=== PATIENT | female | born 1940 | race Caucasian/White ===

== ENCOUNTER 2017-01-15 | Outpatient (CLI) | payer SELFPAY | END 2017-01-15 13:02 | disposition EMS.NT | DX: R09.89 Other specified symptoms and signs involving the circulatory and respiratory systems (principal) ==

== ENCOUNTER 2017-04-05 08:00 | Outpatient (CLI) | payer MEDICARE, OTHER | END 2017-04-05 08:01 | disposition home or self-care (01) | DX: E55.9 Vitamin D deficiency, unspecified (principal); E78.5 Hyperlipidemia, unspecified; I10 Essential (primary) hypertension ==

== ENCOUNTER 2017-06-02 10:00 | Outpatient (CLI) | payer MEDICARE, OTHER | END 2017-06-02 10:15 | disposition home or self-care (01) | LOC: RT.N 10:00 | PROVIDERS: ATTEND Physician Assistant | DX: I10 Essential (primary) hypertension (principal) | CPT/HCPCS: 93005 ==

== ENCOUNTER 2017-06-02 10:00 | Outpatient (CLI) | payer MEDICARE, OTHER | END 2017-06-02 10:15 | disposition home or self-care (01) | LOC: RT.N 10:00 | PROVIDERS: ATTEND Physician Assistant | DX: I10 Essential (primary) hypertension (principal) | CPT/HCPCS: 93005 ==

== ENCOUNTER 2017-06-02 10:51 | Outpatient (CLI) | payer MEDICARE, OTHER ==
[2017-06-02 12:59] LABS: BASOPHILS # (AUTO) 0.1 10^3/uL (0.0-0.1); BASOPHILS % (AUTO) 1.8 %; EOSINOPHILS # (AUTO) 0.4 10^3/uL (0.0-0.7); EOSINOPHILS % (AUTO) 6.3 %; HCT - HEMATOCRIT 40.8 % (37.0-47.0); HGB - HEMOGLOBIN 13.8 g/dL (12.0-16.0); LYMPHOCYTES # (AUTO) 2.3 10^3/uL (1.5-3.5); LYMPHOCYTES % (AUTO) 40.3 %; MEAN CORPUSCULAR HEMOGLOBIN 30.9 pg (27.0-31.0); MEAN CORPUSCULAR HGB CONC 33.7 g/dL (32.0-36.0); MEAN CORPUSCULAR VOLUME 91.6 fL (81.0-99.0); MEAN PLATELET VOLUME 8.9 fL (7.9-10.8); MONOCYTES # (AUTO) 0.4 10^3/uL (0.0-1.0); MONOCYTES % (AUTO) 7.3 %; NEUTROPHILS # (AUTO) 2.5 10^3/uL (1.5-6.6); NEUTROPHILS % (AUTO) 44.3 %; RED BLOOD COUNT 4.45 10^6/uL (4.20-5.40); RED CELL DISTRIBUTION WIDTH 13.1 % (12.0-15.0); UNCORRECTED WHITE BLOOD COUNT 5.7 x10^3/uL; WHITE BLOOD COUNT 5.7 x10^3/uL (4.8-10.8)
[2017-06-02 13:02] LABS: ALBUMIN/GLOBULIN RATIO 1.3 (1.0-2.2); BILIRUBIN,TOTAL 0.4 mg/dL (0.2-1.0); BUN - BLOOD UREA NITROGEN 10 mg/dL (6-20); CALCIUM 10.1 mg/dL (8.5-10.3); CARBON DIOXIDE - CO2 26 mmol/L (21-32); CHLORIDE 104 mmol/L (101-111); CHOL/HDL RATIO 3.2 (<4.4); CHOLESTEROL 146 mg/dL; CREATININE 0.6 mg/dL (0.4-1.0); GFR - MDRD 97 (>89); GLUCOSE 87 mg/dL (70-100); HDL CHOLESTEROL 46 mg/dL; LDL/HDL RATIO 1.8 (<4.4); POTASSIUM 4.2 mmol/L (3.5-5.0); SODIUM 138 mmol/L (135-145); TOTAL PROTEIN 7.3 g/dL (6.7-8.2); TRIGLYCERIDES 83 mg/dL; VLDL CHOLESTEROL 17 mg/dL
== END 2017-06-02 10:52 | disposition home or self-care (01) ==
LOC: LAB.N 10:51
PROVIDERS: ATTEND Physician Assistant
DX: J44.9 Chronic obstructive pulmonary disease, unspecified (principal); I10 Essential (primary) hypertension
CPT/HCPCS: 36415; 80053; 80061; 84443; 85025; 93005

== ENCOUNTER 2017-06-10 15:15 | Outpatient (CLI) | payer MEDICARE, OTHER ==
--- NOTE | 2017-06-11 12:23 | Ultrasound Report ---
LIMITED RETROPERITONEAL ULTRASOUND: 06/10/2017 CLINICAL INDICATION: Followup aneurysm. TECHNIQUE: Real-time scanning was performed with sales representative cash registers static images obtained. FINDINGS: Ultrasound of the abdominal aorta was performed. The aorta measures 2.8 cm proximally. F usiform aneurysmal dilatation is again seen in the [id number] portion, measuring 4.1 x 4.0 cm in t he mid portion and 3.7 x 4.4 cm in the distal portion. The iliacs are normal in caliber. No free fl uid is present. IMPRESSION: INCREASING SIZE OF FUSIFORM DISTAL ABDOMINAL AORTIC ANEURYSM, NOW MEASURING 4.4 CM MAXIM AL DIAMETER (PREVIOUSLY 3.8 CM ON 05/30/2016). JOB #: [id number] EXT JOB #:[id number]
--- NOTE | 2017-06-14 08:11 | Ultrasound Report ---
CAROTID DUPLEX: 06/10/2017 CLINICAL INDICATION: Carotid bruits left side. TECHNIQUE: Real-time sonographic vascular imaging was performed by the retirement actuary through the carotid arteries utilizing both color-flow and Doppler spectral analysis. Multiple underwriting service representative static images were saved for review. Vessel PSV cm/sec 2D Plaque Estimate % ICA/CCA PSV EDV cm/sec % Stenosis RCCA Prox 77 -- RCCA Dist 58 12 RECA 63 -- RT BULB 47 -- 0.81 12 MARCOS Prox 40 -- 0.68 10 MARCOS Mid 62 -- 1.06 20 MARCOS Dist 60 -- 1.03 15 RVA 35 RVA flow direction: Antegrade. Vessel PSV cm/sec 2D Plaque Estimate % ICA/CCA PSV EDV cm/sec % Stenosis LCCA Prox 74 -- LCCA Dist 43 13 LECA 71 -- LFT BULB 43 -- 1.0 10 LICA Prox 76 -- 1.76 21 LICA Mid 77 -- 1.79 21 LICA Dist 76 -- 1.77 23 LVA 53 LVA flow direction: Antegrade. Velocity criteria are extrapolated from diameter data as defined by the Society of Radiologists in Ultrasound Consensus Conference Radiology 2003; 229; 340-346. Degree of Stenosis % ICA PSV cm/sec Plaque Estimate % ICA/CCA RSV Ratio ICA EDV cm/sec Normal < 125 None < 2.0 < 40 <50 < 125 < 50 < 2.0 < 40 50-69 125 - 130 >/= 50 2.0 - 4.0 40 - 100 >/= 70 but less than near occlusion > 230 >/= 50 > 4.0 > 100 Near occlusion High, low, or undetectable Visible lumen Variable Variable Total occlusion Undetectable No detectable lumen Not applicable Not applicable FINDINGS RIGHT: There is mild plaquing in the right carotid bifurcation, without evidence of a focal hemodynamically significant carotid stenosis. LEFT: There is mild plaquing in the left carotid bifurcation, without evidence of a focal hemodynamically significant carotid stenosis. The vertebral arteries demonstrate antegrade flow bilaterally. IMPRESSION: MILD PLAQUING BILATERALLY, WITHOUT EVIDENCE OF A FOCAL HEMODYNAMICALLY SIGNIFICANT CAROTID STENOSIS. MTDD
== END 2017-06-10 15:16 | disposition home or self-care (01) ==
LOC: DI 15:15
PROVIDERS: ATTEND Physician Assistant
DX: I71.4 Abdominal aortic aneurysm, without rupture (principal)
CPT/HCPCS: 76775; 93880

== ENCOUNTER 2018-01-07 12:43 | Outpatient (CLI) | payer MEDICARE, OTHER ==
--- NOTE | 2018-01-07 16:25 | XRAY Report ---
EXAM: CHEST RADIOGRAPHY EXAM DATE: 01/07/2018 01:42 PM. CLINICAL HISTORY: COUGH, TOBACCO ABUSE , Continuous, copd. COMPARISON: Chest x-ray 12/07/2012. TECHNIQUE: 2 views. FINDINGS: Lungs/Pleura: No focal opacities evident. No pleural effusion. No pneumothorax. Hyperinflated lung vo lumes. Mildly coarse interstitial markings. Mediastinum: Atherosclerotic aortic calcifications. Other: Scoliosis. IMPRESSION: 1. Hyperinflated lungs suggesting COPD. 2. No acute consolidation demonstrated. [facility] Referring Provider Line: [phone] SITE ID: [id number]
== END 2018-01-07 12:44 | disposition home or self-care (01) ==
LOC: DI 12:43
PROVIDERS: ATTEND Physician Assistant Medical
DX: J44.9 Chronic obstructive pulmonary disease, unspecified (principal); F17.200 Nicotine dependence, unspecified, uncomplicated
CPT/HCPCS: 71046

== ENCOUNTER 2018-01-10 02:53 | Outpatient (CLI) | payer MEDICARE, OTHER | END 2018-01-10 02:54 | disposition critical access hospital (66) | LOC: EMS 02:53 | PROVIDERS: ATTEND Surgery | DX: R06.00 Dyspnea, unspecified (principal); R05 Cough | CPT/HCPCS: A0425; A0427 ==

== ENCOUNTER 2018-01-10 03:11 | Emergency (ER) | payer MEDICARE, OTHER ==
[2018-01-10] MEDS ORDERED: predniSONE 20 MG TABLET PO STA (03:17)
[2018-01-10] MEDS ORDERED: IPRATROPIUM/ALBUTEROL 3 ML NEB INH STA (03:17)
--- NOTE | 2018-01-10 03:20 | ED Physician Documentation ---
PD HPI DYSPNEA - Stated complaint Stated Complaint: SOA - Chief complaint Chief Complaint: Resp - History obtained from History obtained from: Patient, EMS - History of Present Illness Timing - onset: How many days ago (3) Timing - onset during: Rest Timing - details: Gradual onset, Still present Inciting event(s): URI Improved by: O2, Inhaler/neb Worsened by: Exertion, Coughing Associated symptoms: Cough, Wheezing Similar symptoms before: Work up / diagnostics, Treatment Recently seen: Clinic - Additional information Additional information: Patient is a 77 year old female with a history of COPD who still smokes is presenting to the emergency department for cough, congestion and diarrhea. patient states that her symptoms have been going on for the last three days. patient states she saw her doctor who did an x-ray but she did not know the results. patient was started on azithromycin and has taken three doses. Patient's daughter called ems. patient was 94% on room air. Patient was treated with a duoneb enroute and improved to 97% on room air. Review of Systems Constitutional: reports: Chills, Myalgias. denies: Fever Eyes: denies: Discharge, Irritation Ears: denies: Ear pain Nose: reports: Rhinorrhea / runny nose, Congestion Throat: reports: Sore throat Respiratory: reports: Dyspnea, Cough, Wheezing GI: reports: Diarrhea. denies: Nausea, Vomiting : reports: Reviewed and negative. denies: Dysuria, Frequency Skin: denies: Rash, Lesions Musculoskeletal: reports: Reviewed and negative Neurologic: reports: Reviewed and negative Psychiatric: reports: Reviewed and negative Immunocompromised: denies: Immunocompromised PD PAST MEDICAL HISTORY - Past Medical History Cardiovascular: Hypertension, High cholesterol Neuro: None Endocrine/Autoimmune: None Psych: None Musculoskeletal: Osteoarthritis, Chronic back pain - Present Medications Home Medications: Ambulatory Orders Medication Instructions Recorded Confirmed Benzonatate [Tessalon] 100 mg PO TID #20 capsule 01/10/18 Codeine Phosphate/Guaifenesin 5 ml PO Q6HR #100 ml 01/10/18 [Guaifen-Codeine 100-10 mg/5 ml] Ipratropium/Albuterol [Duoneb] 3 ml INH Q6H #30 neb 01/10/18 predniSONE [Prednisone] 40 mg PO DAILY 5 Days tablet 01/10/18 - Allergies Allergies/Adverse Reactions: Allergies Allergy/AdvReac Type Severity Reaction Status Date / Time No Known Drug Allergies Allergy Verified 01/10/18 03:16 PD ED PE NORMAL - Vitals Vital signs reviewed: Yes - General General: Alert and oriented X 3 - HEENT HEENT: Atraumatic, PERRL - Neck Neck: Supple, no meningeal sign - Cardiac Cardiac: No murmur - Abdomen Abdomen: Soft, Non distended - Derm Derm: Normal color, Warm and dry - Extremities Extremities: No deformity, No edema - Neuro Neuro: Alert and oriented X 3, No motor deficit, No sensory deficit, Normal speech Eye Opening: Spontaneous Motor: Obeys Commands Verbal: Oriented GCS Score: 15 PD ED PE EXPANDED - HEENT HEENT: Nasal congestion, Rhinorrhea - Respiratory Respiratory: Wheezing, Rhonchi, Right upper lobe, Right middle lobe, Right lower lobe, Left upper lobe, Left lower lobe Results - Vitals Vitals: Vital Signs - 24 hr 01/10/18 01/10/18 01/10/18 03:12 03:25 04:25 Temperature 37 C Heart Rate 106 H 103 H 102 H Respiratory 22 28 H 20 Rate Blood Pressure 126/108 H O2 Saturation 92 01/10/18 05:04 Temperature 37.7 C H Heart Rate 104 H Respiratory 24 Rate Blood Pressure 150/46 H O2 Saturation 95 Oxygen O2 Source Room air - Labs Labs: Laboratory Tests 01/10/18 01/10/18 01/10/18 03:22 03:26 03:26 WBC 13.6 H RBC 4.14 L Hgb 12.4 Hct 37.7 MCV 91.0 MCH 30.1 MCHC 33.0 RDW 13.9 Plt Count 271 MPV 8.0 Neut # 10.7 H Lymph # 1.7 [place] # 1.0 Eos # 0.2 Baso # 0.1 Absolute Nucleated RBC 0.01 Nucleated RBC % 0.0 Sodium 137 Potassium 3.2 L Chloride 100 L Carbon Dioxide 23 Anion Gap 14.0 H BUN 9 Creatinine 0.6 Estimated GFR (MDRD) 97 Glucose 129 H Calcium 9.5 Phosphorus 3.3 Magnesium 1.7 Total Bilirubin 0.4 AST 17 ALT 15 Alkaline Phosphatase 112 Total Protein 7.0 Albumin 3.4 Globulin 3.6 Albumin/Globulin Ratio 0.9 L Lipase < 10 L Influenza A (Rapid) Negative Influenza B (Rapid) Negative Influenza Types A,B Ag - - Rads (name of study) chest x-ray Radiology: Final report received (no acute disease process) PD MEDICAL DECISION MAKING - ED course Complexity details: reviewed old records, reviewed results, re-evaluated patient , considered differential, d/w patient ED course: patient was seen and examined at bedside. Patient was started on duonebs and treated with steroids. chest x-ray was ordered. When patient returned she was treated with additional albuterol, robitussin ac and tessalon. Patient's chest x-ray and flu were negative. patient was treated with tylenol for her headache. Patient was given the option for inpatient admission for continual nebulizer treatments. patient stated that she had a nebulizer at home and would rather go home. Patient was discharged home with return precautions. Departure - Departure Disposition: 01 Home, Self Care Clinical Impression: Bronchitis, Moderate COPD (chronic obstructive pulmonary disease) Instructions: ED Bronchitis Asthmatic Follow-Up: Jabier Guerrero PA-C [Primary Care Provider] - Prescriptions: Codeine Phosphate/Guaifenesin [Guaifen-Codeine 100-10 mg/5 ml] 5 ml PO Q6HR # 100 ml Benzonatate [Tessalon] 100 mg PO TID #20 capsule Ipratropium/Albuterol [Duoneb] 3 ml INH Q6H #30 neb predniSONE [Prednisone] 40 mg PO DAILY 5 Days tablet Comments: Your symptoms today are being caused by a viral syndrome causing bronchitis. The symptoms can last for weeks at a time. the mainstay of therapy are steroids and bronchodialators (albuterol). During the acute phase you can use your nebulizer every hour. You should finish your course of azithromycin. You should follow up with your doctor this week if your symptoms don't improve. You may return to the emergency department at any time for new, worsening or uncontrollable symptoms.
[2018-01-10 03:34] LABS: BASOPHILS # (AUTO) 0.1 10^3/uL (0.0-0.1); BASOPHILS % (AUTO) 0.6 %; EOSINOPHILS # (AUTO) 0.2 10^3/uL (0.0-0.7); EOSINOPHILS % (AUTO) 1.2 %; HGB - HEMOGLOBIN 12.4 g/dL (12.0-16.0); LYMPHOCYTES # (AUTO) 1.7 10^3/uL (1.5-3.5); LYMPHOCYTES % (AUTO) 12.4 %; MEAN CORPUSCULAR HEMOGLOBIN 30.1 pg (27.0-31.0); MONOCYTES % (AUTO) 7.2 %; NEUTROPHILS # (AUTO) 10.7 10^3/uL (1.5-6.6); NEUTROPHILS % (AUTO) 78.6 %; PLT - PLATELET COUNT 271 10^3/uL (130-450); RED BLOOD COUNT 4.14 10^6/uL (4.20-5.40); RED CELL DISTRIBUTION WIDTH 13.9 % (12.0-15.0); WHITE BLOOD COUNT 13.6 x10^3/uL (4.8-10.8)
[2018-01-10 03:46] LABS: ALBUMIN 3.4 g/dL (3.2-5.5); ALBUMIN/GLOBULIN RATIO 0.9 (1.0-2.2); ALKALINE PHOSPHATASE 112 IU/L (42-121); ALT ALANINE AMINOTRANSFERASE 15 IU/L (10-60); AST ASPARTATE AMINOTRANSFERASE 17 IU/L (10-42); BILIRUBIN,TOTAL 0.4 mg/dL (0.2-1.0); BUN - BLOOD UREA NITROGEN 9 mg/dL (6-20); CALCIUM 9.5 mg/dL (8.5-10.3); CARBON DIOXIDE - CO2 23 mmol/L (21-32); CHLORIDE 100 mmol/L (101-111); CREATININE 0.6 mg/dL (0.4-1.0); GFR - MDRD 97 (>89); GLUCOSE 129 mg/dL (70-100); MAGNESIUM 1.7 mg/dL (1.7-2.8); PHOSPHORUS 3.3 mg/dL (2.5-4.6); SODIUM 137 mmol/L (135-145)
[2018-01-10 03:47] LABS: LIPASE < 10 U/L (22-51)
[2018-01-10] MEDS ORDERED: BENZONATATE 100 MG CAPSULE PO STA (04:05)
[2018-01-10] MEDS ORDERED: guaiFENesin/CODEINE 5 ML UDC PO STA (04:05)
--- NOTE | 2018-01-10 04:11 | XRAY Preliminary Report ---
Exam: XR CHEST 2 VIEW X-RAY IMPRESSION: No acute cardiopulmonary abnormality with similar findings suggestive of COPD. [facility] SITE ID: [id number]
--- NOTE | 2018-01-10 04:14 | XRAY Report ---
EXAM: CHEST RADIOGRAPHY EXAM DATE: 01/10/2018 04:02 AM. CLINICAL HISTORY: Fever, cough. COMPARISON: 01/07/2018 and 12/07/2012.. TECHNIQUE: 2 views. FINDINGS: Lungs/Pleura: The lungs are hyperinflated as before with flattening of the diaphragm and increased re trosternal clear space. Coarse interstitial markings persist. No focal consolidation. No pleural effu azael. No pneumothorax. Mediastinum: Heart and mediastinal contours are stable with normal heart size. Other: None. IMPRESSION: No acute cardiopulmonary abnormality with similar findings suggestive of COPD. [facility] Referring Provider Line: [phone] SITE ID: [id number]
[2018-01-10] MEDS ORDERED: ALBUTEROL NEB 2.5 MG/3 ML INH STA (04:18)
[2018-01-10] MEDS ORDERED: ACETAMINOPHEN 500 MG TABLET PO STA (04:59)
[2018-01-10 05:11] VITALS: BP 150/46
== END 2018-01-10 05:22 | disposition home or self-care (01) ==
LOC: EDUNIT# → SUPCPDRO 03:11 → ED 03:11
DX: J40 Bronchitis, not specified as acute or chronic (principal); J44.9 Chronic obstructive pulmonary disease, unspecified; B34.9 Viral infection, unspecified; I10 Essential (primary) hypertension; E78.00 Pure hypercholesterolemia, unspecified
CPT/HCPCS: 36415; 71046; 80053; 83690; 83735; 84100; 85025; 87275; 87276; 94640; 99283; 99284; A9270; J7512; J7613; J7620

== ENCOUNTER 2018-01-10 23:40 | Outpatient (CLI) | payer MEDICARE, OTHER | END 2018-01-10 23:41 | disposition EMS.NT | LOC: EMS 23:40 | PROVIDERS: ATTEND Surgery | DX: R06.02 Shortness of breath (principal); R42 Dizziness and giddiness ==

== ENCOUNTER 2018-01-11 13:28 | Outpatient (CLI) | payer MEDICARE, OTHER | END 2018-01-11 13:29 | disposition critical access hospital (66) | LOC: EMS 13:28 | PROVIDERS: ATTEND Surgery | DX: R06.02 Shortness of breath (principal) | CPT/HCPCS: A0425; A0427 ==

== ENCOUNTER 2018-01-11 13:49 | Inpatient (IN) | payer MEDICARE, OTHER ==
[2018-01-11] MEDS ORDERED: ALBUTEROL NEB 2.5 MG/3 ML INH STA ×2 (14:36→16:10)
--- NOTE | 2018-01-11 15:03 | XRAY Report ---
EXAM: CHEST RADIOGRAPHY EXAM DATE: 01/11/2018 02:55 PM. CLINICAL HISTORY: Cough, difficulty breathing. COMPARISON: Chest 01/10/2018. TECHNIQUE: 2 views. FINDINGS: Lungs/Pleura: Hyperexpanded lungs with flattened diaphragm as seen with COPD. No consolidation, pleur al effusion or pneumothorax. Mediastinum: Heart and mediastinal contours are unremarkable. IMPRESSION: Hyperexpanded lungs with flattened diaphragm as seen with COPD. No acute cardiopulmonary disease seen. [facility] Referring Provider Line: [phone] SITE ID: [id number]
--- NOTE | 2018-01-11 15:03 | XRAY Preliminary Report ---
Exam: XR CHEST 2 VIEW X-RAY IMPRESSION: Hyperexpanded lungs with flattened diaphragm as seen with COPD. No acute cardiopulmonary disease seen. [facility] SITE ID: [id number]
--- NOTE | 2018-01-11 15:07 | ED Physician Documentation ---
History of Present Illness - Stated complaint Stated Complaint: SOA - Chief complaint Chief Complaint: Resp - Additonal information Additional information: hx from pt 77 female with COPD seen yesterday and again today for severe soa + cough ? fever no NVD no leg swelling seen a wel or two ago in clinic rx zmax not better seen yesterday in ER neg CXR and flu swabs dc on steroids and cough meds despite q1h nebs she is soa and arrives tachy tachypneic and hypoxic Review of Systems Constitutional: denies: Fever, Chills Cardiac: denies: Chest pain / pressure Respiratory: reports: Dyspnea, Cough GI: denies: Abdominal Pain, Nausea, Vomiting Endocrine: denies: Easy bruising / bleeding Immunocompromised: denies: Immunocompromised PD PAST MEDICAL HISTORY - Past Medical History Past Medical History: Yes Cardiovascular: Hypertension, High cholesterol Neuro: None Endocrine/Autoimmune: None Psych: None Musculoskeletal: Osteoarthritis, Chronic back pain - Past Surgical History Past Surgical History: Yes - Present Medications Home Medications: Ambulatory Orders Medication Instructions Recorded Confirmed Ipratropium/Albuterol [Duoneb] 3 ml INH Q6H #30 neb 01/10/18 01/11/18 Acetaminophen [Tylenol Arthritis] 1,300 mg PO TID PRN 01/11/18 01/11/18 Albuterol 2.5 mg INH Q4H PRN 01/11/18 01/11/18 Albuterol Sulfate [Proair Hfa 2 puffs INH Q4H PRN 01/11/18 01/11/18 Inhaler] Aspirin 162.5 mg PO DAILY 01/11/18 01/11/18 Atorvastatin Calcium 40 mg PO QPM 01/11/18 01/11/18 Benzonatate [Tessalon] 100 mg PO [id number] 01/11/18 01/11/18 Codeine Phosphate/Guaifenesin 5 ml PO [id number] 01/11/18 01/11/18 [Guaifen-Codeine 100-10 mg/5 ml] Ergocalciferol [Vitamin D2] 50,000 units PO Q7D 01/11/18 01/11/18 Fluticasone/Salmeterol [Advair 1 puffs INH BID 01/11/18 01/11/18 500-50 Diskus] Lisinopril [Lisinopril] 40 mg PO DAILY 01/11/18 01/11/18 amLODIPine [Norvasc] 5 mg PO DAILY 01/11/18 01/11/18 predniSONE [Prednisone] 40 mg PO [id number] 01/11/18 01/11/18 - Allergies Allergies/Adverse Reactions: Allergies Allergy/AdvReac Type Severity Reaction Status Date / Time No Known Drug Allergies Allergy Verified 01/10/18 03:16 - Social History Does the pt smoke?: Yes Smoking Status: Current every day smoker Does the pt drink ETOH?: No Does the pt have substance abuse?: No - Immunizations Immunizations are current?: No PD ED PE NORMAL - Vitals Vital signs reviewed: Yes - General General: Alert and oriented X 3 - HEENT HEENT: PERRL, Ears normal, Moist mucous membranes - Neck Neck: Supple, no meningeal sign - Cardiac Cardiac: RRR - Respiratory Respiratory: Other (tachypneic and labored but moving air some and no wheezes heard) - Abdomen Abdomen: Non tender - Derm Derm: Normal color - Extremities Extremities: No edema, No calf tenderness / cord - Neuro Neuro: Alert and oriented X 3 Results - Vitals Vitals: Vital Signs - 24 hr 01/11/18 01/11/18 01/11/18 13:53 14:02 14:06 Temperature 37.3 C Heart Rate 116 H 102 H 113 H Respiratory 26 H 24 24 Rate Blood Pressure 130/113 H 135/78 H O2 Saturation 94 93 89 L 01/11/18 01/11/18 01/11/18 15:00 15:16 16:24 Temperature Heart Rate 98 100 100 Respiratory 18 18 20 Rate Blood Pressure 136/65 H 139/105 H O2 Saturation 98 97 01/11/18 01/11/18 16:30 17:17 Temperature Heart Rate 102 H 102 H Respiratory 20 20 Rate Blood Pressure 139/73 H O2 Saturation 95 Oxygen O2 Source Nasal cannula Oxygen Flow Rate 2 - Labs Labs: Laboratory Tests 01/11/18 01/11/18 01/11/18 14:47 14:57 14:57 WBC 12.6 H RBC 4.08 L Hgb 12.2 Hct 36.6 L MCV 89.7 MCH 30.0 MCHC 33.4 RDW 14.1 Plt Count 305 MPV 8.0 Neut # Not Reportable Lymph # Not Reportable [place] # Not Reportable Eos # Not Reportable Baso # Not Reportable Absolute Nucleated RBC Not Reportable Total Counted 100 Band Neuts % (Manual) 5 Abnorm Lymph % (Manual) 0 Myelocytes % 1 H Nucleated RBC % Not Reportable Neutrophils # (Manual) 9.7 H Lymphocytes # (Manual) 1.6 Monocytes # (Manual) 1.1 H Eosinophils # (Manual) 0.0 Basophils # (Manual) 0.0 Differential Comment MANUAL DIFFERENTIAL D-Dimer 246.4 Sodium Potassium Chloride Carbon Dioxide Anion Gap BUN Creatinine Estimated GFR (MDRD) Glucose Calcium Troponin I B-Natriuretic Peptide 143 H 01/11/18 01/11/18 14:57 14:57 WBC RBC Hgb Hct MCV MCH MCHC RDW Plt Count MPV Neut # Lymph # [place] # Eos # Baso # Absolute Nucleated RBC Total Counted Band Neuts % (Manual) Abnorm Lymph % (Manual) Myelocytes % Nucleated RBC % Neutrophils # (Manual) Lymphocytes # (Manual) Monocytes # (Manual) Eosinophils # (Manual) Basophils # (Manual) Differential Comment D-Dimer Sodium 135 Potassium 3.2 L Chloride 99 L Carbon Dioxide 23 Anion Gap 13.0 BUN 13 Creatinine 0.6 Estimated GFR (MDRD) 97 Glucose 124 H Calcium 9.9 Troponin I < 0.04 B-Natriuretic Peptide - Rads (name of study) CXR Radiology: See rad report (NACPD) CTPA Radiology: See rad report (no PE, no infiltrate, no effusion no pericarida effusion, 4.4 cm infrarenal AAA (incidnetal - no abd pain) no diissection but mural thrombus in thoracic aorta and a spiculated L lung 6.7 cm nodule with numerous smaller nodules concerning for cancer) PD MEDICAL DECISION MAKING - ED course ED course: no pna and no PE and no CHF but despite steroids and q 1 hr nebs pt is so SOA she cannot walk to the bathroom - she desaturated on 2 L NC O2 walking from the bed to the toilet 5 ft away will admit advised pt of nodules and possible cancer and need for more work up and also about her AAA d/w hospitalist at 1725 Departure - Departure Disposition: 66 [facility] DC/Xfer Clinical Impression: Hypoxia, Lung nodules COPD (chronic obstructive pulmonary disease) Qualifiers: COPD type: COPD with acute exacerbation Qualified Code(s): J44.1 - Chronic obstructive pulmonary disease with (acute) exacerbation AAA (abdominal aortic aneurysm) Qualifiers: Presence of rupture: without rupture Qualified Code(s): I71.4 - Abdominal aortic aneurysm, without rupture Condition: Fair Follow-Up: Jabier Guerrero PA-C [Primary Care Provider] - Comments: The CT scan did not show pneumonia or blood clots in your lungs - but it did show lung nodules that could be cancer - you need further work up with a test called a PET scan. Also on the CT the radiologist notes that you have an aortic aneurysm in your abdominal cavity - it is not large enough to need surgery right now but it should be checked by ultrasound every 6 months and if it gets bigger than 5 cm surgery might be considered
[2018-01-11 15:08] LABS: BASOPHILS % (AUTO) 0.4 %; HGB - HEMOGLOBIN 12.2 g/dL (12.0-16.0); LYMPHOCYTES % (AUTO) 11.3 %; MEAN CORPUSCULAR HGB CONC 33.4 g/dL (32.0-36.0); MEAN CORPUSCULAR VOLUME 89.7 fL (81.0-99.0); NEUTROPHILS % (AUTO) 76.3 %; PLT - PLATELET COUNT 305 10^3/uL (130-450); RED BLOOD COUNT 4.08 10^6/uL (4.20-5.40); RED CELL DISTRIBUTION WIDTH 14.1 % (12.0-15.0); WHITE BLOOD COUNT 12.6 x10^3/uL (4.8-10.8)
[2018-01-11 15:13] LABS: ABNORMAL LYMPHS % (MANUAL) 0 %
[2018-01-11] MEDS ORDERED: IOPAMIDOL-300 100 ML VIAL ONE (15:17)
[2018-01-11 15:24] LABS: CALCIUM 9.9 mg/dL (8.5-10.3); CREATININE 0.6 mg/dL (0.4-1.0)
[2018-01-11 15:36] LABS: BAND NEUTROPHILS % (MANUAL) 5 %; LYMPHOCYTES # (MANUAL) 1.6 10^3/uL (1.5-3.5); LYMPHOCYTES % (MANUAL) 13 %; MONOCYTES # (MANUAL) 1.1 10^3/uL (0.0-1.0); MYELOCYTES % (MANUAL) 1 %; NEUTROPHILS # (MANUAL) 9.7 10^3/uL (1.5-6.6); NEUTROPHILS % (MANUAL) 72 %
[2018-01-11 15:38] LABS: DIFFERENTIAL COMMENT MANUAL DIFFERENTIAL
[2018-01-11] MEDS ORDERED: IOPAMIDOL-300 100 ML VIAL IVP ONE (16:00)
[2018-01-11] MEDS ORDERED: methylPREDNISolone SUCCINATE 125 MG/2 ML VIAL IVP STA (16:10)
--- NOTE | 2018-01-11 16:29 | CT Preliminary Report ---
Exam: CT CHEST ANGIO (PE) IMPRESSION: 1. No evidence for pulmonary emboli. 2. Moderate emphysema. Spiculated left superior segment lower lobe pulmonary nodule concerning for pr imary lung malignancy and further workup is recommended. A PET CT scan could be obtained to further e valuate. 3. Multiple small bilateral pulmonary nodules, could represent metastasis. Infectious/inflammatory no dules are in the differential. 4. Infrarenal abdominal aortic aneurysm measuring 4.4 cm. 5. Otherwise, as above. [facility] SITE ID: [id number]
--- NOTE | 2018-01-11 16:37 | CT Report ---
EXAM: CT ANGIOGRAM CHEST EXAM DATE: 01/11/2018 04:00 PM. CLINICAL HISTORY: Shortness of air. Tachypneic, hypoxic. Negative chest x-ray. COMPARISON: None. TECHNIQUE: Routine helical imaging was performed through the chest in the pulmonary arterial phase. I V Contrast: 80 mL Isovue 300. Reconstructions: Coronal 3-D MIP reconstructions.Sagittal and coronal. In accordance with CT protocol optimization, one or more of the following dose reduction techniques w ere utilized for this exam: automated exposure control, adjustment of mA and/or KV based on patient s ize, or use of iterative reconstructive technique. FINDINGS: There is an infrarenal abdominal aortic aneurysm measuring 4.4 cm. Small liver cyst seen at the lateral segment left hepatic lobe measuring 2 cm, Hounsfield units of 6. Mediastinum: No thoracic aortic aneurysm or dissection. Moderate diffuse atherosclerotic disease in t he thoracic aorta. Large amount of mural-based thrombus seen within the descending thoracic aorta, se e axial image 101. No cardiac enlargement. Coronary artery calcification. Prominent prevascular lymph node measuring 7 mm. Multiple other prominent mediastinal lymph nodes. No lymphadenopathy. Left elis r prominent lymph node measuring 8 mm. Pulmonary Arteries: No evidence for pulmonary emboli. Lungs: Moderate centrilobular emphysema. There is a spiculated pulmonary nodule seen in the superior segment left lower lobe measuring 6.7 x 1.2 x 1 cm, see axial image 45 on the lung windows. This is c oncerning for primary lung malignancy and further workup is recommended. A PET/CT scan could be obtai mary to further evaluate. There is a calcified pulmonary nodule at the lingula. Multiple other small pulmonary nodules are seen at the lingula inferiorly with the largest measuring 5 mm, see axial image 88. There are multiple sm all nodules seen posteriorly in the left lower lobe, one of the largest measuring 5 mm, see axial zackary ge 96. There are multiple small pulmonary nodules seen in the right lower lobe with the largest measu ring 3 mm. 3 mm right upper lobe pulmonary nodule on axial image 40. 3 mm right upper lobe anterior m edial pulmonary nodule on axial image 46. A few small pulmonary nodules are seen anteriorly at the in ferior aspect of the right upper lobe, largest measuring 4 mm, see axial image 76. No acute bone findings. IMPRESSION: 1. No evidence for pulmonary emboli. 2. Moderate emphysema. Spiculated left superior segment lower lobe pulmonary nodule concerning for pr imary lung malignancy and further workup is recommended. A PET CT scan could be obtained to further e valuate. 3. Multiple small bilateral pulmonary nodules, could represent metastasis. Infectious/inflammatory no dules are in the differential. 4. Infrarenal abdominal aortic aneurysm measuring 4.4 cm. 5. Otherwise, as above. [facility] Referring Provider Line: [phone] SITE ID: [id number]
[2018-01-11] MEDS ORDERED: ACETAMINOPHEN 325 MG TABLET PO PRN ×2 (17:44→23:09)
[2018-01-11] MEDS ORDERED: SODIUM CHLORIDE FLUSH 0.9% 10 ML SYRINGE IVP PRN (17:44)
--- NOTE | 2018-01-11 17:48 | HISTORY & PHYSICAL EXAMINATION ---
Chief Complaint - Chief Complaint Chief Complaint: severe shortness of breath, cough. History of Present Illness - Admitted From Admitted From:: ED - History Obtained From Records Reviewed: yes History obtained from: chart review, patient Exam Limitations: none - History of Present Illness HPI Comment/Other: Mirela Recinos is a 77-year old white female with a past medical history of tobacco dependence, emphysema, COPD, HTN, hyperlipidemia, chronic back pain, osteoarthritis, and anxiety. She presented to the ED yesterday for the same problem, was given a z-brian, steroids and sent home. She returned again today and was found to be hypoxic, severely short of breath, increased cough and tachycardic. A chest CT was completed that showed suspicious pulmonary nodules , and a AAA, and no PE. Flu swabs were negative. Patient had a mildly elevated WBC count of 12.6, although she was just put on steroids within the last 24 hours. She will be admitted to inpatient for further management of COPD , and possibly inner ear infection. History - Past Medical History Cardiovascular: reports: Hypertension, High cholesterol Respiratory: reports: COPD, Emphysema, Shortness of breath Neuro: reports: None, Headache/migraine Endocrine/Autoimmune: reports: None GI: reports: GERD : reports: Incontinence, Frequency HEENT: reports: Chronic vision loss, Chronic sinusitis, Chronic hearing loss Psych: reports: Depression, Anxiety Musculoskeletal: reports: Osteoarthritis, Chronic back pain MRSA Hx?: No - Past Surgical History Cardiovascular: reports: AAA (new on this admission and measures 4.4) - Family & Social History Family History: Mother: , Father: , Cancer, Sister: , Alcoholism, Brother: Family History Comment/Other: Father of leukemia, mother of liver cirrohsis, sister of rheumatoid arthritis, another sister of accidental , ETOH. 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 She raised her children in [place], [place], [place]. She has been to [place], her second marriage, for the past 41 years. Dax has multiple medical problems. The patient has 5 biological children. She admits to life long tobacco use, although she quit a few weeks ago. She denies alcohol or illicit drug use. - Substance History Use: Uses substance without health or social issues: Tobacco Use Issues: Intoxication Abuse: Recurrent use of substance despite neg consequences: NONE Dependence: Experiences withdrawal or developed tolerances: NONE Tobacco Details: Cigarettes - POLST Patient has POLST: No POLST Status: Full Code Meds/Allgy - Home Medications Home Medications: Ambulatory Orders Medication Instructions Recorded Confirmed Ipratropium/Albuterol [Duoneb] 3 ml INH Q6H #30 neb 01/10/18 01/11/18 Acetaminophen [Tylenol Arthritis] 1,300 mg PO TID PRN 01/11/18 01/11/18 Albuterol 2.5 mg INH Q4H PRN 01/11/18 01/11/18 Albuterol Sulfate [Proair Hfa 2 puffs INH Q4H PRN 01/11/18 01/11/18 Inhaler] Aspirin 162.5 mg PO DAILY 01/11/18 01/11/18 Atorvastatin Calcium 40 mg PO QPM 01/11/18 01/11/18 Benzonatate [Tessalon] 100 mg PO [id number] 01/11/18 01/11/18 Codeine Phosphate/Guaifenesin 5 ml PO [id number] 01/11/18 01/11/18 [Guaifen-Codeine 100-10 mg/5 ml] Ergocalciferol [Vitamin D2] 50,000 units PO Q7D 01/11/18 01/11/18 Fluticasone/Salmeterol [Advair 1 puffs INH BID 01/11/18 01/11/18 500-50 Diskus] Lisinopril [Lisinopril] 40 mg PO DAILY 01/11/18 01/11/18 amLODIPine [Norvasc] 5 mg PO DAILY 01/11/18 01/11/18 predniSONE [Prednisone] 40 mg PO [id number] 01/11/18 01/11/18 - Allergies Allergies/Adverse Reactions: Allergies Allergy/AdvReac Type Severity Reaction Status Date / Time No Known Drug Allergies Allergy Verified 01/10/18 03:16 Review of Systems - Constitutional Constitutional: reports: Fatigue, Weakness, Poor appetite, Weight loss - Eyes Eyes: reports: Vision loss, Corrective lenses - Ears, Nose & Throat Ears, Nose & Throat: reports: Ear pain, Hearing loss, Nasal discharge, Nasal obstruction, Nasal congestion, Postnasal drainage, Dentures, Sore throat - Cardiovascular Cariovascular: reports: Lightheadedness, Decr. exercise tolerance - Respiratory Respiratory: reports: Cough, Wheezing, SOB at rest, SOB with exertion - Gastrointestinal Gastrointestinal: reports: Reflux/heartburn, Poor appetite. denies: Abdominal pain, Black stools, Coffee grounds emesis - Genitourinary Genitourinary: reports: Dysuria, Frequency, Urgency, Incontinence - Musculoskeletal Musculoskeletal: reports: Muscle aches - Integumentary Integumentary: reports: Dryness - Neurological Neurological: reports: General weakness, Headache, Dizziness, Pre-existing deficit, Abnormal gait - Psychiatric Psychiatric: reports: Depression, Anxiety - All Other Systems All Other Systems: reports: Reviewed and negative Exam - Vital Signs Reviewed Vital Signs: Yes Vital Signs: Vital Signs x48h Temp Pulse Resp BP Pulse Ox 01/11/18 17:17 102 H 20 139/73 H 95 01/11/18 16:30 102 H 20 01/11/18 16:24 100 20 139/105 H 97 01/11/18 15:16 100 18 136/65 H 98 01/11/18 15:00 98 18 01/11/18 14:06 113 H 24 89 L 01/11/18 14:02 102 H 24 135/78 H 93 01/11/18 13:53 37.3 C 116 H 26 H 130/113 H 94 - Physical Exam General Appearance: positive: Alert, Moderate distress, Anxious Eyes Bilateral: positive: Normal inspection ENT: positive: Purulent nasal drainage, Pharyngeal erythema, Dry mucous membranes, Other (bilateral purulent typmanic membranes) Neck: positive: No JVD, Trachea midline, Lymphadenopathy (R), Lymphadenopathy (L ) Respiratory: positive: Chest non-tender, Wheezes, Rhonchi Cardiovascular: positive: No gallop, Irregularly irregular, Tachycardia, Systolic murmur, Decreased pulse(s) Peripheral Pulses: positive: 1+ Abdomen: positive: Non-tender, No organomegaly, Nml bowel sounds, No distention Back: positive: Nml inspection Skin: positive: No rash, Warm, Dry Extremities: positive: Non-tender, Full ROM, Nml appearance, No pedal edema Neurologic/Psychiatric: positive: Oriented x3, CN's nml (2-12), Motor nml, Sensation nml, Depressed mood/affect Reflexes: Bicep (R): 3+, Bicep (L): 3+ Conclusion/Plan - Problem List (1) COPD exacerbation Conclusion/Plan: Patient has been a life long smoker of cigarettes and has recently quit "a few weeks ago". She has since been prescribed a nicotine patch of 21mg. 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 She has required more frequent use of her short acting rescue inhaler and notes that after a while these were not helping. Patient does not wear home oxygen, but has needed it ever since presenting to the ED. Plan: IV steroids, IV antibiotic, nebs, RT therapy, and continuous oxygen. (2) Chronic sinusitis, unspecified Conclusion/Plan: Upon exam, patient had very full, dull bilateral irritated tympanic membranes with erythema noted in bilateral ear canals. Patient states that besides her increased breathing efforts, her second complaint is feeling full of fluid in her ears. Plan: Start Clindamycin IV, neomycin ear gtts, Flonase spray, and Afrin spray for 3 days. (3) Hypoxemia Conclusion/Plan: Patient was noted to have an increased respiratory rate in the 30-40's upon admission. She was also noted to be using all of her accessory muscles for breathing with increased anxiety. Patient denies home oxygen use. Plan: Oxygen supplementation, nebulizers, and pulmonary toileting. Respiratory culture ordered. - Lab Results Lab results reviewed: Yes Tripp Bones: 01/13/18 05:10 01/13/18 05:10 - Diagnostic Imaging Results Diagnostic Imaging Results: positive: Prelim report reviewed, Final report reviewed - EKG Results EKG Interpreted Independently: Yes EKG Comparison: No prior EKG Core Measures - Anticipated LOS I expect patient to be DC'd or transferred within 96 hours.: Yes - DVT/VTE - Prophylaxis VTE/DVT Device ordered at admit?: Yes VTE/DVT Prophylaxis med ordered at admit?: Yes - Stroke - Rehab Assessment Rehab services assessment to be ordered?: No Not Ordered - Medical Reason: Contraindicated - AMI - Statin at Admit Aspirin Prescribed on Admit: Yes
[2018-01-11] MEDS: MORPHINE SOL 10 MG/0.5 ML SYRINGE PO PRN (20:39)
[2018-01-11] MEDS: SODIUM CHLORIDE FLUSH 0.9% 10 ML SYRINGE IVP SCH (20:39)
[2018-01-11] MEDS: SODIUM CHLORIDE 0.9% 1,000 ML IV SCH (20:40)
[2018-01-11] MEDS: CLINDAMYCIN INJ 300 MG in SODIUM CHLORIDE 0.9% 50 ML IV SCH (20:40)
[2018-01-11] MEDS: LEVALBUTEROL 1.25 MG/3 ML NEB INH PRN (20:44)
[2018-01-11] MEDS: methylPREDNISolone SUCCINATE 125 MG/2 ML VIAL IVP SCH (21:32)
[2018-01-11] MEDS: LORazepam 0.5 MG TABLET PO PRN (21:32)
[2018-01-11] MEDS ORDERED: SODIUM CHLORIDE 0.65% NASAL SPRAY NAS PRN (23:03)
[2018-01-11] MEDS ORDERED: BENZONATATE 100 MG CAPSULE PO SCH (23:45)
[2018-01-11] MEDS ORDERED: BUDESONIDE/FORMOTEROL 160/4.5 MCG INHALER INH SCH (23:45)
[2018-01-12] MEDS: CLINDAMYCIN INJ 300 MG in SODIUM CHLORIDE 0.9% 50 ML IV SCH ×2 (00:44→05:01)
[2018-01-12] MEDS: guaiFENesin 600 MG TABLET PO SCH ×3 (00:47→20:27)
[2018-01-12] MEDS: OXYMETAZOLINE NASAL SPRAY NAS SCH ×3 (00:49→20:28)
[2018-01-12] MEDS: NEOMYCIN/POLYMYX/HC OTIC DROPS EACHEAR SCH ×4 (00:52→20:29)
[2018-01-12] MEDS: PIPERACILLIN/TAZOBACTAM 4.5 GM in SODIUM CHLORIDE 0.9% MINIBAG 100 ML IV SCH ×4 (01:25→19:21)
[2018-01-12 05:12] LABS: EOSINOPHILS % (AUTO) 0.1 %; HGB - HEMOGLOBIN 11.8 g/dL (12.0-16.0); LYMPHOCYTES % (AUTO) 6.7 %; MEAN CORPUSCULAR HEMOGLOBIN 29.6 pg (27.0-31.0); MEAN CORPUSCULAR HGB CONC 32.6 g/dL (32.0-36.0); MEAN CORPUSCULAR VOLUME 90.7 fL (81.0-99.0); MEAN PLATELET VOLUME 8.2 fL (7.9-10.8); MONOCYTES % (AUTO) 4.8 %; NEUTROPHILS % (AUTO) 86.4 %; PLT - PLATELET COUNT 283 10^3/uL (130-450); RED BLOOD COUNT 3.97 10^6/uL (4.20-5.40); RED CELL DISTRIBUTION WIDTH 14.1 % (12.0-15.0); WHITE BLOOD COUNT 9.3 x10^3/uL (4.8-10.8)
[2018-01-12 05:14] LABS: ALBUMIN/GLOBULIN RATIO 0.9 (1.0-2.2); BILIRUBIN,TOTAL 0.2 mg/dL (0.2-1.0); CALCIUM 9.4 mg/dL (8.5-10.3); CREATININE 0.6 mg/dL (0.4-1.0); MAGNESIUM 2.1 mg/dL (1.7-2.8); TOTAL PROTEIN 6.4 g/dL (6.7-8.2)
[2018-01-12] MEDS: BENZONATATE 100 MG CAPSULE PO PRN ×3 (05:15→20:28)
[2018-01-12 05:29] LABS: ABNORMAL LYMPHS % (MANUAL) 0 %
[2018-01-12 05:49] LABS: BAND NEUTROPHILS % (MANUAL) 4 %; LYMPHOCYTES # (MANUAL) 1.4 10^3/uL (1.5-3.5); LYMPHOCYTES % (MANUAL) 9 %; MONOCYTES # (MANUAL) 0.3 10^3/uL (0.0-1.0); NEUTROPHILS # (MANUAL) 7.6 10^3/uL (1.5-6.6); NEUTROPHILS % (MANUAL) 78 %
[2018-01-12 05:51] LABS: DIFFERENTIAL COMMENT MANUAL DIFFERENTIAL; PLATELET ESTIMATE, MANUAL NORMAL (130-450,000) (NORMAL); PLATELET MORPHOLOGY NORMAL APPEARANCE (NORMAL); RBC MORPHOLOGY (MULTIPLE) NORMAL APPEARANCE (NORMAL)
[2018-01-12] MEDS: methylPREDNISolone SUCCINATE 125 MG/2 ML VIAL IVP SCH ×3 (05:52→20:27)
[2018-01-12] MEDS: SODIUM CHLORIDE FLUSH 0.9% 10 ML SYRINGE IVP SCH ×3 (05:58→20:29)
[2018-01-12] MEDS: LORazepam 0.5 MG TABLET PO PRN ×2 (07:57→18:15)
[2018-01-12] MEDS: guaiFENesin/CODEINE 5 ML UDC PO SCH ×3 (07:57→18:16)
[2018-01-12] MEDS: MORPHINE SOL 10 MG/0.5 ML SYRINGE PO PRN ×2 (07:57→18:10)
[2018-01-12] MEDS ORDERED: ACETAMINOPHEN 500 MG TABLET PO PRN (09:13)
[2018-01-12] MEDS: SODIUM CHLORIDE 0.9% 1,000 ML IV SCH ×2 (09:22→21:07)
[2018-01-12] MEDS: ASPIRIN 325 MG TABLET PO SCH (09:23)
[2018-01-12] MEDS: POLYETHYLENE GLYCOL 3350 17 GM PACKET PO SCH (09:23)
[2018-01-12] MEDS: FAMOTIDINE 20 MG TABLET PO SCH (09:24)
[2018-01-12] MEDS: ENOXAPARIN 40 MG/0.4 ML SYRINGE SUBQ SCH (09:24)
[2018-01-12] MEDS: amLODIPine 5 MG TABLET PO SCH (09:24)
[2018-01-12] MEDS: oxyCODONE 5 MG TABLET PO PRN ×3 (09:24→20:27)
[2018-01-12] MEDS: FLUTICASONE NASAL SPRAY NAS SCH ×2 (09:31→10:00)
[2018-01-12] MEDS: FORMOTEROL FUMARATE NEB 20 MCG/2 ML INH SCH ×2 (09:45→20:18)
[2018-01-12] MEDS: BUDESONIDE 0.5 MG/2 ML NEB INH SCH ×2 (09:45→20:19)
[2018-01-12] MEDS: NICOTINE 21 MG PATCH TOP SCH (12:30)
[2018-01-12] MEDS: CLINDAMYCIN IV 600 MG/50 ML IV SCH ×2 (12:30→18:17)
[2018-01-12] MEDS: LEVALBUTEROL 1.25 MG/3 ML NEB INH PRN (14:45)
--- NOTE | 2018-01-12 18:17 | PROVIDER PROGRESS NOTE ---
Subjective - Prog Note Date Prog Note Date: 01/12/18 Prog Note Time: 07:00 - Subjective Pt reports feeling: No change Subjective: Mirela started out having a rough AM, but soon improved as the day went on. She denies difficulty breathing, chest pain, N/V or a new cough. Current Medications - Current Medications Current Medications: Active Medications Acetaminophen (Tylenol) 1,300 mg PO TID PRN PRN Reason: PAIN Last Admin: 01/12/18 07:59 Dose: 975 mg Acetaminophen (Tylenol) 1,000 mg PO TID PRN PRN Reason: PAIN Amlodipine Besylate (Norvasc) 5 mg PO DAILY [facility] Last Admin: 01/12/18 09:24 Dose: 5 mg Aspirin (Adalberto) 162.5 mg PO DAILY [facility] Last Admin: 01/12/18 09:23 Dose: 162.5 mg Atorvastatin Calcium (Lipitor) 40 mg PO QPM [facility] Benzonatate (Tessalon) 100 mg PO TID PRN PRN Reason: Cough Last Admin: 01/12/18 13:39 Dose: 100 mg Budesonide (Pulmicort) 0.5 mg INH RTBID [facility] Last Admin: 01/12/18 09:45 Dose: 0.5 mg Enoxaparin Sodium (Lovenox) 40 mg SUBQ DAILY [facility] Last Admin: 01/12/18 09:24 Dose: 40 mg Famotidine (Pepcid) 20 mg PO DAILY [facility] Last Admin: 01/12/18 09:24 Dose: 20 mg Fluticasone Propionate (Flonase) 1 sprays STU DAILY [facility] Last Admin: 01/12/18 10:00 Dose: 1 spr Formoterol Fumarate (Perforomist) 20 mcg INH RTBID [facility] Last Admin: 01/12/18 09:45 Dose: 20 mcg Guaifenesin (Mucinex) 1,200 mg PO BID [facility] Last Admin: 01/12/18 09:23 Dose: 1,200 mg Guaifenesin/Codeine Phosphate (Robitussin Ac) 5 ml PO Q6HR [facility] Stop: 01/17/18 00:01 Last Admin: 01/12/18 12:30 Dose: 5 ml Sodium Chloride (Normal Saline 0.9%) 1,000 mls @ 100 mls/hr IV .Q10H [facility] Last Infusion: 01/12/18 14:00 Dose: 100 mls/hr Piperacillin Sod/Tazobactam (Sod 4.5 gm/ Sodium Chloride) 100 mls @ 200 mls/hr IV Q6H [facility] Last Infusion: 01/12/18 14:36 Dose: Infused Clindamycin Phosphate (Cleocin 600 Mg/50 Ml) 50 mls @ 100 mls/hr IV Q6HR [facility] Last Infusion: 01/12/18 13:02 Dose: Infused Levalbuterol HCl (Xopenex) 1.25 mg INH Q4H PRN PRN Reason: Shortness of Air/Wheezing Last Admin: 01/12/18 14:45 Dose: 1.25 mg Lorazepam (Ativan) 0.5 mg PO Q6H PRN PRN Reason: Anxiety Last Admin: 01/12/18 07:57 Dose: 0.5 mg Methylprednisolone Sodium Succinate (Solu-Medrol (125mg Vial)) 125 mg IVP TID [facility] Last Admin: 01/12/18 13:23 Dose: 125 mg Morphine Sulfate (Roxanol) 5 mg PO Q2HR PRN PRN Reason: PAIN Last Admin: 01/12/18 07:57 Dose: 5 mg Neomycin/Polymyxin/Hydrocortisone (Cortisporin Otic Drops) 4 drops EACHEAR TID [facility] Last Admin: 01/12/18 13:23 Dose: 4 drops Nicotine (Nicoderm) 1 patch TOP DAILY [facility] Last Admin: 01/12/18 12:30 Dose: 1 patch Oxycodone HCl (Roxicodone) 5 mg PO Q4HR PRN PRN Reason: PAIN Last Admin: 01/12/18 13:38 Dose: 5 mg Oxymetazoline HCl (Afrin) 2 sprays STU BID [facility] Stop: 01/14/18 23:44 Last Admin: 01/12/18 09:24 Dose: 2 sprays Polyethylene Glycol (Miralax) 17 gm PO DAILY [facility] Last Admin: 01/12/18 09:23 Dose: 17 gm Sodium Chloride (Normal Saline Flush 0.9%) 10 ml IVP PRN PRN PRN Reason: NEEDED PER PROVIDER ORDERS Last Admin: 01/11/18 21:32 Dose: 10 ml Sodium Chloride (Normal Saline Flush 0.9%) 10 ml IVP Q8HR [facility] Last Admin: 01/12/18 13:15 Dose: Not Given Sodium Chloride (Piedra) 2 sprays STU Q4HR PRN PRN Reason: Nasal Congestion Temazepam (Restoril) 15 mg PO QPM PRN PRN Reason: Insomnia Acetaminophen [Tylenol Arthritis] 1,300 mg PO TID PRN 01/11/18 Albuterol 2.5 mg INH Q4H PRN 01/11/18 Albuterol Sulfate [Proair Hfa Inhaler] 2 puffs INH Q4H PRN 01/11/18 Aspirin 162.5 mg PO DAILY 01/11/18 Atorvastatin Calcium 40 mg PO QPM 01/11/18 Benzonatate [Tessalon] 100 mg PO [id number] 01/11/18 Codeine Phosphate/Guaifenesin [Guaifen-Codeine 100-10 mg/5 ml] 5 ml PO [id number] 01/11/18 Ergocalciferol [Vitamin D2] 50,000 units PO Q7D 01/11/18 Fluticasone/Salmeterol [Advair 500-50 Diskus] 1 puffs INH BID 01/11/18 Lisinopril [Lisinopril] 40 mg PO DAILY 01/11/18 amLODIPine [Norvasc] 5 mg PO DAILY 01/11/18 predniSONE [Prednisone] 40 mg PO [id number] 01/11/18 Objective - Vital Signs/Intake & Output Reviewed Vital Signs: Yes Vital Signs: Vital Signs x48h Temp Pulse Pulse Resp BP Pulse Ox 01/12/18 15:34 36.6 C 84 16 116/63 94 01/12/18 14:45 76 16 01/12/18 13:43 24 92 Intake & Output: Intake & Output 01/09/18 01/10/18 01/11/18 01/12/18 23:59 23:59 23:59 23:59 Intake Total 352 2222.333 Output Total 350 Balance 352 1872.333 - Objective General Appearance: positive: No acute distress, Alert, Moderate distress, Anxious Eyes Bilateral: positive: Normal inspection Eyes: OU Conjunctivae pale ENT: positive: ENT inspection nml, Pharyngeal erythema, Dry mucous membranes Neck: positive: Nml inspection, Thyroid nml, Lymphadenopathy (R), Lymphadenopathy (L) Respiratory: positive: Chest non-tender, Wheezes, Rhonchi Cardiovascular: positive: No gallop, Irregularly irregular, Systolic murmur, Decreased pulse(s) Peripheral Pulses: 1+ Radial (R), 1+ Radial (L) Abdomen: positive: Non-tender, No organomegaly, Nml bowel sounds, No distention Back: positive: Nml inspection Skin: positive: No rash, Warm, Dry, Pallor Extremities: positive: Non-tender, Full ROM, Pedal edema Neurologic/Psychiatric: positive: Oriented x3, CN's nml (2-12), Motor nml, Depressed mood/affect Reflexes: Bicep (R): 2+, Bicep (L): 2+ - Lab Results Fish Bones: 01/13/18 05:10 01/13/18 05:10 Other Labs: Lab Results x24hrs 01/12/18 01/12/18 01/12/18 Range/Units 04:50 04:50 04:50 WBC 9.3 (4.8-10.8) x10^3/uL RBC 3.97 L (4.20-5.40) 10^6/uL Hgb 11.8 L (12.0-16.0) g/dL Hct 36.0 L (37.0-47.0) % MCV 90.7 (81.0-99.0) fL MCH 29.6 (27.0-31.0) pg MCHC 32.6 (32.0-36.0) g/dL RDW 14.1 (12.0-15.0) % Plt Count 283 (130-450) 10^3/uL MPV 8.2 (7.9-10.8) fL Neut # Not Reportable Lymph # Not Reportable [place] # Not Reportable Eos # Not Reportable Baso # Not Reportable Absolute Nucleated RBC Not Reportable Total Counted 100 Band Neuts % (Manual) 4 (0 - 10) % Reactive Lymphs % (Man) 6 % Abnorm Lymph % (Manual) 0 % Nucleated RBC % Not Reportable Neutrophils # (Manual) 7.6 H (1.5-6.6) 10^3/uL Lymphocytes # (Manual) 1.4 L (1.5-3.5) 10^3/uL Monocytes # (Manual) 0.3 (0.0-1.0) 10^3/uL Eosinophils # (Manual) 0.0 (0-0.7) 10^3/uL Basophils # (Manual) 0.0 (0-0.1) 10^3/uL Differential Comment MANUAL DIFFERENTIAL Platelet Estimate NORMAL (130-450,000) (NORMAL) Platelet Morphology NORMAL APPEARANCE (NORMAL) RBC Morph Micro Appear NORMAL APPEARANCE (NORMAL) Sodium 138 (135-145) mmol/L Potassium 4.2 (3.5-5.0) mmol/L Chloride 100 L (101-111) mmol/L Carbon Dioxide 26 (21-32) mmol/L Anion Gap 12.0 (6-13) BUN 14 (6-20) mg/dL Creatinine 0.6 (0.4-1.0) mg/dL Estimated GFR (MDRD) 97 (>89) Glucose 140 H (70-100) mg/dL Calcium 9.4 (8.5-10.3) mg/dL Magnesium 2.1 (1.7-2.8) mg/dL Total Bilirubin 0.2 (0.2-1.0) mg/dL AST 31 (10-42) IU/L ALT 25 (10-60) IU/L Alkaline Phosphatase 94 (42-121) IU/L Troponin I < 0.04 (<0.49) ng/mL Total Protein 6.4 L (6.7-8.2) g/dL Albumin 3.0 L (3.2-5.5) g/dL Globulin 3.4 (2.1-4.2) g/dL Albumin/Globulin Ratio 0.9 L (1.0-2.2) - Diagnostic Imaging Diagnostic Imaging Results: positive: Final report reviewed Assessment/Plan - Problem List (1) COPD exacerbation Impression: Patient has been a life long smoker of cigarettes and has recently quit "a few weeks ago". She has since been prescribed a nicotine patch of 21mg. 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 She has required more frequent use of her short acting rescue inhaler and notes that after a while these were not helping. Patient does not wear home oxygen, but has needed it ever since presenting to the ED. Plan: IV steroids, IV antibiotic, nebs, RT therapy, and continuous oxygen. (2) Chronic sinusitis, unspecified Impression: Upon exam, patient had very full, dull bilateral irritated tympanic membranes with erythema noted in bilateral ear canals. Patient states that besides her increased breathing efforts, her second complaint is feeling full of fluid in her ears. Plan: Start Clindamycin IV, neomycin ear gtts, Flonase spray, and Afrin spray for 3 days. (3) Hypoxemia Impression: Patient was noted to have an increased respiratory rate in the 30-40's upon admission. She was also noted to be using all of her accessory muscles for breathing with increased anxiety. Patient denies home oxygen use. Patient has been continued on 2-4L nasal cannula with frequent spot checks. Plan: Oxygen supplementation, nebulizers, and pulmonary toileting. Respiratory culture ordered.
[2018-01-12] MEDS: ATORVASTATIN 40 MG TABLET PO SCH (20:28)
[2018-01-12] MEDS: TEMAZEPAM 15 MG CAPSULE PO PRN (20:28)
[2018-01-13] MEDS: CLINDAMYCIN IV 600 MG/50 ML IV SCH ×5 (00:05→23:47)
[2018-01-13] MEDS: guaiFENesin/CODEINE 5 ML UDC PO SCH ×5 (00:06→23:47)
[2018-01-13] MEDS: SODIUM CHLORIDE 0.9% 1,000 ML IV SCH ×3 (00:07→21:11)
[2018-01-13] MEDS: PIPERACILLIN/TAZOBACTAM 4.5 GM in SODIUM CHLORIDE 0.9% MINIBAG 100 ML IV SCH ×4 (00:29→17:02)
[2018-01-13 06:02] LABS: BASOPHILS % (AUTO) 0.1 %; HGB - HEMOGLOBIN 11.2 g/dL (12.0-16.0); MEAN PLATELET VOLUME 8.4 fL (7.9-10.8); WHITE BLOOD COUNT 12.5 x10^3/uL (4.8-10.8)
[2018-01-13 06:07] LABS: ALBUMIN 2.6 g/dL (3.2-5.5); ALBUMIN/GLOBULIN RATIO 0.9 (1.0-2.2); BILIRUBIN,TOTAL 0.3 mg/dL (0.2-1.0); CALCIUM 9.1 mg/dL (8.5-10.3); CREATININE 0.5 mg/dL (0.4-1.0); TOTAL PROTEIN 5.6 g/dL (6.7-8.2)
[2018-01-13 06:08] LABS: LYMPHOCYTES % (AUTO) 12.6 %; MEAN CORPUSCULAR HGB CONC 31.7 g/dL (32.0-36.0); MEAN CORPUSCULAR VOLUME 91.4 fL (81.0-99.0); MONOCYTES % (AUTO) 5.3 %; PLT - PLATELET COUNT 285 10^3/uL (130-450); RED BLOOD COUNT 3.87 10^6/uL (4.20-5.40)
[2018-01-13 06:10] LABS: ABNORMAL LYMPHS % (MANUAL) 0 %
[2018-01-13] MEDS: LORazepam 0.5 MG TABLET PO PRN ×2 (06:23→20:58)
[2018-01-13 06:28] LABS: BAND NEUTROPHILS % (MANUAL) 17 %; DIFFERENTIAL COMMENT MANUAL DIFFERENTIAL; LYMPHOCYTES # (MANUAL) 0.5 10^3/uL (1.5-3.5); LYMPHOCYTES % (MANUAL) 4 %; METAMYELOCYTES % (MANUAL) 1 %; MONOCYTES # (MANUAL) 0.9 10^3/uL (0.0-1.0); MYELOCYTES % (MANUAL) 1 %; NEUTROPHILS # (MANUAL) 10.9 10^3/uL (1.5-6.6); NEUTROPHILS % (MANUAL) 70 %; PLATELET ESTIMATE, MANUAL NORMAL (130-450,000) (NORMAL); RBC MORPHOLOGY (MULTIPLE) NORMAL APPEARANCE (NORMAL)
[2018-01-13] MEDS: MORPHINE SOL 10 MG/0.5 ML SYRINGE PO PRN ×2 (06:42→15:29)
[2018-01-13] MEDS: methylPREDNISolone SUCCINATE 125 MG/2 ML VIAL IVP SCH ×3 (06:46→21:17)
--- NOTE | 2018-01-13 07:28 | PROVIDER PROGRESS NOTE ---
Subjective - Prog Note Date Prog Note Date: 01/13/18 Prog Note Time: 07:28 - Subjective Pt reports feeling: Improved Subjective: Mirela was in much distress when I arrived for her exam this AM. She displayed increased respiratory efforts. She denies chest pain, N/V or changes in her cough. 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 She remains with a nicotine patch applied daily. Current Medications - Current Medications Current Medications: Active Medications Acetaminophen (Tylenol) 1,300 mg PO TID PRN PRN Reason: PAIN Last Admin: 01/12/18 07:59 Dose: 975 mg Acetaminophen (Tylenol) 1,000 mg PO TID PRN PRN Reason: PAIN Amlodipine Besylate (Norvasc) 5 mg PO DAILY [facility] Last Admin: 01/13/18 09:04 Dose: 5 mg Aspirin (Adalberto) 162.5 mg PO DAILY [facility] Last Admin: 01/13/18 09:04 Dose: 162.5 mg Atorvastatin Calcium (Lipitor) 40 mg PO QPM [facility] Last Admin: 01/12/18 20:28 Dose: 40 mg Benzonatate (Tessalon) 100 mg PO TID PRN PRN Reason: Cough Last Admin: 01/13/18 09:04 Dose: 100 mg Budesonide (Pulmicort) 0.5 mg INH RTBID [facility] Last Admin: 01/13/18 08:02 Dose: 0.5 mg Docusate Sodium (Colace 250mg Capsule) 250 - 500 mg PO DAILY [facility] Last Admin: 01/13/18 09:11 Dose: Not Given Enoxaparin Sodium (Lovenox) 40 mg SUBQ DAILY [facility] Last Admin: 01/13/18 09:04 Dose: 40 mg Famotidine (Pepcid) 20 mg PO DAILY [facility] Last Admin: 01/13/18 09:04 Dose: 20 mg Fluticasone Propionate (Flonase) 1 sprays STU DAILY [facility] Last Admin: 01/13/18 09:03 Dose: 1 spr Formoterol Fumarate (Perforomist) 20 mcg INH RTBID [facility] Last Admin: 01/13/18 08:02 Dose: 20 mcg Guaifenesin (Mucinex) 1,200 mg PO BID [facility] Last Admin: 01/13/18 09:04 Dose: 1,200 mg Guaifenesin/Codeine Phosphate (Robitussin Ac) 5 ml PO Q6HR [facility] Stop: 01/17/18 00:01 Last Admin: 01/13/18 12:14 Dose: 5 ml Sodium Chloride (Normal Saline 0.9%) 1,000 mls @ 100 mls/hr IV .Q10H [facility] Last Admin: 01/13/18 09:13 Dose: 100 mls/hr Piperacillin Sod/Tazobactam (Sod 4.5 gm/ Sodium Chloride) 100 mls @ 200 mls/hr IV Q6H [facility] Last Infusion: 01/13/18 13:42 Dose: Infused Clindamycin Phosphate (Cleocin 600 Mg/50 Ml) 50 mls @ 100 mls/hr IV Q6HR [facility] Last Infusion: 01/13/18 12:53 Dose: Infused Levalbuterol HCl (Xopenex) 1.25 mg INH Q4H PRN PRN Reason: Shortness of Air/Wheezing Last Admin: 01/13/18 15:10 Dose: 1.25 mg Lorazepam (Ativan) 0.5 mg PO Q6H PRN PRN Reason: Anxiety Last Admin: 01/13/18 06:23 Dose: 0.5 mg Methylprednisolone Sodium Succinate (Solu-Medrol (125mg Vial)) 60 mg IVP TID [facility] Last Admin: 01/13/18 14:56 Dose: 60 mg Morphine Sulfate (Roxanol) 5 mg PO Q2HR PRN PRN Reason: PAIN Last Admin: 01/13/18 15:29 Dose: 5 mg Neomycin/Polymyxin/Hydrocortisone (Cortisporin Otic Drops) 4 drops EACHEAR TID [facility] Last Admin: 01/13/18 14:55 Dose: 4 drops Nicotine (Nicoderm) 1 patch TOP DAILY [facility] Last Admin: 01/13/18 09:06 Dose: 1 patch Oxycodone HCl (Roxicodone) 5 mg PO Q4HR PRN PRN Reason: PAIN Last Admin: 01/13/18 09:18 Dose: 5 mg Oxymetazoline HCl (Afrin) 2 sprays STU BID [facility] Stop: 01/14/18 23:44 Last Admin: 01/13/18 09:03 Dose: 2 sprays Polyethylene Glycol (Miralax) 17 gm PO DAILY [facility] Last Admin: 01/13/18 09:06 Dose: 17 gm Saccharomyces Boulardii (Florastor) 500 mg PO BIDWM [facility] Last Admin: 01/13/18 12:23 Dose: 500 mg Sodium Chloride (Normal Saline Flush 0.9%) 10 ml IVP PRN PRN PRN Reason: NEEDED PER PROVIDER ORDERS Last Admin: 01/11/18 21:32 Dose: 10 ml Sodium Chloride (Normal Saline Flush 0.9%) 10 ml IVP Q8HR [facility] Last Admin: 01/13/18 13:56 Dose: Not Given Sodium Chloride ([place]) 2 sprays STU Q4HR PRN PRN Reason: Nasal Congestion Temazepam (Restoril) 15 mg PO QPM PRN PRN Reason: Insomnia Last Admin: 01/12/18 20:28 Dose: 15 mg Acetaminophen [Tylenol Arthritis] 1,300 mg PO TID PRN 01/11/18 Albuterol 2.5 mg INH Q4H PRN 01/11/18 Albuterol Sulfate [Proair Hfa Inhaler] 2 puffs INH Q4H PRN 01/11/18 Aspirin 162.5 mg PO DAILY 01/11/18 Atorvastatin Calcium 40 mg PO QPM 01/11/18 Benzonatate [Tessalon] 100 mg PO [id number] 01/11/18 Codeine Phosphate/Guaifenesin [Guaifen-Codeine 100-10 mg/5 ml] 5 ml PO [id number] 01/11/18 Ergocalciferol [Vitamin D2] 50,000 units PO Q7D 01/11/18 Fluticasone/Salmeterol [Advair 500-50 Diskus] 1 puffs INH BID 01/11/18 Lisinopril [Lisinopril] 40 mg PO DAILY 01/11/18 amLODIPine [Norvasc] 5 mg PO DAILY 01/11/18 predniSONE [Prednisone] 40 mg PO [id number] 01/11/18 Objective - Vital Signs/Intake & Output Reviewed Vital Signs: Yes Vital Signs: Vital Signs x48h Temp Pulse Resp BP Pulse Ox 01/13/18 00:15 36.5 C 71 18 151/71 H 96 Intake & Output: Intake & Output 01/10/18 01/11/18 01/12/18 01/13/18 23:59 23:59 23:59 23:59 Intake Total 352 3224.000 200 Output Total 500 100 Balance 352 2724.000 100 - Objective General Appearance: positive: Alert, Moderate distress, Anxious Eyes Bilateral: positive: Normal inspection Eyes: OU Conjunctivae pale ENT: positive: Pharyngeal erythema, Dry mucous membranes, Other (less purulent fluid noted behind bilateral tympanic membranes.) Neck: positive: Nml inspection, Thyroid nml, No JVD, Stiff neck Respiratory: positive: Chest non-tender, Wheezes, Rales, Rhonchi Cardiovascular: positive: Regular rate & rhythm, No gallop, Systolic murmur, Decreased pulse(s) Peripheral Pulses: 2+ Radial (R), 2+ Radial (L) Abdomen: positive: Non-tender, No organomegaly, Nml bowel sounds, No distention Back: positive: Nml inspection Skin: positive: No rash, Warm, Dry, Diaphoresis, Pallor Extremities: positive: Non-tender, Full ROM, Nml appearance, No pedal edema Neurologic/Psychiatric: positive: Oriented x3, CN's nml (2-12), Motor nml, Weakness, Depressed mood/affect Reflexes: Bicep (R): 3+, Bicep (L): 3+ - Lab Results Fish Bones: 01/13/18 05:10 01/13/18 05:10 Other Labs: Lab Results x24hrs 01/13/18 01/13/18 Range/Units 05:10 05:10 WBC 12.5 H (4.8-10.8) x10^3/uL RBC 3.87 L (4.20-5.40) 10^6/uL Hgb 11.2 L (12.0-16.0) g/dL Hct 35.4 L (37.0-47.0) % MCV 91.4 (81.0-99.0) fL MCH 29.0 (27.0-31.0) pg MCHC 31.7 L (32.0-36.0) g/dL RDW 14.0 (12.0-15.0) % Plt Count 285 (130-450) 10^3/uL MPV 8.4 (7.9-10.8) fL Neut # Not Reportable Lymph # Not Reportable [place] # Not Reportable Eos # Not Reportable Baso # Not Reportable Absolute Nucleated RBC Not Reportable Total Counted 100 Band Neuts % (Manual) 17 H (0 - 10) % Abnorm Lymph % (Manual) 0 % Metamyelocytes % 1 H ( - 0) % Myelocytes % 1 H ( - 0) % Nucleated RBC % Not Reportable Neutrophils # (Manual) 10.9 H (1.5-6.6) 10^3/uL Lymphocytes # (Manual) 0.5 L (1.5-3.5) 10^3/uL Monocytes # (Manual) 0.9 (0.0-1.0) 10^3/uL Eosinophils # (Manual) 0.0 (0-0.7) 10^3/uL Basophils # (Manual) 0.0 (0-0.1) 10^3/uL Differential Comment MANUAL DIFFERENTIAL Platelet Estimate NORMAL (130-450,000) (NORMAL) RBC Morph Micro Appear NORMAL APPEARANCE (NORMAL) Sodium 137 (135-145) mmol/L Potassium 4.7 (3.5-5.0) mmol/L Chloride 102 (101-111) mmol/L Carbon Dioxide 26 (21-32) mmol/L Anion Gap 9.0 (6-13) BUN 19 (6-20) mg/dL Creatinine 0.5 (0.4-1.0) mg/dL Estimated GFR (MDRD) 120 (>89) Glucose 131 H (70-100) mg/dL Calcium 9.1 (8.5-10.3) mg/dL Total Bilirubin 0.3 (0.2-1.0) mg/dL AST 24 (10-42) IU/L ALT 29 (10-60) IU/L Alkaline Phosphatase 80 (42-121) IU/L Total Protein 5.6 L (6.7-8.2) g/dL Albumin 2.6 L (3.2-5.5) g/dL Globulin 3.0 (2.1-4.2) g/dL Albumin/Globulin Ratio 0.9 L (1.0-2.2) - Diagnostic Imaging Diagnostic Imaging Results: positive: Final report reviewed Assessment/Plan - Problem List (1) COPD exacerbation Impression: Patient has been a life long smoker of cigarettes and has recently quit "a few weeks ago". She has since been prescribed a nicotine patch of 21mg. She now has moderate COPD with correction inhalers and albuterol. She has required more frequent use of her short acting rescue inhaler and notes that after a while these were not helping. Patient does not wear home oxygen, but has needed it ever since presenting to the ED. Patient has had a few rough breathing spells that becomes worse with anxiety. Patient remains on high-flow nasal cannula at 30-40%, warm humidification per RT. Flutter valve therapy initiated. Plan: High dose IV steroids, IV antibiotic, nebs, RT therapy, and continuous oxygen. (2) Chronic sinusitis, unspecified Impression: Upon exam, patient had very full, dull bilateral irritated tympanic membranes with erythema noted in bilateral ear canals. Patient states that besides her increased breathing efforts, her second complaint is feeling full of fluid in her ears. Today upon exam, there was much improvement noted to bilateral tympanic membranes, although bilateral ear canals still have erythema. Plan: Continue Clindamycin IV, neomycin ear gtts, Flonase spray, and Afrin spray for a 3 day course. Qualifiers: Sinusitis location: unspecified location Qualified Code(s): J32.9 - Chronic sinusitis, unspecified (3) Hypoxemia Impression: Patient was noted to have an increased respiratory rate in the 30-40's upon admission. She was also noted to be using all of her accessory muscles for breathing with increased anxiety. Patient denies home oxygen use. Patient was on 2-4L nasal cannula, but this morning needed a 15L non-rebreather mask for hypoxia and poor airway clearance. Patient is now on high-flow nasal cannula at 30-40% with frequent spot checks. She can have morphine to improve breathing efforts. Per RT, she is too weak today to start with her recommended acapela treatments. Plan: Oxygen supplementation, nebulizers, and pulmonary toileting. Respiratory culture ordered.
[2018-01-13] MEDS: SODIUM CHLORIDE FLUSH 0.9% 10 ML SYRINGE IVP SCH ×3 (07:54→21:17)
[2018-01-13] MEDS: BUDESONIDE 0.5 MG/2 ML NEB INH SCH ×2 (08:02→18:40)
[2018-01-13] MEDS: LEVALBUTEROL 1.25 MG/3 ML NEB INH PRN ×4 (08:02→18:40)
[2018-01-13] MEDS: FORMOTEROL FUMARATE NEB 20 MCG/2 ML INH SCH ×2 (08:02→18:40)
[2018-01-13] MEDS: NEOMYCIN/POLYMYX/HC OTIC DROPS EACHEAR SCH ×3 (09:02→21:13)
[2018-01-13] MEDS: OXYMETAZOLINE NASAL SPRAY NAS SCH ×2 (09:03→21:11)
[2018-01-13] MEDS: FLUTICASONE NASAL SPRAY NAS SCH (09:03)
[2018-01-13] MEDS: guaiFENesin 600 MG TABLET PO SCH ×2 (09:04→21:09)
[2018-01-13] MEDS: BENZONATATE 100 MG CAPSULE PO PRN ×2 (09:04→19:13)
[2018-01-13] MEDS: FAMOTIDINE 20 MG TABLET PO SCH (09:04)
[2018-01-13] MEDS: ENOXAPARIN 40 MG/0.4 ML SYRINGE SUBQ SCH (09:04)
[2018-01-13] MEDS: amLODIPine 5 MG TABLET PO SCH (09:04)
[2018-01-13] MEDS: ASPIRIN 325 MG TABLET PO SCH (09:04)
[2018-01-13] MEDS: POLYETHYLENE GLYCOL 3350 17 GM PACKET PO SCH (09:06)
[2018-01-13] MEDS: NICOTINE 21 MG PATCH TOP SCH (09:06)
[2018-01-13] MEDS: DOCUSATE SODIUM 250 MG CAPSULE PO SCH (09:11)
[2018-01-13] MEDS: oxyCODONE 5 MG TABLET PO PRN ×2 (09:18→19:13)
[2018-01-13 11:54] LABS: ABG HCO3 26.6 mmol/L (22.0-26.0); ABG PCO2 48 mmHg (34-45); ABG PH 7.36 (7.35-7.45); ABG PO2 72 mmHg (80-100)
[2018-01-13 11:55] LABS: ABG BASE EXCESS 0.7 mmol/L (-2.0-3.0); ABG OXYGEN SATURATION 94 % (94-98); ALLEN TEST POSITIVE
[2018-01-13] MEDS: SACCHAROMYCES BOULARDII 250 MG CAPSULE PO SCH ×2 (12:23→16:57)
[2018-01-13] MEDS ORDERED: BISACODYL 10 MG SUPP PR SCH (18:00)
[2018-01-13] MEDS: ATORVASTATIN 40 MG TABLET PO SCH (21:09)
[2018-01-14] MEDS: TEMAZEPAM 15 MG CAPSULE PO PRN (00:19)
[2018-01-14] MEDS: LEVALBUTEROL 1.25 MG/3 ML NEB INH PRN ×5 (00:21→19:30)
[2018-01-14] MEDS: PIPERACILLIN/TAZOBACTAM 4.5 GM in SODIUM CHLORIDE 0.9% MINIBAG 100 ML IV SCH ×4 (00:30→17:38)
[2018-01-14] MEDS: guaiFENesin/CODEINE 5 ML UDC PO SCH ×4 (05:03→23:53)
[2018-01-14] MEDS: LORazepam 0.5 MG TABLET PO PRN ×3 (05:03→18:21)
[2018-01-14] MEDS: CLINDAMYCIN IV 600 MG/50 ML IV SCH ×4 (05:03→23:53)
[2018-01-14] MEDS: SODIUM CHLORIDE 0.9% 1,000 ML IV SCH ×2 (05:07→16:25)
[2018-01-14] MEDS: methylPREDNISolone SUCCINATE 125 MG/2 ML VIAL IVP SCH ×3 (05:08→20:26)
[2018-01-14] MEDS: SODIUM CHLORIDE FLUSH 0.9% 10 ML SYRINGE IVP SCH ×3 (05:17→20:27)
[2018-01-14] MEDS: NEOMYCIN/POLYMYX/HC OTIC DROPS EACHEAR SCH ×3 (05:18→21:43)
[2018-01-14 05:32] LABS: BASOPHILS % (AUTO) 0.1 %; HGB - HEMOGLOBIN 11.8 g/dL (12.0-16.0); LYMPHOCYTES % (AUTO) 9.8 %; MEAN CORPUSCULAR HEMOGLOBIN 28.9 pg (27.0-31.0); MEAN CORPUSCULAR HGB CONC 31.7 g/dL (32.0-36.0); MEAN CORPUSCULAR VOLUME 91.2 fL (81.0-99.0); MONOCYTES % (AUTO) 4.2 %; NEUTROPHILS % (AUTO) 85.9 %; PLT - PLATELET COUNT 357 10^3/uL (130-450); RED BLOOD COUNT 4.07 10^6/uL (4.20-5.40); RED CELL DISTRIBUTION WIDTH 14.5 % (12.0-15.0); WHITE BLOOD COUNT 20.1 x10^3/uL (4.8-10.8)
[2018-01-14 05:34] LABS: ABNORMAL LYMPHS % (MANUAL) 0 %
[2018-01-14 05:41] LABS: ALBUMIN 2.9 g/dL (3.2-5.5); BILIRUBIN,TOTAL 0.2 mg/dL (0.2-1.0); CALCIUM 9.2 mg/dL (8.5-10.3); CREATININE 0.5 mg/dL (0.4-1.0); TOTAL PROTEIN 5.9 g/dL (6.7-8.2)
[2018-01-14 06:16] LABS: BAND NEUTROPHILS % (MANUAL) 3 %; DIFFERENTIAL COMMENT MANUAL DIFFERENTIAL; LYMPHOCYTES # (MANUAL) 2.4 10^3/uL (1.5-3.5); LYMPHOCYTES % (MANUAL) 12 %; METAMYELOCYTES % (MANUAL) 4 %; MYELOCYTES % (MANUAL) 4 %; NEUTROPHILS # (MANUAL) 15.1 10^3/uL (1.5-6.6); NEUTROPHILS % (MANUAL) 72 %; PLATELET ESTIMATE, MANUAL NORMAL (130-450,000) (NORMAL); RBC MORPHOLOGY (MULTIPLE) NORMAL APPEARANCE (NORMAL)
--- NOTE | 2018-01-14 07:13 | PROVIDER PROGRESS NOTE ---
Subjective - Prog Note Date Prog Note Date: 01/14/18 Prog Note Time: 07:13 - Subjective Pt reports feeling: Improved Subjective: Patient requests me to phone her daughter, which I did. She denies chest pain, N/V or an increased cough. Current Medications - Current Medications Current Medications: Active Medications Acetaminophen (Tylenol) 1,000 mg PO TID PRN PRN Reason: PAIN Amlodipine Besylate (Norvasc) 10 mg PO DAILY [facility] Aspirin (Adalberto) 162.5 mg PO DAILY [facility] Last Admin: 01/14/18 08:26 Dose: 162.5 mg Atorvastatin Calcium (Lipitor) 40 mg PO QPM [facility] Last Admin: 01/13/18 21:09 Dose: 40 mg Benzonatate (Tessalon) 100 mg PO TID PRN PRN Reason: Cough Last Admin: 01/14/18 07:44 Dose: 100 mg Budesonide (Pulmicort) 0.5 mg INH RTBID [facility] Last Admin: 01/14/18 07:47 Dose: 0.5 mg Docusate Sodium (Colace 250mg Capsule) 250 - 500 mg PO DAILY [facility] Last Admin: 01/14/18 08:21 Dose: 250 mg Enoxaparin Sodium (Lovenox) 40 mg SUBQ DAILY [facility] Last Admin: 01/14/18 08:24 Dose: 40 mg Famotidine (Pepcid) 20 mg PO DAILY [facility] Last Admin: 01/14/18 08:23 Dose: 20 mg Fluticasone Propionate (Flonase) 1 sprays STU DAILY [facility] Last Admin: 01/14/18 08:29 Dose: 1 spr Formoterol Fumarate (Perforomist) 20 mcg INH RTBID [facility] Last Admin: 01/14/18 07:47 Dose: 20 mcg Guaifenesin (Mucinex) 1,200 mg PO BID [facility] Last Admin: 01/14/18 08:22 Dose: 1,200 mg Guaifenesin/Codeine Phosphate (Robitussin Ac) 5 ml PO Q6HR [facility] Stop: 01/17/18 00:01 Last Admin: 01/14/18 17:38 Dose: 5 ml Sodium Chloride (Normal Saline 0.9%) 1,000 mls @ 100 mls/hr IV .Q10H [facility] Last Admin: 01/14/18 16:25 Dose: 100 mls/hr Piperacillin Sod/Tazobactam (Sod 4.5 gm/ Sodium Chloride) 100 mls @ 200 mls/hr IV Q6H [facility] Last Infusion: 01/14/18 18:12 Dose: Infused Clindamycin Phosphate (Cleocin 600 Mg/50 Ml) 50 mls @ 100 mls/hr IV Q6HR [facility] Last Admin: 01/14/18 18:10 Dose: 100 mls/hr Levalbuterol HCl (Xopenex) 1.25 mg INH Q4H PRN PRN Reason: Shortness of Air/Wheezing Last Admin: 01/14/18 16:09 Dose: 1.25 mg Lorazepam (Ativan) 0.5 mg PO Q6H PRN PRN Reason: Anxiety Last Admin: 01/14/18 18:21 Dose: 0.5 mg Methylprednisolone Sodium Succinate (Solu-Medrol (125mg Vial)) 40 mg IVP BID [facility] Morphine Sulfate (Roxanol) 5 mg PO Q2HR PRN PRN Reason: PAIN Last Admin: 01/14/18 12:14 Dose: 5 mg Neomycin/Polymyxin/Hydrocortisone (Cortisporin Otic Drops) 4 drops EACHEAR TID [facility] Last Admin: 01/14/18 14:02 Dose: 4 drops Nicotine (Nicoderm) 1 patch TOP DAILY [facility] Last Admin: 01/14/18 18:53 Dose: 1 patch Oxycodone HCl (Roxicodone) 5 mg PO Q4HR PRN PRN Reason: PAIN Last Admin: 01/13/18 19:13 Dose: 5 mg Oxymetazoline HCl (Afrin) 2 sprays STU BID [facility] Stop: 01/14/18 23:44 Last Admin: 01/14/18 08:28 Dose: 2 sprays Polyethylene Glycol (Miralax) 17 gm PO DAILY [facility] Last Admin: 01/14/18 08:25 Dose: 17 gm Saccharomyces Boulardii (Florastor) 500 mg PO BIDWM [facility] Last Admin: 01/14/18 18:21 Dose: 500 mg Sertraline HCl (Zoloft) 25 mg PO DAILY [facility] Last Admin: 01/14/18 18:53 Dose: 25 mg Sodium Chloride (Normal Saline Flush 0.9%) 10 ml IVP PRN PRN PRN Reason: NEEDED PER PROVIDER ORDERS Last Admin: 01/11/18 21:32 Dose: 10 ml Sodium Chloride (Normal Saline Flush 0.9%) 10 ml IVP Q8HR [facility] Last Admin: 01/14/18 13:17 Dose: Not Given Sodium Chloride ([place]) 2 sprays STU BID [facility] Temazepam (Restoril) 15 mg PO QPM PRN PRN Reason: Insomnia Last Admin: 01/14/18 00:19 Dose: 15 mg Acetaminophen [Tylenol Arthritis] 1,300 mg PO TID PRN 01/11/18 Albuterol 2.5 mg INH Q4H PRN 01/11/18 Albuterol Sulfate [Proair Hfa Inhaler] 2 puffs INH Q4H PRN 01/11/18 Aspirin 162.5 mg PO DAILY 01/11/18 Atorvastatin Calcium 40 mg PO QPM 01/11/18 Benzonatate [Tessalon] 100 mg PO [id number] 01/11/18 Codeine Phosphate/Guaifenesin [Guaifen-Codeine 100-10 mg/5 ml] 5 ml PO [id number] 01/11/18 Ergocalciferol [Vitamin D2] 50,000 units PO Q7D 01/11/18 Fluticasone/Salmeterol [Advair 500-50 Diskus] 1 puffs INH BID 01/11/18 Lisinopril [Lisinopril] 40 mg PO DAILY 01/11/18 amLODIPine [Norvasc] 5 mg PO DAILY 01/11/18 predniSONE [Prednisone] 40 mg PO [id number] 01/11/18 Objective - Vital Signs/Intake & Output Reviewed Vital Signs: Yes Vital Signs: Vital Signs x48h Temp Pulse Pulse Resp BP Pulse Ox 01/14/18 00:21 84 22 01/13/18 23:50 36.6 C 77 18 171/84 H 95 Intake & Output: Intake & Output 01/11/18 01/12/18 01/13/18 01/14/18 23:59 23:59 23:59 23:59 Intake Total 352 3224.000 3330 875.000 Output Total 500 500 Balance 352 2724.000 2830 875.000 - Objective General Appearance: positive: Alert, Moderate distress, Anxious, Lethargic Eyes Bilateral: positive: Normal inspection Eyes: OU Conjunctivae pale ENT: positive: ENT inspection nml, Pharynx nml, Purulent nasal drainage, Pharyngeal erythema, Dry mucous membranes Neck: positive: Nml inspection, Thyroid nml, No JVD, Trachea midline, Lymphadenopathy (R), Lymphadenopathy (L), Stiff neck, Swelling/bruising Respiratory: positive: Chest non-tender, Wheezes, Rhonchi Cardiovascular: positive: Regular rate & rhythm, No murmur, No gallop, Decreased pulse(s) Peripheral Pulses: 1+ Radial (R), 1+ Radial (L) Abdomen: positive: Non-tender, No organomegaly, Nml bowel sounds, No distention Back: positive: Nml inspection Skin: positive: No rash, Warm, Dry Extremities: positive: Non-tender, Full ROM, Nml appearance, No pedal edema Neurologic/Psychiatric: positive: Oriented x3, CN's nml (2-12), Motor nml, Sensation nml, Depressed mood/affect Reflexes: Bicep (R): 2+, Bicep (L): 2+ - Lab Results Fish Bones: 01/14/18 05:10 01/14/18 05:10 Other Labs: Lab Results x24hrs 01/14/18 01/14/18 01/13/18 Range/Units 05:10 05:10 11:44 WBC 20.1 H (4.8-10.8) x10^3/uL RBC 4.07 L (4.20-5.40) 10^6/uL Hgb 11.8 L (12.0-16.0) g/dL Hct 37.1 (37.0-47.0) % MCV 91.2 (81.0-99.0) fL MCH 28.9 (27.0-31.0) pg MCHC 31.7 L (32.0-36.0) g/dL RDW 14.5 (12.0-15.0) % Plt Count 357 (130-450) 10^3/uL MPV 8.0 (7.9-10.8) fL Neut # Not Reportable Lymph # Not Reportable [place] # Not Reportable Eos # Not Reportable Baso # Not Reportable Absolute Nucleated RBC Not Reportable Total Counted 100 Band Neuts % (Manual) 3 (0 - 10) % Abnorm Lymph % (Manual) 0 % Metamyelocytes % 4 H ( - 0) % Myelocytes % 4 H ( - 0) % Nucleated RBC % Not Reportable Neutrophils # (Manual) 15.1 H (1.5-6.6) 10^3/uL Lymphocytes # (Manual) 2.4 (1.5-3.5) 10^3/uL Monocytes # (Manual) 1.0 (0.0-1.0) 10^3/uL Eosinophils # (Manual) 0.0 (0-0.7) 10^3/uL Basophils # (Manual) 0.0 (0-0.1) 10^3/uL Differential Comment MANUAL DIFFERENTIAL Platelet Estimate NORMAL (130-450,000) (NORMAL) RBC Morph Micro Appear NORMAL APPEARANCE (NORMAL) Bld Gas Analysis Time 1152 Sample Site RIGHT RADIAL ABG pH 7.36 (7.35-7.45) ABG pCO2 48 H (34-45) mmHg ABG pO2 72 L (80-100) mmHg ABG HCO3 26.6 H (22.0-26.0) mmol/L ABG Total CO2 28.0 (21.0-29.0) MMOL/L ABG O2 Saturation 94 (94-98) % ABG Base Excess 0.7 (-2.0-3.0) mmol/L Jesse Test POSITIVE O2 Delivery Device [facility] O2 Liters/Min 30.00 LPM FiO2 40.00 Sodium 140 (135-145) mmol/L Potassium 4.0 (3.5-5.0) mmol/L Chloride 102 (101-111) mmol/L Carbon Dioxide 27 (21-32) mmol/L Anion Gap 11.0 (6-13) BUN 13 (6-20) mg/dL Creatinine 0.5 (0.4-1.0) mg/dL Estimated GFR (MDRD) 120 (>89) Glucose 121 H (70-100) mg/dL Calcium 9.2 (8.5-10.3) mg/dL Total Bilirubin 0.2 (0.2-1.0) mg/dL AST 22 (10-42) IU/L ALT 29 (10-60) IU/L Alkaline Phosphatase 79 (42-121) IU/L Total Protein 5.9 L (6.7-8.2) g/dL Albumin 2.9 L (3.2-5.5) g/dL Globulin 3.0 (2.1-4.2) g/dL Albumin/Globulin Ratio 1.0 (1.0-2.2) - Diagnostic Imaging Diagnostic Imaging Results: positive: Final report reviewed Assessment/Plan - Problem List (1) COPD exacerbation Impression: Patient has been a life long smoker of cigarettes and has recently quit ( between 1-2 weeks ago). She has since been prescribed a nicotine patch of 21mg. She now has moderate COPD with rn long term care inhalers and albuterol. She has required more frequent use of her short acting rescue inhaler and notes that after a while these were not helping. Patient does not wear home oxygen, but has needed it ever since presenting to the ED. Patient has had a few rough breathing spells that becomes worse with anxiety. Patient remains on high-flow nasal cannula at 30-40%, warm humidification per RT. Flutter valve therapy initiated. Plan: High dose IV steroids, IV antibiotic, nebs, RT therapy, and continuous oxygen. Will prescribe LABA and a rescue inhaler for long-term treatment at home at the time of discharge. (2) Chronic sinusitis, unspecified Impression: Upon exam, patient had very full, dull bilateral irritated tympanic membranes with erythema noted in bilateral ear canals that continue to improve each day. Patient states that besides her increased breathing efforts, her second complaint is feeling full of fluid in her ears. Plan: Continue Clindamycin IV, neomycin ear gtts, Flonase spray, and Afrin spray for a 3 day course and today is the final day for the Afrin. Qualifiers: Sinusitis location: unspecified location Qualified Code(s): J32.9 - Chronic sinusitis, unspecified (3) Hypoxemia Impression: Patient was noted to have an increased respiratory rate in the 30-40's upon admission. She was also noted to be using all of her accessory muscles for breathing with increased anxiety. Patient denies home oxygen use. Patient was on 2-4L nasal cannula, but this morning needed a 15L non-rebreather mask for hypoxia and poor airway clearance. Patient is now on high-flow nasal cannula at 30-40% with frequent spot checks. She can have morphine to improve breathing efforts. Plan: Oxygen supplementation, nebulizers, and pulmonary toileting. Respiratory culture ordered. (4) Depression Impression: Patient has been tearful since the time of admission, but more so today. Patient has been counseled about starting an antidepressant in light of a recent lung nodule discovery. Plan: Sertraline PO at a low dose will be started this evening. Qualifiers: Depression Type: reactive depression Qualified Code(s): F32.9 - Major depressive disorder, single episode, unspecified (5) Lung nodules Impression: A chest CT was completed at the time of admission and shows: Spiculated left superior segment lower lobe pulmonary nodule concerning for primary lung malignancy and further workup is recommended. This was relayed to patient and she is interested in prompt follow up. Patient has required supplemental oxygen since the time of admission. Plan: Continue to treat acute illness and patient may need supplemental oxygen for home use.
[2018-01-14] MEDS: BENZONATATE 100 MG CAPSULE PO PRN ×2 (07:44→20:27)
[2018-01-14] MEDS: FORMOTEROL FUMARATE NEB 20 MCG/2 ML INH SCH ×2 (07:47→19:30)
[2018-01-14] MEDS: BUDESONIDE 0.5 MG/2 ML NEB INH SCH ×2 (07:47→19:30)
[2018-01-14] MEDS: SACCHAROMYCES BOULARDII 250 MG CAPSULE PO SCH ×2 (08:21→18:21)
[2018-01-14] MEDS: DOCUSATE SODIUM 250 MG CAPSULE PO SCH (08:21)
[2018-01-14] MEDS: guaiFENesin 600 MG TABLET PO SCH ×2 (08:22→20:25)
[2018-01-14] MEDS: amLODIPine 5 MG TABLET PO SCH (08:22)
[2018-01-14] MEDS: FAMOTIDINE 20 MG TABLET PO SCH (08:23)
[2018-01-14] MEDS: ENOXAPARIN 40 MG/0.4 ML SYRINGE SUBQ SCH (08:24)
[2018-01-14] MEDS: POLYETHYLENE GLYCOL 3350 17 GM PACKET PO SCH (08:25)
[2018-01-14] MEDS: ASPIRIN 325 MG TABLET PO SCH (08:26)
[2018-01-14] MEDS: NICOTINE 21 MG PATCH TOP SCH (08:26)
[2018-01-14] MEDS: MORPHINE SOL 10 MG/0.5 ML SYRINGE PO PRN ×3 (08:27→21:42)
[2018-01-14] MEDS: OXYMETAZOLINE NASAL SPRAY NAS SCH ×2 (08:28→20:23)
[2018-01-14] MEDS: FLUTICASONE NASAL SPRAY NAS SCH (08:29)
[2018-01-14] MEDS ORDERED: amLODIPine 5 MG TABLET PO SCH (14:58)
[2018-01-14] MEDS: NICOTINE 7 MG PATCH TOP SCH (18:53)
[2018-01-14] MEDS: SERTRALINE 25 MG TABLET PO SCH (18:53)
[2018-01-14] MEDS: SODIUM CHLORIDE 0.65% NASAL SPRAY NAS SCH (20:24)
[2018-01-14] MEDS: ATORVASTATIN 40 MG TABLET PO SCH (20:25)
[2018-01-15] MEDS: PIPERACILLIN/TAZOBACTAM 4.5 GM in SODIUM CHLORIDE 0.9% MINIBAG 100 ML IV SCH ×4 (00:29→17:31)
[2018-01-15] MEDS: SODIUM CHLORIDE 0.9% 1,000 ML IV SCH ×3 (03:23→14:28)
[2018-01-15] MEDS: LORazepam 0.5 MG TABLET PO PRN ×2 (03:58→18:25)
[2018-01-15] MEDS: BENZONATATE 100 MG CAPSULE PO PRN (03:58)
[2018-01-15] MEDS: CLINDAMYCIN IV 600 MG/50 ML IV SCH ×4 (05:36→23:45)
[2018-01-15] MEDS: guaiFENesin/CODEINE 5 ML UDC PO SCH ×4 (05:37→23:45)
[2018-01-15] MEDS: SODIUM CHLORIDE FLUSH 0.9% 10 ML SYRINGE IVP SCH ×3 (05:38→20:31)
[2018-01-15] MEDS: NEOMYCIN/POLYMYX/HC OTIC DROPS EACHEAR SCH ×2 (05:44→13:17)
[2018-01-15] MEDS: BUDESONIDE 0.5 MG/2 ML NEB INH SCH ×2 (07:00→19:45)
[2018-01-15] MEDS: FORMOTEROL FUMARATE NEB 20 MCG/2 ML INH SCH ×2 (07:00→19:45)
[2018-01-15] MEDS: amLODIPine 5 MG TABLET PO SCH (09:30)
[2018-01-15] MEDS: FAMOTIDINE 20 MG TABLET PO SCH (09:30)
[2018-01-15] MEDS: SERTRALINE 25 MG TABLET PO SCH (09:30)
[2018-01-15] MEDS: DOCUSATE SODIUM 250 MG CAPSULE PO SCH (09:30)
[2018-01-15] MEDS: SACCHAROMYCES BOULARDII 250 MG CAPSULE PO SCH ×2 (09:30→16:58)
[2018-01-15] MEDS: ASPIRIN 325 MG TABLET PO SCH (09:31)
[2018-01-15] MEDS: ENOXAPARIN 40 MG/0.4 ML SYRINGE SUBQ SCH (09:32)
[2018-01-15] MEDS: NICOTINE 7 MG PATCH TOP SCH (09:32)
[2018-01-15] MEDS: POLYETHYLENE GLYCOL 3350 17 GM PACKET PO SCH (09:32)
[2018-01-15] MEDS: FLUTICASONE NASAL SPRAY NAS SCH (09:38)
[2018-01-15] MEDS: guaiFENesin 600 MG TABLET PO SCH ×2 (09:44→20:27)
[2018-01-15] MEDS: methylPREDNISolone SUCCINATE 125 MG/2 ML VIAL IVP SCH ×2 (09:55→20:31)
[2018-01-15] MEDS: SODIUM CHLORIDE 0.65% NASAL SPRAY NAS SCH ×2 (09:58→20:31)
--- NOTE | 2018-01-15 15:50 | PROVIDER PROGRESS NOTE ---
Subjective - Prog Note Date Prog Note Date: 01/15/18 Prog Note Time: 15:50 - Subjective Pt reports feeling: Improved Subjective: Mirela has no complaints and notes that her breathing efforts have improved. She denies increased SOB, chest pain, N/V or a new cough. Patient's daughter, Bhavna called and updated. Current Medications - Current Medications Current Medications: Active Medications Acetaminophen (Tylenol) 1,000 mg PO TID PRN PRN Reason: PAIN Amlodipine Besylate (Norvasc) 10 mg PO DAILY [facility] Last Admin: 01/15/18 09:30 Dose: 10 mg Aspirin (Adalberto) 162.5 mg PO DAILY [facility] Last Admin: 01/15/18 09:31 Dose: 162.5 mg Atorvastatin Calcium (Lipitor) 40 mg PO QPM [facility] Last Admin: 01/14/18 20:25 Dose: 40 mg Benzonatate (Tessalon) 100 mg PO TID PRN PRN Reason: Cough Last Admin: 01/15/18 03:58 Dose: 100 mg Budesonide (Pulmicort) 0.5 mg INH RTBID [facility] Last Admin: 01/14/18 19:30 Dose: 0.5 mg Docusate Sodium (Colace 250mg Capsule) 250 - 500 mg PO DAILY [facility] Last Admin: 01/15/18 09:30 Dose: 250 mg Enoxaparin Sodium (Lovenox) 40 mg SUBQ DAILY [facility] Last Admin: 01/15/18 09:32 Dose: 40 mg Famotidine (Pepcid) 20 mg PO DAILY [facility] Last Admin: 01/15/18 09:30 Dose: 20 mg Fluticasone Propionate (Flonase) 1 sprays STU DAILY [facility] Last Admin: 01/15/18 09:38 Dose: 1 spr Formoterol Fumarate (Perforomist) 20 mcg INH RTBID [facility] Last Admin: 01/14/18 19:30 Dose: 20 mcg Guaifenesin (Mucinex) 1,200 mg PO BID [facility] Last Admin: 01/15/18 09:44 Dose: 1,200 mg Guaifenesin/Codeine Phosphate (Robitussin Ac) 5 ml PO Q6HR [facility] Stop: 01/17/18 00:01 Last Admin: 01/15/18 11:47 Dose: 5 ml Sodium Chloride (Normal Saline 0.9%) 1,000 mls @ 100 mls/hr IV .Q10H [facility] Last Admin: 01/15/18 14:28 Dose: 100 mls/hr Piperacillin Sod/Tazobactam (Sod 4.5 gm/ Sodium Chloride) 100 mls @ 200 mls/hr IV Q6H [facility] Last Infusion: 01/15/18 12:43 Dose: Infused Clindamycin Phosphate (Cleocin 600 Mg/50 Ml) 50 mls @ 100 mls/hr IV Q6HR [facility] Last Infusion: 01/15/18 12:43 Dose: Infused Levalbuterol HCl (Xopenex) 1.25 mg INH Q4H PRN PRN Reason: Shortness of Air/Wheezing Last Admin: 01/14/18 19:30 Dose: 1.25 mg Lisinopril (Zestril) 40 mg PO DAILY [facility] Lorazepam (Ativan) 0.5 mg PO Q6H PRN PRN Reason: Anxiety Last Admin: 01/15/18 03:58 Dose: 0.5 mg Methylprednisolone Sodium Succinate (Solu-Medrol (125mg Vial)) 40 mg IVP BID [facility] Last Admin: 01/15/18 09:55 Dose: 40 mg Morphine Sulfate (Roxanol) 5 mg PO Q2HR PRN PRN Reason: PAIN Last Admin: 01/14/18 21:42 Dose: 5 mg Neomycin/Polymyxin/Hydrocortisone (Cortisporin Otic Drops) 4 drops EACHEAR TID [facility] Last Admin: 01/15/18 13:17 Dose: 4 drops Nicotine (Nicoderm) 1 patch TOP DAILY [facility] Last Admin: 01/15/18 09:32 Dose: 1 patch Oxycodone HCl (Roxicodone) 5 mg PO Q4HR PRN PRN Reason: PAIN Last Admin: 01/13/18 19:13 Dose: 5 mg Polyethylene Glycol (Miralax) 17 gm PO DAILY [facility] Last Admin: 01/15/18 09:32 Dose: Not Given Saccharomyces Boulardii (Florastor) 500 mg PO BIDWM [facility] Last Admin: 01/15/18 09:30 Dose: 500 mg Sertraline HCl (Zoloft) 25 mg PO DAILY [facility] Last Admin: 01/15/18 09:30 Dose: 25 mg Sodium Chloride (Normal Saline Flush 0.9%) 10 ml IVP PRN PRN PRN Reason: NEEDED PER PROVIDER ORDERS Last Admin: 01/11/18 21:32 Dose: 10 ml Sodium Chloride (Normal Saline Flush 0.9%) 10 ml IVP Q8HR [facility] Last Admin: 01/15/18 12:50 Dose: Not Given Sodium Chloride ([place]) 2 sprays STU BID [facility] Last Admin: 01/15/18 09:58 Dose: 2 spray Temazepam (Restoril) 15 mg PO QPM PRN PRN Reason: Insomnia Last Admin: 01/14/18 00:19 Dose: 15 mg Acetaminophen [Tylenol Arthritis] 1,300 mg PO TID PRN 01/11/18 Albuterol 2.5 mg INH Q4H PRN 01/11/18 Albuterol Sulfate [Proair Hfa Inhaler] 2 puffs INH Q4H PRN 01/11/18 Aspirin 162.5 mg PO DAILY 01/11/18 Atorvastatin Calcium 40 mg PO QPM 01/11/18 Benzonatate [Tessalon] 100 mg PO [id number] 01/11/18 Codeine Phosphate/Guaifenesin [Guaifen-Codeine 100-10 mg/5 ml] 5 ml PO [id number] 01/11/18 Ergocalciferol [Vitamin D2] 50,000 units PO Q7D 01/11/18 Fluticasone/Salmeterol [Advair 500-50 Diskus] 1 puffs INH BID 01/11/18 Lisinopril [Lisinopril] 40 mg PO DAILY 01/11/18 amLODIPine [Norvasc] 5 mg PO DAILY 01/11/18 predniSONE [Prednisone] 40 mg PO [id number] 01/11/18 Objective - Vital Signs/Intake & Output Reviewed Vital Signs: Yes Intake & Output: Intake & Output 01/12/18 01/13/18 01/14/18 01/15/18 23:59 23:59 23:59 23:59 Intake Total 3224.000 3330 3121.667 4180 Output Total 500 500 302 Balance 2724.000 2830 3121.667 3878 - Objective General Appearance: positive: No acute distress, Alert, Anxious Eyes Bilateral: positive: Normal inspection, PERRL ENT: positive: ENT inspection nml, Pharynx nml, Dry mucous membranes Neck: positive: Nml inspection, Thyroid nml, No JVD Respiratory: positive: Chest non-tender, No respiratory distress, Breath sounds nml, Wheezes, Other (coarse crackles bilaterally.) Cardiovascular: positive: Regular rate & rhythm, No murmur, No gallop, Decreased pulse(s) Peripheral Pulses: 1+ Radial (R), 1+ Radial (L) Abdomen: positive: Non-tender, No organomegaly, Nml bowel sounds, No distention Back: positive: Nml inspection Skin: positive: No rash, Warm, Dry Extremities: positive: Non-tender, Full ROM, Nml appearance Neurologic/Psychiatric: positive: Oriented x3, CN's nml (2-12), Motor nml, Sensation nml, Depressed mood/affect Reflexes: Bicep (R): 3+, Bicep (L): 3+ - Lab Results Fish Bones: 01/14/18 05:10 01/14/18 05:10 - Diagnostic Imaging Diagnostic Imaging Results: positive: Final report reviewed Assessment/Plan - Problem List (1) COPD exacerbation Impression: Patient has been a life long smoker of cigarettes and has recently quit ( between 1-2 weeks ago). She has since been prescribed a nicotine patch of 21mg. 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 She has required more frequent use of her short acting rescue inhaler and notes that after a while these were not helping. Patient does not wear home oxygen, but has needed it ever since presenting to the ED. Patient has had a few rough breathing spells that becomes worse with anxiety. Patient remains on high-flow nasal cannula at 30-40%, warm humidification per RT. Flutter valve therapy initiated. Plan: High dose IV steroids, IV antibiotic, nebs, RT therapy, and continuous oxygen. (2) Chronic sinusitis, unspecified Impression: Upon exam, patient had very full, dull bilateral irritated tympanic membranes with erythema noted in bilateral ear canals that continue to improve each day. Patient states that besides her increased breathing efforts, her second complaint is feeling full of fluid in her ears. Plan: Continue Clindamycin IV, neomycin ear gtts, Flonase spray, and Afrin spray was prescribed for 3 days. Qualifiers: Sinusitis location: unspecified location Qualified Code(s): J32.9 - Chronic sinusitis, unspecified (3) Hypoxemia Impression: Patient was noted to have an increased respiratory rate in the 30-40's upon admission. She was also noted to be using all of her accessory muscles for breathing with increased anxiety. Patient denies home oxygen use. Patient was on 2-4L nasal cannula, but this morning needed a 15L non-rebreather mask for hypoxia and poor airway clearance. Patient is now on high-flow nasal cannula at 30-40% with frequent spot checks. She can have morphine to improve breathing efforts. Plan: Oxygen supplementation, nebulizers, and pulmonary toileting. Respiratory culture ordered. (4) Depression Impression: Patient has been tearful since the time of admission, but more so today. Patient has been counseled about starting an antidepressant in light of a recent lung nodule discovery. Plan: Sertraline PO at a low dose will be started this evening. Qualifiers: Depression Type: reactive depression Qualified Code(s): F32.9 - Major depressive disorder, single episode, unspecified (5) Lung nodules Impression: A chest CT was completed at the time of admission and shows: Spiculated left superior segment lower lobe pulmonary nodule concerning for primary lung malignancy and further workup is recommended. This was relayed to patient and she is interested in prompt follow up. Patient has required supplemental oxygen since the time of admission. Plan: Continue to treat acute illness and patient may need supplemental oxygen for home use.
[2018-01-15] MEDS: LEVALBUTEROL 1.25 MG/3 ML NEB INH PRN (18:20)
[2018-01-15] MEDS: ATORVASTATIN 40 MG TABLET PO SCH (20:31)
[2018-01-15] MEDS: MORPHINE SOL 10 MG/0.5 ML SYRINGE PO PRN (21:55)
[2018-01-16] MEDS: PIPERACILLIN/TAZOBACTAM 4.5 GM in SODIUM CHLORIDE 0.9% MINIBAG 100 ML IV SCH ×4 (00:21→17:03)
[2018-01-16] MEDS: LORazepam 0.5 MG TABLET PO PRN ×3 (00:21→16:55)
[2018-01-16] MEDS: SODIUM CHLORIDE 0.9% 1,000 ML IV SCH (02:48)
[2018-01-16] MEDS: LEVALBUTEROL 1.25 MG/3 ML NEB INH PRN ×4 (04:20→23:40)
[2018-01-16] MEDS: BENZONATATE 100 MG CAPSULE PO PRN ×2 (04:46→08:40)
[2018-01-16] MEDS: CLINDAMYCIN IV 600 MG/50 ML IV SCH ×3 (05:53→17:03)
[2018-01-16] MEDS: guaiFENesin/CODEINE 5 ML UDC PO SCH ×4 (05:53→23:59)
[2018-01-16] MEDS: SODIUM CHLORIDE FLUSH 0.9% 10 ML SYRINGE IVP SCH ×3 (06:28→20:33)
[2018-01-16] MEDS: FORMOTEROL FUMARATE NEB 20 MCG/2 ML INH SCH ×2 (07:50→19:00)
[2018-01-16] MEDS: BUDESONIDE 0.5 MG/2 ML NEB INH SCH ×2 (07:50→19:00)
[2018-01-16] MEDS: guaiFENesin 600 MG TABLET PO SCH ×3 (08:19→21:25)
[2018-01-16] MEDS: amLODIPine 5 MG TABLET PO SCH (08:19)
[2018-01-16] MEDS: NICOTINE 7 MG PATCH TOP SCH (08:19)
[2018-01-16] MEDS: LISINOPRIL 20 MG TABLET PO SCH (08:19)
[2018-01-16] MEDS: SACCHAROMYCES BOULARDII 250 MG CAPSULE PO SCH ×2 (08:20→16:55)
[2018-01-16] MEDS: ENOXAPARIN 40 MG/0.4 ML SYRINGE SUBQ SCH (08:20)
[2018-01-16] MEDS: methylPREDNISolone SUCCINATE 125 MG/2 ML VIAL IVP SCH ×2 (08:20→20:32)
[2018-01-16] MEDS: ASPIRIN 325 MG TABLET PO SCH (08:20)
[2018-01-16] MEDS: FAMOTIDINE 20 MG TABLET PO SCH (08:20)
[2018-01-16] MEDS: DOCUSATE SODIUM 250 MG CAPSULE PO SCH (08:20)
[2018-01-16] MEDS: FLUTICASONE NASAL SPRAY NAS SCH (08:21)
[2018-01-16] MEDS: POLYETHYLENE GLYCOL 3350 17 GM PACKET PO SCH (08:21)
[2018-01-16] MEDS: SERTRALINE 25 MG TABLET PO SCH (08:21)
[2018-01-16] MEDS: SODIUM CHLORIDE 0.65% NASAL SPRAY NAS SCH ×2 (08:21→20:33)
[2018-01-16] MEDS: oxyCODONE 5 MG TABLET PO PRN ×3 (08:40→20:33)
--- NOTE | 2018-01-16 15:06 | PROVIDER PROGRESS NOTE ---
Subjective - Prog Note Date Prog Note Date: 01/16/18 Prog Note Time: 15:06 - Subjective Pt reports feeling: Improved Subjective: Patient is looking forward to returning home tomorrow, but requests home oxygen. She denies SOB, chest pain, N/V or an increased cough. Current Medications - Current Medications Current Medications: Active Medications Acetaminophen (Tylenol) 1,000 mg PO TID PRN PRN Reason: PAIN Amlodipine Besylate (Norvasc) 10 mg PO DAILY [facility] Last Admin: 01/16/18 08:19 Dose: 10 mg Aspirin (Adalberto) 162.5 mg PO DAILY [facility] Last Admin: 01/16/18 08:20 Dose: 162.5 mg Atorvastatin Calcium (Lipitor) 40 mg PO QPM [facility] Last Admin: 01/16/18 20:32 Dose: 40 mg Benzonatate (Tessalon) 100 mg PO TID PRN PRN Reason: Cough Last Admin: 01/17/18 05:57 Dose: 100 mg Budesonide (Pulmicort) 0.5 mg INH RTBID [facility] Last Admin: 01/17/18 07:21 Dose: 0.5 mg Clindamycin HCl (Cleocin) 300 mg PO BID [facility] Docusate Sodium (Colace 250mg Capsule) 250 - 500 mg PO DAILY [facility] Last Admin: 01/16/18 08:20 Dose: 250 mg Enoxaparin Sodium (Lovenox) 40 mg SUBQ DAILY [facility] Last Admin: 01/16/18 08:20 Dose: 40 mg Famotidine (Pepcid) 20 mg PO DAILY [facility] Last Admin: 01/16/18 08:20 Dose: 20 mg Fluticasone Propionate (Flonase) 1 sprays STU DAILY [facility] Last Admin: 01/16/18 08:21 Dose: 1 spr Formoterol Fumarate (Perforomist) 20 mcg INH RTBID [facility] Last Admin: 01/17/18 07:21 Dose: 20 mcg Guaifenesin (Mucinex) 600 mg PO BID [facility] Last Admin: 01/16/18 21:25 Dose: Not Given Levalbuterol HCl (Xopenex) 1.25 mg INH Q4H PRN PRN Reason: Shortness of Air/Wheezing Last Admin: 01/17/18 07:21 Dose: 1.25 mg Lisinopril (Zestril) 40 mg PO DAILY [facility] Last Admin: 01/16/18 08:19 Dose: 40 mg Lorazepam (Ativan) 0.5 mg PO Q6H PRN PRN Reason: Anxiety Last Admin: 01/16/18 16:55 Dose: 0.5 mg Morphine Sulfate (Roxanol) 5 mg PO Q2HR PRN PRN Reason: PAIN Last Admin: 01/15/18 21:55 Dose: 5 mg Nicotine (Nicoderm) 1 patch TOP DAILY [facility] Last Admin: 01/16/18 08:19 Dose: 1 patch Oxycodone HCl (Roxicodone) 5 mg PO Q4HR PRN PRN Reason: PAIN Last Admin: 01/16/18 20:33 Dose: 5 mg Polyethylene Glycol (Miralax) 17 gm PO DAILY [facility] Last Admin: 01/16/18 08:21 Dose: Not Given Prednisone (Deltasone) 40 mg PO DAILYWM [facility] Saccharomyces Boulardii (Florastor) 500 mg PO BIDWM [facility] Last Admin: 01/16/18 16:55 Dose: 500 mg Sertraline HCl (Zoloft) 25 mg PO DAILY [facility] Last Admin: 01/16/18 08:21 Dose: 25 mg Sodium Chloride (Normal Saline Flush 0.9%) 10 ml IVP PRN PRN PRN Reason: NEEDED PER PROVIDER ORDERS Last Admin: 01/11/18 21:32 Dose: 10 ml Sodium Chloride (Normal Saline Flush 0.9%) 10 ml IVP Q8HR [facility] Last Admin: 01/17/18 06:04 Dose: 10 ml Sodium Chloride ([place]) 2 sprays STU BID [facility] Last Admin: 01/16/18 20:33 Dose: 2 spray Temazepam (Restoril) 15 mg PO QPM PRN PRN Reason: Insomnia Last Admin: 01/14/18 00:19 Dose: 15 mg Throat Lozenges (Cepacol) 1 lozenge MM Q2HR PRN PRN Reason: Throat pain Last Admin: 01/17/18 05:53 Dose: 1 lozenge Acetaminophen [Tylenol Arthritis] 1,300 mg PO TID PRN 01/11/18 Albuterol 2.5 mg INH Q4H PRN 01/11/18 Albuterol Sulfate [Proair Hfa Inhaler] 2 puffs INH Q4H PRN 01/11/18 Aspirin 162.5 mg PO DAILY 01/11/18 Atorvastatin Calcium 40 mg PO QPM 01/11/18 Benzonatate [Tessalon] 100 mg PO [id number] 01/11/18 Codeine Phosphate/Guaifenesin [Guaifen-Codeine 100-10 mg/5 ml] 5 ml PO [id number] 01/11/18 Ergocalciferol [Vitamin D2] 50,000 units PO Q7D 01/11/18 Fluticasone/Salmeterol [Advair 500-50 Diskus] 1 puffs INH BID 01/11/18 Lisinopril [Lisinopril] 40 mg PO DAILY 01/11/18 amLODIPine [Norvasc] 5 mg PO DAILY 01/11/18 predniSONE [Prednisone] 40 mg PO [id number] 01/11/18 Objective - Vital Signs/Intake & Output Reviewed Vital Signs: Yes Vital Signs: Vital Signs x48h Temp Pulse Pulse Resp BP Pulse Ox 01/16/18 14:15 82 18 01/16/18 08:00 36.6 C 70 16 154/82 H 92 01/16/18 07:50 65 12 Intake & Output: Intake & Output 01/13/18 01/14/18 01/15/18 01/16/18 23:59 23:59 23:59 23:59 Intake Total 3330 3121.667 4990 3400 Output Total 500 302 Balance 2830 3121.667 4688 3400 - Objective General Appearance: positive: No acute distress, Alert, Anxious Eyes Bilateral: positive: Normal inspection, PERRL ENT: positive: ENT inspection nml, Pharynx nml, No signs of dehydration Neck: positive: Nml inspection, Thyroid nml, No JVD, Trachea midline Respiratory: positive: Chest non-tender, No respiratory distress, Wheezes, Other (crackles throughout) Cardiovascular: positive: Regular rate & rhythm, No murmur, No gallop, Decreased pulse(s) Peripheral Pulses: 1+ Radial (R), 1+ Radial (L) Abdomen: positive: Non-tender, No organomegaly, Nml bowel sounds, No distention Back: positive: Nml inspection Skin: positive: No rash, Warm, Dry Extremities: positive: Non-tender, Full ROM, Nml appearance, No pedal edema Neurologic/Psychiatric: positive: Oriented x3, CN's nml (2-12), Motor nml, Sensation nml, Weakness, Depressed mood/affect Reflexes: Bicep (R): 3+, Bicep (L): 3+ - Lab Results Fish Bones: 01/17/18 05:50 01/17/18 05:50 - Diagnostic Imaging Diagnostic Imaging Results: positive: Final report reviewed Assessment/Plan - Problem List (1) COPD exacerbation Impression: Patient has been a life long smoker of cigarettes and has recently quit ( between 1-2 weeks ago). She has since been prescribed a nicotine patch of 21mg. She now has moderate COPD with rn long term care inhalers and albuterol. She has required more frequent use of her short acting rescue inhaler and notes that after a while these were not helping. Patient does not wear home oxygen, but has needed it ever since presenting to the ED. Patient has had a few rough breathing spells that becomes worse with anxiety. Patient previously required high-flow nasal cannula at 30-40%, warm humidification per RT, now weaned down to 2-4L nasal cannula. Flutter valve therapy initiated. Plan: Continue IV steroids that have been gradually decreased with plans to switch to oral form in AM, IV antibiotics that will be changed to oral in AM, nebs, RT therapy, and continuous oxygen. Orders for an oxygen walking test will be ordered to be completed prior to discharge. Patient has had an extended hospital stay due to her inability to wean from oxygen and her uncontrolled symptoms such as air hunger, activity intolerance and poor PO intake. It is expected that she will be discharged in the next 48 hours, likely on home oxygen, oral antibiotics and steroids. (2) Chronic sinusitis, unspecified Impression: Upon exam, patient had very full, dull bilateral irritated tympanic membranes with erythema noted in bilateral ear canals that continue to improve each day. Patient states that besides her increased breathing efforts, her second complaint is feeling full of fluid in her ears. Plan: Continue Clindamycin IV, neomycin ear gtts, Flonase spray, and Afrin spray was prescribed for 3 days and now stopped. Qualifiers: Sinusitis location: unspecified location Qualified Code(s): J32.9 - Chronic sinusitis, unspecified (3) Hypoxemia Impression: Patient was noted to have an increased respiratory rate in the 30-40's upon admission. She was also noted to be using all of her accessory muscles for breathing with increased anxiety. Patient denies home oxygen use. Patient was on 2-4L nasal cannula, but this morning needed a 15L non-rebreather mask for hypoxia and poor airway clearance. Patient has been weaned off high flow. She can have morphine to improve breathing efforts. Plan: Oxygen supplementation, nebulizers, and pulmonary toileting. Respiratory culture ordered. (4) Depression Impression: Patient has been tearful since the time of admission. Patient has been counseled about starting an antidepressant in light of a recent lung nodule discovery. She was very agreeable to this. Plan: Continue Sertraline PO and recommend counseling at discharge.. Qualifiers: Depression Type: reactive depression Qualified Code(s): F32.9 - Major depressive disorder, single episode, unspecified (5) Lung nodules Impression: A chest CT was completed at the time of admission and shows: Spiculated left superior segment lower lobe pulmonary nodule concerning for primary lung malignancy and further workup is recommended. This was relayed to patient and she is interested in prompt follow up. Patient has required supplemental oxygen since the time of admission. Plan: Continue to treat acute illness and patient may need supplemental oxygen for home use.
[2018-01-16] MEDS: ATORVASTATIN 40 MG TABLET PO SCH (20:32)
[2018-01-17] MEDS: BENZOCAINE/MENTHOL LOZENGE MM PRN ×2 (05:53→08:07)
[2018-01-17] MEDS: BENZONATATE 100 MG CAPSULE PO PRN (05:57)
[2018-01-17] MEDS: SODIUM CHLORIDE FLUSH 0.9% 10 ML SYRINGE IVP SCH (06:04)
[2018-01-17 06:14] LABS: BASOPHILS % (AUTO) 0.2 %; EOSINOPHILS % (AUTO) 1.5 %; HGB - HEMOGLOBIN 12.3 g/dL (12.0-16.0); LYMPHOCYTES % (AUTO) 33.4 %; MEAN CORPUSCULAR HEMOGLOBIN 29.2 pg (27.0-31.0); MEAN CORPUSCULAR HGB CONC 32.4 g/dL (32.0-36.0); MEAN CORPUSCULAR VOLUME 90.1 fL (81.0-99.0); MEAN PLATELET VOLUME 7.4 fL (7.9-10.8); MONOCYTES % (AUTO) 5.4 %; NEUTROPHILS % (AUTO) 59.5 %; PLT - PLATELET COUNT 322 10^3/uL (130-450); RED CELL DISTRIBUTION WIDTH 14.1 % (12.0-15.0); WHITE BLOOD COUNT 13.8 x10^3/uL (4.8-10.8)
[2018-01-17 06:18] LABS: ABNORMAL LYMPHS % (MANUAL) 0 %; BAND NEUTROPHILS % (MANUAL) 0 %
[2018-01-17 06:28] LABS: ALBUMIN 2.8 g/dL (3.2-5.5); BILIRUBIN,TOTAL 0.3 mg/dL (0.2-1.0); CALCIUM 8.8 mg/dL (8.5-10.3); CREATININE 0.5 mg/dL (0.4-1.0); TOTAL PROTEIN 5.7 g/dL (6.7-8.2)
[2018-01-17] MEDS: LEVALBUTEROL 1.25 MG/3 ML NEB INH PRN ×2 (07:21→11:16)
[2018-01-17] MEDS: BUDESONIDE 0.5 MG/2 ML NEB INH SCH (07:21)
[2018-01-17] MEDS: FORMOTEROL FUMARATE NEB 20 MCG/2 ML INH SCH (07:21)
[2018-01-17 07:42] LABS: EOSINOPHILS # (MANUAL) 0.1 10^3/uL (0-0.7); LYMPHOCYTES # (MANUAL) 6.3 10^3/uL (1.5-3.5); LYMPHOCYTES % (MANUAL) 39 %; MONOCYTES # (MANUAL) 0.8 10^3/uL (0.0-1.0); NEUTROPHILS # (MANUAL) 6.5 10^3/uL (1.5-6.6); NEUTROPHILS % (MANUAL) 47 %
[2018-01-17 07:43] LABS: PLATELET ESTIMATE, MANUAL NORMAL (130-450,000) (NORMAL); PLATELET MORPHOLOGY NORMAL APPEARANCE (NORMAL)
[2018-01-17 07:44] LABS: DIFFERENTIAL COMMENT MANUAL DIFFERENTIAL
[2018-01-17 07:47] VITALS: BP 166/78
[2018-01-17] MEDS ORDERED: predniSONE 20 MG TABLET PO SCH (08:00)
[2018-01-17] MEDS: SACCHAROMYCES BOULARDII 250 MG CAPSULE PO SCH (08:03)
--- NOTE | 2018-01-17 08:03 | Discharge Plan ---
Discharge Plan Disposition: Home, Self Care Condition: Good Prescriptions: oxyCODONE [Roxicodone] 5 mg PO Q4HR PRN #25 tablet PRN Reason: Pain Benzonatate [Tessalon] 100 mg PO TID PRN #30 capsule PRN Reason: Cough Clindamycin [Cleocin] 300 mg PO BID 8 Days #32 capsule guaiFENesin [Mucinex] 600 mg PO BID #60 tablet LORazepam [Ativan] 0.5 mg PO Q6H PRN #25 tablet PRN Reason: Anxiety predniSONE [Deltasone] 40 mg PO DAILYWM 6 Days #9 tablet Saccharomyces Boulardii [Florastor] 250 mg PO BID 16 Days #32 capsule Sertraline [Zoloft] 25 mg PO DAILY #30 tablet Diet: Regular Activity Restrictions: No Restrictions Shower Restrictions: No Driving Restrictions: No Weight Bearing: Full Weight Additional Instructions or Follow Up instructions: You were treated for COPD exacerbation, sinusitis and low oxygen. You should continue your antibiotics and steroids at home. You will have a walking oxygen test which will likely show the need for home O2. You were put on a mild antidepressant for your recent depression and should see a counselor in the near future. You should see your PCP in the next few days. You should rest and build up your activity gradually. NOTES FROM ED: The CT scan did not show pneumonia or blood clots in your lungs - but it did show lung nodules that could be cancer - you need further work up with a test called a PET scan. Also on the CT the radiologist notes that you have an aortic aneurysm in your abdominal cavity - it is not large enough to need surgery right now but it should be checked by ultrasound every 6 months and if it gets bigger than 5 cm surgery might be considered. No Smoking: If you smoke, Please STOP! Call for help. Follow-up with: Jabier Guerrero PA-C [Primary Care Provider] -
[2018-01-17] MEDS: CLINDAMYCIN 150 MG CAPSULE PO SCH ×2 (08:04→09:41)
[2018-01-17] MEDS: LISINOPRIL 20 MG TABLET PO SCH (08:04)
[2018-01-17] MEDS: guaiFENesin 600 MG TABLET PO SCH (08:05)
[2018-01-17] MEDS: FAMOTIDINE 20 MG TABLET PO SCH (08:05)
[2018-01-17] MEDS: ASPIRIN 325 MG TABLET PO SCH (08:05)
[2018-01-17] MEDS: oxyCODONE 5 MG TABLET PO PRN (08:05)
[2018-01-17] MEDS: LORazepam 0.5 MG TABLET PO PRN (08:06)
[2018-01-17] MEDS: amLODIPine 5 MG TABLET PO SCH (08:06)
[2018-01-17] MEDS: DOCUSATE SODIUM 250 MG CAPSULE PO SCH (08:06)
[2018-01-17] MEDS: SERTRALINE 25 MG TABLET PO SCH (08:06)
[2018-01-17] MEDS: ENOXAPARIN 40 MG/0.4 ML SYRINGE SUBQ SCH (08:07)
[2018-01-17] MEDS: NICOTINE 7 MG PATCH TOP SCH (08:07)
[2018-01-17] MEDS: FLUTICASONE NASAL SPRAY NAS SCH (08:07)
[2018-01-17] MEDS: SODIUM CHLORIDE 0.65% NASAL SPRAY NAS SCH (08:08)
[2018-01-17] MEDS: POLYETHYLENE GLYCOL 3350 17 GM PACKET PO SCH (08:08)
--- NOTE | 2018-01-17 08:18 | DISCHARGE SUMMARY ---
Discharge Summary Admit Date: 01/11/18 Discharge Date: 01/17/18 Discharging Provider: LAINE Vaughn Primary Care Provider: Jabier Guerrero Code Status: Attempt Resuscitation Condition at Discharge: Good Discharge Disposition: 01 Home, Self Care - DIAGNOSES Admission Diagnoses: Chronic obstructive pulmonary disease with (acute) exacerbation (J44.1) Chronic sinusitis, unspecified (J32.9) Hypoxemia (R09.02) Discharge Diagnoses with Status of Each Condition: COPD exacerbation (J44.1) chronic, stable. Sinusitis (J32.9) ongoing, treatment to continue. Hypoxia (R09.02) resolved, home O2 prescribed. Depression (F32.9) new Dx on this admit, controlled. Lung nodules (R91.8) new on this admit, ongoing investigation out patient. - HPI History of Present Illness: Mirela Recinos is a 77-year old white female with a past medical history of tobacco dependence, emphysema, COPD, HTN, hyperlipidemia, chronic back pain, osteoarthritis, and anxiety. She presented to the ED yesterday for the same problem, was given a z-brian, steroids and sent home. She returned again today and was found to be hypoxic, severely short of breath, increased cough and tachycardic. A chest CT was completed that showed suspicious pulmonary nodules , and a AAA, and no PE. Flu swabs were negative. Patient had a mildly elevated WBC count of 12.6, although she was just put on steroids within the last 24 hours. She will be admitted to inpatient for further management of COPD , and possibly inner ear infection. - HOSPITAL COURSE Hospital Course: The following diagnoses were prevalent during this hospital stay: (1) COPD exacerbation- Patient has been a life long smoker of cigarettes and has recently quit (between 1-2 weeks ago). She has since been prescribed a nicotine patch of 21mg. 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 She has required more frequent use of her short acting rescue inhaler and notes that after a while these were not helping. Patient does not wear home oxygen, but has needed it ever since presenting to the ED. Patient has had a few rough breathing spells that becomes worse with anxiety. Patient previously required high-flow nasal cannula at 30-40%, warm humidification per RT, now weaned down to 2-4L nasal cannula. Flutter valve therapy initiated. Patient was continued on IV steroids that have been gradually decreased and switched to oral form, IV antibiotics that were changed to PO, nebs, RT therapy , and continuous oxygen. Patient was discharged on home oxygen. (2) Chronic sinusitis, unspecified- Upon exam, patient had very full, dull bilateral irritated tympanic membranes with erythema noted in bilateral ear canals that continue to improve each day. Patient states that besides her increased breathing efforts, her second complaint is feeling full of fluid in her ears. Patient was continued on Clindamycin IV, neomycin ear gtts, Flonase spray, and Afrin spray was prescribed for 3 days and now stopped. Clindamycin and a prednisone taper were continued to be used at home for a short course. (3) Hypoxemia- Patient was noted to have an increased respiratory rate in the 30-40's upon admission. She was also noted to be using all of her accessory muscles for breathing with increased anxiety. Patient denies home oxygen use. Patient was on 2-4L nasal cannula, but earlier in her stay required high flow, which has been weaned off. She used morphine/oxycodone to improve breathing efforts. Patient was continued on oxygen supplementation, nebulizers, and pulmonary toileting. Respiratory culture ordered, but unable to obtain a sample. A [id number] exam was completed and plans to continue oxygen for home use was discussed with the patient prior to discharge. Discussion included walking oxygen test results, of an oxygen saturation of 87% on room air while ambulating in the jara and oxygen improved to 92% after placing 2L of oxygen per nasal cannula. Patient was hypoxic at rest on room air oxygen saturation of 87%, at rest with oxygen at 2L nasal cannula, her saturation improved to 90%. With exertion, on 2L nasal cannula her saturation were 92% at 200 feet and 100 feet. I have ordered home oxygen at 2L nasal cannula to be administered continuously to prevent hypoxia. (4) Depression- Patient has been tearful since the time of admission. Patient has been counseled about starting an antidepressant in light of a recent lung nodule discovery. She was very agreeable to this. Patient should continue on Sertraline PO and we recommend counseling at discharge. (5) Lung nodules- A chest CT was completed at the time of admission and shows: Spiculated left superior segment lower lobe pulmonary nodule concerning for primary lung malignancy and further workup is recommended. This was relayed to patient and she is interested in prompt follow up. Patient has required supplemental oxygen since the time of admission. Patient was treated for her acute illness and qualified for home oxygen at the time of discharge. Disposition: Patient was discharged home in stable condition with a hand written prescription for pain and anxiety, including symptom control. All other prescriptions were sent to pharmacy of choice. - ALLERGIES Allergies/Adverse Reactions: Allergies Allergy/AdvReac Type Severity Reaction Status Date / Time No Known Drug Allergies Allergy Verified 01/10/18 03:16 - MEDICATIONS Home Medications: Ambulatory Orders Medication Instructions Recorded Confirmed Ipratropium/Albuterol [Duoneb] 3 ml INH Q6H #30 neb 01/10/18 01/11/18 Acetaminophen [Tylenol Arthritis] 1,300 mg PO TID PRN 01/11/18 01/11/18 Albuterol 2.5 mg INH Q4H PRN 01/11/18 01/11/18 Albuterol Sulfate [Proair Hfa 2 puffs INH Q4H PRN 01/11/18 01/11/18 Inhaler] Aspirin 162.5 mg PO DAILY 01/11/18 01/11/18 Atorvastatin Calcium 40 mg PO QPM 01/11/18 01/11/18 Codeine Phosphate/Guaifenesin 5 ml PO [id number] 01/11/18 01/11/18 [Guaifen-Codeine 100-10 mg/5 ml] Ergocalciferol [Vitamin D2] 50,000 units PO Q7D 01/11/18 01/11/18 Fluticasone/Salmeterol [Advair 1 puffs INH BID 01/11/18 01/11/18 500-50 Diskus] Lisinopril 40 mg PO DAILY 01/11/18 01/11/18 amLODIPine [Norvasc] 5 mg PO DAILY 01/11/18 01/11/18 predniSONE [Prednisone] 40 mg PO [id number] 01/11/18 01/11/18 Benzonatate [Tessalon] 100 mg PO TID PRN #30 capsule 01/17/18 Clindamycin [Cleocin] 300 mg PO BID 8 Days #32 capsule 01/17/18 LORazepam [Ativan] 0.5 mg PO Q6H PRN #25 tablet 01/17/18 Saccharomyces Boulardii [Florastor] 250 mg PO BID 16 Days #32 capsule 01/17/18 Sertraline [Zoloft] 25 mg PO DAILY #30 tablet 01/17/18 guaiFENesin [Mucinex] 600 mg PO BID #60 tablet 01/17/18 oxyCODONE [Roxicodone] 5 mg PO Q4HR PRN #25 tablet 01/17/18 predniSONE [Deltasone] 40 mg PO DAILYWM 6 Days #9 tablet 01/17/18 - PHYSICAL EXAM AT DISCHARGE General Appearance: positive: No acute distress, Alert Eyes Bilateral: positive: Normal inspection, PERRL ENT: positive: ENT inspection nml, Pharynx nml, No signs of dehydration Neck: positive: Nml inspection, Thyroid nml, No JVD, Trachea midline Respiratory: positive: Chest non-tender, No respiratory distress, Breath sounds nml, Other (diminished) Cardiovascular: positive: Regular rate & rhythm, No murmur, No gallop, Decreased pulse(s) Peripheral Pulses: positive: 1+ Abdomen: positive: Non-tender, No organomegaly, Nml bowel sounds, No distention Back: positive: Nml inspection Skin: positive: No rash, Warm, Dry, Pallor Extremities: positive: Non-tender, Full ROM, Nml appearance, No pedal edema Neurologic/Psychiatric: positive: Oriented x3, CN's nml (2-12), Motor nml, Sensation nml, Depressed mood/affect Reflexes: Bicep (R): 2+, Bicep (L): 2+ - LABS Result Diagrams: 01/17/18 05:50 01/17/18 05:50 - DIAGNOSTIC IMAGING Diagnostic Imaging Results: Final report reviewed - FOLLOW UP Follow Up: Disposition: Home, Self Care Condition: Good Prescriptions: oxyCODONE [Roxicodone] 5 mg PO Q4HR PRN #25 tablet PRN Reason: Pain Benzonatate [Tessalon] 100 mg PO TID PRN #30 capsule PRN Reason: Cough Clindamycin [Cleocin] 300 mg PO BID 8 Days #32 capsule guaiFENesin [Mucinex] 600 mg PO BID #60 tablet LORazepam [Ativan] 0.5 mg PO Q6H PRN #25 tablet PRN Reason: Anxiety predniSONE [Deltasone] 40 mg PO DAILYWM 6 Days #9 tablet Saccharomyces Boulardii [Florastor] 250 mg PO BID 16 Days #32 capsule Sertraline [Zoloft] 25 mg PO DAILY #30 tablet Diet: Regular Activity Restrictions: No Restrictions Shower Restrictions: No Driving Restrictions: No Weight Bearing: Full Weight Additional Instructions or Follow Up instructions: You were treated for COPD exacerbation, sinusitis and low oxygen. You should continue your antibiotics and steroids at home. A walking oxygen test was completed and you showed the need for home O2. You were put on a mild antidepressant for your recent depression and should see a counselor in the near future. You should see your PCP in the next few days. You should rest and build up your activity gradually. NOTES FROM ED: The CT scan did not show pneumonia or blood clots in your lungs - but it did show lung nodules that could be cancer - you need further work up with a test called a PET scan. Also on the CT the radiologist notes that you have an aortic aneurysm in your abdominal cavity - it is not large enough to need surgery right now but it should be checked by ultrasound every 6 months and if it gets bigger than 5 cm surgery might be considered. - TIME SPENT Time Spent in Discharge (Minutes): 60
== END 2018-01-17 13:45 | disposition home or self-care (01) | DRG 191 ==
LOC: EDUNIT# → ED 13:49 → MS2 17:44
PROVIDERS: ADMIT Nurse Practitioner; ATTEND Nurse Practitioner
DX: J44.1 Chronic obstructive pulmonary disease with (acute) exacerbation (principal); C34.32 Malignant neoplasm of lower lobe, left bronchus or lung; I71.4 Abdominal aortic aneurysm, without rupture; R91.1 Solitary pulmonary nodule; I10 Essential (primary) hypertension; E78.00 Pure hypercholesterolemia, unspecified; M19.90 Unspecified osteoarthritis, unspecified site; G89.29 Other chronic pain; M54.9 Dorsalgia, unspecified; R09.02 Hypoxemia; J32.9 Chronic sinusitis, unspecified; F32.9 Major depressive disorder, single episode, unspecified; F41.9 Anxiety disorder, unspecified; K21.9 Gastro-esophageal reflux disease without esophagitis; R32 Unspecified urinary incontinence; R35.0 Frequency of micturition; H54.7 Unspecified visual loss; H91.90 Unspecified hearing loss, unspecified ear; Z81.1 Family history of alcohol abuse and dependence; Z80.9 Family history of malignant neoplasm, unspecified; Z87.891 Personal history of nicotine dependence
CPT/HCPCS: 36415; 36600; 71046; 71275; 80048; 80053; 82803; 83735; 83880; 84484; 85025; 85379; 93306; 94640; 94761; 96374; 99284

== ENCOUNTER 2018-03-05 15:13 | Outpatient (CLI) | payer MEDICARE, OTHER | END 2018-03-05 15:14 | disposition home or self-care (01) | LOC: RT 15:13 | PROVIDERS: ATTEND Internal Medicine Hematology & Oncology | DX: C34.92 Malignant neoplasm of unspecified part of left bronchus or lung (principal) | CPT/HCPCS: 94010; 94664 ==

== ENCOUNTER 2018-04-26 14:36 | Outpatient (CLI) | payer MEDICARE, OTHER ==
[2018-04-26 19:06] LABS: BASOPHILS # (AUTO) 0.1 10^3/uL (0.0-0.1); EOSINOPHILS # (AUTO) 0.1 10^3/uL (0.0-0.7); EOSINOPHILS % (AUTO) 1.6 %; LYMPHOCYTES # (AUTO) 2.3 10^3/uL (1.5-3.5); LYMPHOCYTES % (AUTO) 33.8 %; MEAN CORPUSCULAR HEMOGLOBIN 30.4 pg (27.0-31.0); MEAN CORPUSCULAR HGB CONC 32.8 g/dL (32.0-36.0); MEAN CORPUSCULAR VOLUME 92.7 fL (81.0-99.0); MEAN PLATELET VOLUME 9.1 fL (7.9-10.8); MONOCYTES # (AUTO) 0.4 10^3/uL (0.0-1.0); MONOCYTES % (AUTO) 5.6 %; NEUTROPHILS # (AUTO) 3.8 10^3/uL (1.5-6.6); PLT - PLATELET COUNT 268 10^3/uL (130-450); RED BLOOD COUNT 4.27 10^6/uL (4.20-5.40); RED CELL DISTRIBUTION WIDTH 14.8 % (12.0-15.0); WHITE BLOOD COUNT 6.7 x10^3/uL (4.8-10.8)
[2018-04-26 19:36] LABS: ALBUMIN/GLOBULIN RATIO 1.4 (1.0-2.2); BILIRUBIN,TOTAL 0.7 mg/dL (0.2-1.0); CALCIUM 9.2 mg/dL (8.5-10.3); CREATININE 0.4 mg/dL (0.4-1.0); TOTAL PROTEIN 6.8 g/dL (6.7-8.2)
== END 2018-04-26 14:37 ==
LOC: LAB.N 14:36
PROVIDERS: ATTEND Internal Medicine Gastroenterology
DX: Z01.812 Encounter for preprocedural laboratory examination (principal); K92.1 Melena; R19.7 Diarrhea, unspecified; J44.9 Chronic obstructive pulmonary disease, unspecified
CPT/HCPCS: 36415; 80053; 85025

== ENCOUNTER 2018-04-28 12:51 | Day surgery (SDC) | payer MEDICARE, OTHER ==
[2018-04-28] MEDS ORDERED: LACTATED RINGERS 1,000 ML IV ONE (13:46)
[2018-04-28] MEDS ORDERED: KETAMINE 500 MG/10 ML VIAL IVP ONE (14:00)
[2018-04-28] MEDS ORDERED: PROPOFOL 200 MG/20 ML VIAL IVP ONE (14:00)
[2018-04-28] MEDS ORDERED: MIDAZOLAM 2 MG/2 ML VIAL IVP ONE (14:00)
[2018-04-28] MEDS ORDERED: LIDO GARGLE 30 ML BOTTLE ONE (14:18)
[2018-04-28 15:12] VITALS: BP 158/86
== END 2018-04-28 12:52 | disposition home or self-care (01) ==
LOC: SDS 12:51
PROVIDERS: ATTEND Internal Medicine Gastroenterology
PROC: 0DB68ZX Excision of Stomach, Via Natural or Artificial Opening Endoscopic, Diagnostic (ICD-10-PCS; 2018-04-28)
PROC: 0DBK8ZX Excision of Ascending Colon, Via Natural or Artificial Opening Endoscopic, Diagnostic (ICD-10-PCS; principal; 2018-04-28 14:19)
PROC: 0DBP8ZX Excision of Rectum, Via Natural or Artificial Opening Endoscopic, Diagnostic (ICD-10-PCS; 2018-04-28 14:19)
DX: K52.9 Noninfective gastroenteritis and colitis, unspecified (principal); K92.1 Melena; K31.9 Disease of stomach and duodenum, unspecified; D12.6 Benign neoplasm of colon, unspecified; D12.8 Benign neoplasm of rectum; I10 Essential (primary) hypertension; J44.9 Chronic obstructive pulmonary disease, unspecified; F32.9 Major depressive disorder, single episode, unspecified; E66.9 Obesity, unspecified; G89.29 Other chronic pain; M54.9 Dorsalgia, unspecified; M81.0 Age-related osteoporosis without current pathological fracture
CPT/HCPCS: 43239; 45380; 87081; A9270; J7120; 88305

== ENCOUNTER 2018-05-10 15:13 | Outpatient (CLI) | payer MEDICARE, OTHER ==
--- NOTE | 2018-05-10 16:10 | XRAY Report ---
Procedure Date: 05/10/2018 Accession Number: [id number] / [id number] Procedure: XRN - Chest 2 View X-Ray CPT Code: 75334 FULL RESULT: EXAM: Chest 2 View X-Ray DATE: 05/10/2018 3:35 PM CLINICAL HISTORY: soa COMPARISON: Chest CT 01/11/2018 TECHNIQUE: 2 view chest FINDINGS: The cardiac silhouette is within normal limits. Emphysema is stable. The spiculated nodule in the superior segment of the left lower lobe on CT is not well seen on plain film. No effusion or pneumothorax is present. IMPRESSION: No evidence of acute cardiopulmonary disease. Emphysema. Follow-up of the spiculated nodule on CT should be performed with CT, as it is not well appreciated on plain film.
== END 2018-05-10 15:14 | disposition home or self-care (01) ==
LOC: DI.N 15:13
PROVIDERS: ATTEND Nurse Practitioner Gerontology
DX: J43.9 Emphysema, unspecified (principal)
CPT/HCPCS: 71046

== ENCOUNTER 2018-07-04 11:05 | Outpatient (CLI) | payer MEDICARE, OTHER ==
--- NOTE | 2018-07-04 13:01 | Ultrasound Report ---
Procedure Date: 07/04/2018 Accession Number: [id number] / [id number] Procedure: US - Retroperitoneal Limited CPT Code: FULL RESULT: EXAM: AORTIC DOPPLER ULTRASOUND EXAM DATE: 07/04/2018 12:12 PM. CLINICAL HISTORY: Abdominal aortic aneurysm, without rupture. COMPARISON: RETROPERITONEAL LIMITED 06/10/2017. TECHNIQUE: Real-time sonographic imaging of retroperitoneal vascular structures, including color-flow, Doppler flow and spectral analysis was performed by the technical administrative assistant. Multiple outside medical sales representative static images were saved for review. FINDINGS: Aorta: The abdominal aorta was adequately visualized. No evidence for abdominal aortic aneurysm. Continued interval enlargement of the infrarenal aortic aneurysm now measuring 4.3 x 5 cm (previously up to 3.7 x 4.4 cm in the infrarenal). Iliac Vessels: The visualized proximal common iliac arteries are normal in caliber. Other: None. IMPRESSION: Interval enlargement of infrarenal AAA, now measuring 4.3 x 5 cm). RADIA The above findings were discussed with nurse Carrington by Dr. Ryan Gonzalez at 12:57 hrs on 07/04/18.
== END 2018-07-04 11:06 | disposition home or self-care (01) ==
LOC: DI 11:05
PROVIDERS: ATTEND Nurse Practitioner Gerontology
DX: I72.2 Aneurysm of renal artery (principal)
CPT/HCPCS: 76775

== ENCOUNTER 2018-12-20 15:29 | Outpatient (CLI) | payer MEDICARE, OTHER ==
[2018-12-20 20:02] LABS: ALBUMIN 3.9 g/dL (3.2-5.5); ALBUMIN/GLOBULIN RATIO 1.3 (1.0-2.2); BILIRUBIN,TOTAL 0.7 mg/dL (0.2-1.0); CALCIUM 9.6 mg/dL (8.5-10.3); CREATININE 0.8 mg/dL (0.4-1.0); MAGNESIUM 2.2 mg/dL (1.7-2.8); TOTAL PROTEIN 6.8 g/dL (6.7-8.2)
== END 2018-12-20 23:59 | disposition home or self-care (01) ==
LOC: LAB.N 15:29
PROVIDERS: ATTEND Nurse Practitioner Gerontology
DX: R25.2 Cramp and spasm (principal); Z79.899 Other long term (current) drug therapy
CPT/HCPCS: 36415; 80053; 83735

== ENCOUNTER 2019-02-14 07:10 | Outpatient (CLI) | payer MEDICARE, OTHER ==
--- NOTE | 2019-02-14 10:27 | Ultrasound Report ---
Reason: ABDOMINAL AORTIC ANEURYSM Procedure Date: 02/14/2019 Accession Number: [id number] / [id number] Procedure: US - Retroperitoneal Limited CPT Code: FULL RESULT: EXAM: AORTIC DOPPLER ULTRASOUND EXAM DATE: 02/14/2019 07:26 AM. CLINICAL HISTORY: Abdominal aortic aneurysm. COMPARISON: RETROPERITONEAL LIMITED 07/04/2018 11:26 AM. TECHNIQUE: Real-time sonographic imaging of retroperitoneal vascular structures, including color-flow, was performed by the a&p technician. Multiple community relations representative static images were saved for review. FINDINGS: Aorta: The abdominal aorta was adequately visualized. Again noted is a long infrarenal, fusiform abdominal aortic aneurysm which begins inferior to the takeoff of the renal arteries and extends to the bifurcation. There has been interval increase in atheromatous plaque within the lumen of the aneurysm. Aorta: Proximal: Sagittal AP: 2.2 cm. Mid: Transverse: 4.4 x 4.5 cm. Distal: Transverse: 4.3 x 4.7 cm. Iliacs: Right Iliac: Transverse: 1.5 x 1.6 cm. Left Iliac: Transverse: 1.2 x 1.2 cm. Iliac Vessels: The visualized proximal common iliac arteries are normal in caliber. Dense calcific plaque is noted at the origin of the right common iliac. Other: None. IMPRESSION: Little interval change in diameter of long fusiform infrarenal abdominal aortic aneurysm compared to prior exam. RADIA
== END 2019-02-14 07:11 | disposition home or self-care (01) ==
LOC: DI 07:10
PROVIDERS: ATTEND Nurse Practitioner Gerontology
DX: I71.4 Abdominal aortic aneurysm, without rupture (principal)
CPT/HCPCS: 76775

== ENCOUNTER 2019-03-13 11:07 | Outpatient (CLI) | payer MEDICARE, OTHER ==
--- NOTE | 2019-03-13 13:32 | XRAY Report ---
Reason: tobacco dependence; lung nodule Procedure Date: 03/13/2019 Accession Number: [id number] / [id number] Procedure: XRN - Chest 2 View X-Ray CPT Code: 90216 FULL RESULT: EXAM: CHEST RADIOGRAPHY EXAM DATE: 03/13/2019 11:24 AM. CLINICAL HISTORY: Tobacco dependence; lung nodule. COMPARISON: CHEST 2 VIEW 05/10/2018 3:34 PM. TECHNIQUE: 2 views. FINDINGS: Lungs/Pleura: No focal opacities evident. No pleural effusion. No pneumothorax. Normal volumes. Mediastinum: Heart and mediastinal contours are unremarkable. Other: None. IMPRESSION: Normal 2-view chest radiography. RADIA
== END 2019-03-13 11:08 | disposition home or self-care (01) ==
LOC: DI.N 11:07
PROVIDERS: ATTEND Nurse Practitioner Gerontology
DX: R91.1 Solitary pulmonary nodule (principal); F17.200 Nicotine dependence, unspecified, uncomplicated
CPT/HCPCS: 71046

== ENCOUNTER 2019-08-30 14:24 | Outpatient (CLI) | payer MEDICARE, OTHER | END 2019-08-30 14:25 | disposition critical access hospital (66) | LOC: EMS 14:24 | PROVIDERS: ATTEND Surgery | DX: R06.02 Shortness of breath (principal) | CPT/HCPCS: A0425; A0427 ==

== ENCOUNTER 2019-08-30 14:53 | Emergency (ER) | payer MEDICARE, OTHER ==
[2019-08-30] MEDS ORDERED: ALBUTEROL NEB 2.5 MG/3 ML INH STA ×2 (15:07→17:37)
[2019-08-30] MEDS ORDERED: MAGNESIUM SULFATE 2 GRAM 2 GM/50 ML BAG IV ONE (15:20)
[2019-08-30] MEDS ORDERED: cefTRIAXone 1 GM in SODIUM CHLORIDE 0.9% MINIBAG 100 ML IV STA (15:20)
--- NOTE | 2019-08-30 15:23 | ED Physician Documentation ---
PD HPI DYSPNEA - Stated complaint Stated Complaint: SOA - Chief complaint Chief Complaint: Resp - History obtained from History obtained from: Patient, EMS - History of Present Illness Timing - onset: Yesterday Timing - onset during: Rest Timing - duration: Days (2) Timing - details: Gradual onset, Still present Inciting event(s): URI Improved by: O2, Inhaler/neb, Steroids Worsened by: Exertion, Coughing Associated symptoms: Cough, Wheezing. No: Bilateral edema, Unilateral edema Similar symptoms before: Diagnosis (COPD) Recently seen: Not recently seen - Additional information Additional information: 79-year-old smoking female with a history of COPD has developed a cough and congestion over the last 2 days and now she has developed increasing shortness of breath which has become severe today. She has been using her nebulizer frequently and she eventually called the ambulance she is administered a DuoNeb treatment in route to the hospital as well as 125 mg of Solu-Medrol intravenously. She arrives to the emergency department with persistent tight wheezes slightly improved and requiring oxygen. Review of Systems Constitutional: reports: Myalgias, Fatigue, Sweats. denies: Fever Eyes: denies: Photophobia Ears: denies: Ear pain Nose: reports: Rhinorrhea / runny nose, Congestion Throat: denies: Sore throat Cardiac: denies: Chest pain / pressure, Palpitations, Pedal edema, Calf pain Respiratory: reports: Dyspnea, Cough, Wheezing GI: denies: Abdominal Pain, Nausea, Vomiting : denies: Dysuria, Frequency PD PAST MEDICAL HISTORY - Past Medical History Cardiovascular: Hypertension, High cholesterol Respiratory: COPD, Emphysema, Shortness of breath Endocrine/Autoimmune: None GI: GERD : Incontinence, Frequency HEENT: Chronic vision loss, Chronic sinusitis, Chronic hearing loss Psych: Depression, Anxiety Musculoskeletal: Osteoarthritis, Chronic back pain - Past Surgical History Past Surgical History: Yes General: Appendectomy 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 Cardiovascular: AAA - Present Medications Home Medications: Ambulatory Orders Medication Instructions Recorded Confirmed Aspirin 162.5 mg PO DAILY 01/11/18 04/28/18 Atorvastatin Calcium 40 mg PO QPM 01/11/18 04/28/18 Ergocalciferol [Vitamin D2] 50,000 units PO Q7D 01/11/18 04/28/18 Lisinopril 40 mg PO DAILY 01/11/18 04/28/18 amLODIPine [Norvasc] 5 mg PO DAILY 01/11/18 04/28/18 Sertraline [Zoloft] 100 mg PO DAILY 02/21/18 04/28/18 Azithromycin [Zithromax] 250 mg PO DAILY #6 tablet 08/30/19 Codeine Phosphate/Guaifenesin 5 - 10 ml PO Q6HR PRN #240 ml 08/30/19 [Guaifen-Codeine 100-10 mg/5 ml] Ipratropium/Albuterol [Duoneb] 3 ml INH Q6H PRN #24 neb 08/30/19 predniSONE [Deltasone] 10 mg PO ONCE #26 tablet 08/30/19 - Allergies Allergies/Adverse Reactions: Allergies Allergy/AdvReac Type Severity Reaction Status Date / Time acetaminophen [From Vicodin] Allergy Itching Verified 08/30/19 15:04 alendronate sodium Allergy gi upset Verified 08/30/19 15:04 [From Fosamax] hydrocodone [From Vicodin] Allergy Itching Verified 08/30/19 15:04 raloxifene [From Evista] Allergy Rash Verified 08/30/19 15:04 tramadol Allergy Itching Verified 08/30/19 15:04 valacyclovir Allergy tongue Verified 08/30/19 15:04 swelling varenicline [From Chantix] Allergy paranoya Verified 08/30/19 15:04 - Social History Does the pt smoke?: Yes Smoking Status: Former smoker Does the pt drink ETOH?: No Does the pt have substance abuse?: No - Immunizations Immunizations are current?: No - POLST Patient has POLST: No POLST Status: Full Code PD ED PE NORMAL - Vitals Vital signs reviewed: Yes (tachy and tachypneic ) - General General: No acute distress, Well developed/nourished - HEENT HEENT: Atraumatic, PERRL, EOMI, Other (both TM's are inflammed along the umbo the right is worse than the left. ) - Neck Neck: Supple, no meningeal sign, No bony TTP - Cardiac Cardiac: No murmur, Other (tachy to 100) - Respiratory Respiratory: Other (tachypneic at rest with albuterol running and tight wheezes bibasilar) - Abdomen Abdomen: Soft, Non tender - Back Back: No CVA TTP, No spinal TTP - Derm Derm: Normal color, Warm and dry, No rash - Extremities Extremities: No deformity, No edema - Neuro Neuro: Alert and oriented X 3, deputy building guard 2-12 intact, No motor deficit, No sensory deficit, Normal speech Eye Opening: Spontaneous Motor: Obeys Commands Verbal: Oriented GCS Score: 15 - Psych Psych: Normal mood, Normal affect Results - Vitals Vitals: Vital Signs - 24 hr 08/30/19 08/30/19 08/30/19 14:56 15:10 16:57 Temperature 37.1 C Heart Rate 110 H 118 H 104 H Respiratory 35 H 20 14 Rate Blood Pressure 131/75 H O2 Saturation 97 94 08/30/19 08/30/19 17:10 18:20 Temperature Heart Rate 93 92 Respiratory 16 20 Rate Blood Pressure O2 Saturation Oxygen O2 Source Room air Oxygen Flow Rate 2 - Labs Labs: Laboratory Tests 08/30/19 08/30/19 08/30/19 15:37 15:37 15:37 WBC 10.5 RBC 4.22 Hgb 13.3 Hct 39.9 MCV 94.5 MCH 31.5 H MCHC 33.3 RDW 12.6 Plt Count 259 MPV 9.6 Neut # (Auto) 9.3 H Lymph # (Auto) 0.7 L Sully # (Auto) 0.2 Eos # (Auto) 0.2 Baso # (Auto) 0.0 Absolute Nucleated RBC 0.00 Nucleated RBC % 0.0 VBG pH VBG pCO2 VBG pO2 VBG HCO3 VBG Total CO2 VBG O2 Saturation VBG Base Excess Sodium 133 L Potassium 3.5 Chloride 100 L Carbon Dioxide 26 Anion Gap 7.0 BUN 19 Creatinine 0.9 Estimated GFR (MDRD) 61 L Glucose 125 H Lactic Acid 2.3 H Calcium 9.0 Total Bilirubin 0.2 AST < 10 L ALT 20 Alkaline Phosphatase 150 H Total Protein 7.2 Albumin 4.0 Globulin 3.2 Albumin/Globulin Ratio 1.3 Lipase 27 08/30/19 15:37 WBC RBC Hgb Hct MCV MCH MCHC RDW Plt Count MPV Neut # (Auto) Lymph # (Auto) Sully # (Auto) Eos # (Auto) Baso # (Auto) Absolute Nucleated RBC Nucleated RBC % VBG pH 7.303 L VBG pCO2 47.6 VBG pO2 45.3 VBG HCO3 23.1 VBG Total CO2 24.5 VBG O2 Saturation 79.8 VBG Base Excess -3.6 L Sodium Potassium Chloride Carbon Dioxide Anion Gap BUN Creatinine Estimated GFR (MDRD) Glucose Lactic Acid Calcium Total Bilirubin AST ALT Alkaline Phosphatase Total Protein Albumin Globulin Albumin/Globulin Ratio Lipase - Rads (name of study) chest Radiology: Prelim report reviewed (Impression: Mild chronic unchanged pulmonary edema.), EMP read indepedently, See rad report PD MEDICAL DECISION MAKING - ED course Complexity details: reviewed old records, reviewed results, re-evaluated patient, considered differential, d/w patient ED course: 79 y/o female with COPD exacerbation arrives hypoxic with tight wheezes. She is given duo neb and albuterol and received solumedrol en-route. She requires continued oxygen and she is administered Rocephin as well as magnesium and a liter of saline. Her chest x-ray is read read as mild pulmonary edema and I have checked her inferior vena cava and found that she has a small vessel that is collapsing I do not see evidence of failure. She is given a second duo-neb treatment tesselon and toradal IV for headache. She has steady improvement and is no longer hypoxic. 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
[2019-08-30 15:43] LABS: BASOPHILS % (AUTO) 0.1 %; EOSINOPHILS # (AUTO) 0.2 10^3/uL (0.0-0.7); EOSINOPHILS % (AUTO) 1.5 %; HGB - HEMOGLOBIN 13.3 g/dL (12.0-16.0); LYMPHOCYTES # (AUTO) 0.7 10^3/uL (1.5-3.5); MEAN CORPUSCULAR HEMOGLOBIN 31.5 pg (27.0-31.0); MEAN CORPUSCULAR HGB CONC 33.3 g/dL (32.0-36.0); MEAN CORPUSCULAR VOLUME 94.5 fL (81.0-99.0); MEAN PLATELET VOLUME 9.6 fL (7.9-10.8); MONOCYTES # (AUTO) 0.2 10^3/uL (0.0-1.0); MONOCYTES % (AUTO) 1.8 %; NEUTROPHILS # (AUTO) 9.3 10^3/uL (1.5-6.6); PLT - PLATELET COUNT 259 10^3/uL (130-450); RED BLOOD COUNT 4.22 10^6/uL (4.20-5.40); RED CELL DISTRIBUTION WIDTH 12.6 % (12.0-15.0); WHITE BLOOD COUNT 10.5 x10^3/uL (4.8-10.8)
[2019-08-30 15:50] LABS: VBG PCO2 47.6 mmHg (41-51); VBG PH 7.303 (7.31-7.41); VBG PO2 45.3 mmHg (25-47)
[2019-08-30 15:51] LABS: VBG BASE EXCESS -3.6 mmol/L (-2 - +2); VBG TOTAL CO2 24.5 mmol/L (24-29)
--- NOTE | 2019-08-30 16:01 | XRAY Report ---
Reason: chest pain Procedure Date: 08/30/2019 Accession Number: [id number] / [id number] Procedure: XR - Chest 1 View X-Ray CPT Code: 08542 FULL RESULT: EXAM: CHEST RADIOGRAPHY EXAM DATE: 08/30/2019 03:35 PM. CLINICAL HISTORY: Chest pain. COMPARISON: CHEST 2 VIEW 03/13/2019 11:28 AM. TECHNIQUE: 1 view. FINDINGS: Lungs/Pleura: Mild chronic appearing pulmonary edema, unchanged since prior. No focal opacities evident. No pleural effusion. No pneumothorax. Mediastinum: Within exam limitations, the cardiomediastinal contour is normal. Other: None. IMPRESSION: Mild chronic unchanged pulmonary edema. RADIA
[2019-08-30] MEDS ORDERED: SODIUM CHLORIDE 0.9% 1,000 ML IV ONE (16:29)
[2019-08-30] MEDS ORDERED: BENZONATATE 100 MG CAPSULE PO STA (16:29)
[2019-08-30 16:48] LABS: ALKALINE PHOSPHATASE 150 IU/L (42-121); ALT ALANINE AMINOTRANSFERASE 20 IU/L (10-60); CARBON DIOXIDE - CO2 26 mmol/L (21-32); CHLORIDE 100 mmol/L (101-111); GLUCOSE 125 mg/dL (70-100); SODIUM 133 mmol/L (135-145)
[2019-08-30 16:49] LABS: ALBUMIN/GLOBULIN RATIO 1.3 (1.0-2.2); AST ASPARTATE AMINOTRANSFERASE < 10 IU/L (10-42); BILIRUBIN,TOTAL 0.2 mg/dL (0.2-1.0); BUN - BLOOD UREA NITROGEN 19 mg/dL (6-20); CREATININE 0.9 mg/dL (0.4-1.0); GFR - MDRD 61 (>89); LIPASE 27 U/L (22-51); TOTAL PROTEIN 7.2 g/dL (6.7-8.2)
[2019-08-30] MEDS ORDERED: IPRATROPIUM/ALBUTEROL 3 ML NEB INH STA (16:57)
[2019-08-30] MEDS ORDERED: KETOROLAC 30 MG/ML VIAL IVP STA (17:30)
[2019-08-30] MEDS ORDERED: methylPREDNISolone SUCCINATE 125 MG/2 ML VIAL IVP STA (17:44)
[2019-08-30 19:01] VITALS: BP 121/69
== END 2019-08-30 19:07 | disposition home or self-care (01) ==
LOC: EDUNIT# → ED 14:53
DX: J44.1 Chronic obstructive pulmonary disease with (acute) exacerbation (principal); R09.02 Hypoxemia; H66.003 Acute suppurative otitis media without spontaneous rupture of ear drum, bilateral; J81.1 Chronic pulmonary edema; R51 Headache; F17.200 Nicotine dependence, unspecified, uncomplicated; I10 Essential (primary) hypertension; Z79.82 Long term (current) use of aspirin
CPT/HCPCS: 36415; 71045; 80053; 82803; 83605; 83690; 85025; 94640; 96365; 96366; 96368; 96375; 99284; A9270

== ENCOUNTER 2019-09-11 11:55 | Outpatient (CLI) | payer MEDICARE, OTHER ==
--- NOTE | 2019-09-11 12:19 | XRAY Report ---
Reason: COPD with exacerbation Procedure Date: 09/11/2019 Accession Number: [id number] / [id number] Procedure: XRN - Chest 2 View X-Ray CPT Code: 90376 FULL RESULT: EXAM: CHEST RADIOGRAPHY EXAM DATE: 09/11/2019 12:11 PM HISTORY: COPD with exacerbation COMPARISON: CHEST 1 VIEW 08/30/2019 3:21 PM TECHNIQUE: Two Views FINDINGS: Lungs/Pleura: There is evidence of some mild chronic interstitial change. No acute infiltrate or evidence of edema. No pleural effusion. Cardiomediastinal silhouette: Unremarkable accounting for technique. Other: None. IMPRESSION: Mild chronic pulmonary changes. No acute abnormality. RADIA
== END 2019-09-11 11:56 | disposition home or self-care (01) ==
LOC: DI.N 11:55
PROVIDERS: ATTEND Nurse Practitioner Gerontology
DX: J44.1 Chronic obstructive pulmonary disease with (acute) exacerbation (principal)
CPT/HCPCS: 71046

== ENCOUNTER 2019-09-25 00:33 | Outpatient (CLI) | payer MEDICARE, OTHER | END 2019-09-25 00:34 | disposition critical access hospital (66) | LOC: EMS 00:33 | PROVIDERS: ATTEND Surgery | DX: R06.02 Shortness of breath (principal) ==

== ENCOUNTER 2019-09-25 00:51 | Observation (INO) | payer MEDICARE, OTHER ==
[2019-09-25 01:45] LABS: BASOPHILS # (AUTO) 0.1 10^3/uL (0.0-0.1); BASOPHILS % (AUTO) 0.6 %; EOSINOPHILS # (AUTO) 2.7 10^3/uL (0.0-0.7); EOSINOPHILS % (AUTO) 26.2 %; HGB - HEMOGLOBIN 12.1 g/dL (12.0-16.0); LYMPHOCYTES # (AUTO) 0.9 10^3/uL (1.5-3.5); LYMPHOCYTES % (AUTO) 8.6 %; MEAN CORPUSCULAR HGB CONC 34.1 g/dL (32.0-36.0); MEAN CORPUSCULAR VOLUME 93.9 fL (81.0-99.0); MEAN PLATELET VOLUME 8.7 fL (7.9-10.8); MONOCYTES # (AUTO) 0.4 10^3/uL (0.0-1.0); MONOCYTES % (AUTO) 3.8 %; NEUTROPHILS # (AUTO) 6.1 10^3/uL (1.5-6.6); NEUTROPHILS % (AUTO) 60.4 %; PLT - PLATELET COUNT 330 10^3/uL (130-450); RED BLOOD COUNT 3.78 10^6/uL (4.20-5.40); RED CELL DISTRIBUTION WIDTH 13.4 % (12.0-15.0); WHITE BLOOD COUNT 10.1 x10^3/uL (4.8-10.8)
[2019-09-25 01:56] LABS: ALBUMIN 3.5 g/dL (3.2-5.5); ALBUMIN/GLOBULIN RATIO 1.1 (1.0-2.2); BILIRUBIN,TOTAL 0.4 mg/dL (0.2-1.0); CALCIUM 8.9 mg/dL (8.5-10.3); CREATININE 0.5 mg/dL (0.4-1.0); TOTAL PROTEIN 6.6 g/dL (6.7-8.2)
--- NOTE | 2019-09-25 02:04 | ED Physician Documentation ---
PD HPI DYSPNEA - Stated complaint Stated Complaint: DYSPNEA - Chief complaint Chief Complaint: Resp - History obtained from History obtained from: Patient, EMS - History of Present Illness Timing - onset: How many weeks ago (gradually worsening over 1-2 weeks) Timing - duration: Weeks Timing - details: Gradual onset, Constant, Waxing and waning Pain level now: 4 (bilateral chest pain distinctly associated with coughing; also c/o back pain exacerbated with cough but subacute (has had this for weeks)) Improved by: O2, Rest Worsened by: Exertion, Coughing Associated symptoms: Cough, Wheezing, Chest pain / discomfort. No: Fever, Hemoptysis Similar symptoms before: Diagnosis (COPD) Recently seen: Emergency Dept (T+R earlier this month for same symptoms) - Additional information Additional information: BIBA for dyspnea. She has COPD but does not use oxygen at home. She says she has been gradually getting increasingly short of breath over past 1-2 weeks. She was T+R from this ED earlier this month for same symptoms, and was seen by PMD in f/u. She completed a course of prednisone approximately 7-10 days ago. Patient used her nebulizer (duoneb) at 7 PM and again at midnight without improvement. EMS gave duoneb and 125mg solumedrol IV. Review of Systems Constitutional: reports: Reviewed and negative Eyes: reports: Reviewed and negative Ears: reports: Reviewed and negative Nose: reports: Reviewed and negative Throat: reports: Reviewed and negative Cardiac: reports: Chest pain / pressure (with coughing). denies: Palpitations, Pedal edema Respiratory: reports: Dyspnea, Cough, Wheezing. denies: Hemoptysis GI: reports: Reviewed and negative : denies: Dysuria, Frequency Skin: reports: Reviewed and negative Musculoskeletal: reports: Back pain Neurologic: denies: Generalized weakness, Focal weakness, Numbness, Headache PD PAST MEDICAL HISTORY - Past Medical History Cardiovascular: Hypertension, High cholesterol Respiratory: COPD, Emphysema, Shortness of breath Endocrine/Autoimmune: None GI: GERD : Incontinence, Frequency HEENT: Chronic vision loss, Chronic sinusitis, Chronic hearing loss Psych: Depression, Anxiety Musculoskeletal: Osteoarthritis, Chronic back pain - Past Surgical History Past Surgical History: Yes General: Appendectomy 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: 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 Cardiovascular: AAA - Present Medications Home Medications: Ambulatory Orders Medication Instructions Recorded Confirmed Aspirin 162.5 mg PO DAILY 01/11/18 04/28/18 Atorvastatin Calcium 40 mg PO QPM 01/11/18 04/28/18 Ergocalciferol [Vitamin D2] 50,000 units PO Q7D 01/11/18 04/28/18 Lisinopril 40 mg PO DAILY 01/11/18 04/28/18 amLODIPine [Norvasc] 5 mg PO DAILY 01/11/18 04/28/18 Sertraline [Zoloft] 100 mg PO DAILY 02/21/18 04/28/18 Azithromycin [Zithromax] 250 mg PO DAILY #6 tablet 08/30/19 Codeine Phosphate/Guaifenesin 5 - 10 ml PO Q6HR PRN #240 ml 08/30/19 [Guaifen-Codeine 100-10 mg/5 ml] Ipratropium/Albuterol [Duoneb] 3 ml INH Q6H PRN #24 neb 08/30/19 predniSONE [Deltasone] 10 mg PO ONCE #26 tablet 08/30/19 - Allergies Allergies/Adverse Reactions: Allergies Allergy/AdvReac Type Severity Reaction Status Date / Time acetaminophen [From Vicodin] Allergy Itching Verified 09/25/19 00:57 alendronate sodium Allergy gi upset Verified 09/25/19 00:57 [From Fosamax] hydrocodone [From Vicodin] Allergy Itching Verified 09/25/19 00:57 raloxifene [From Evista] Allergy Rash Verified 09/25/19 00:57 tramadol Allergy Itching Verified 09/25/19 00:57 valacyclovir Allergy tongue Verified 09/25/19 00:57 swelling varenicline [From Chantix] Allergy paranoya Verified 09/25/19 00:57 - Social History Does the pt smoke?: Yes Smoking Status: Former smoker Does the pt drink ETOH?: No Does the pt have substance abuse?: No - Immunizations Immunizations are current?: No - POLST Patient has POLST: No POLST Status: Full Code PD ED PE NORMAL - Vitals Vital signs reviewed: Yes - General General: Alert and oriented X 3, Well developed/nourished, Other (frequent coughing during H+P; speaks in abbreviated sentences) - HEENT HEENT: Moist mucous membranes - Neck Neck: Supple, no meningeal sign - Cardiac Cardiac: No murmur PD ED PE EXPANDED - Cardiac Cardiac: Tachy, Regular Rhythm - Respiratory Respiratory: Wheezing (diffuse inspiratory and expiratory wheezing with diminished breath sounds), Decreased breath sounds Results - Vitals Vitals: Vital Signs - 24 hr 09/25/19 09/25/19 09/25/19 00:52 01:23 02:35 Temperature 36.8 C Heart Rate 101 H 99 85 Respiratory 22 24 17 Rate Blood Pressure 159/97 H 155/89 H 132/69 H O2 Saturation 96 97 94 09/25/19 09/25/19 09/25/19 03:14 03:21 03:58 Temperature Heart Rate 86 83 86 Respiratory 16 19 20 Rate Blood Pressure 139/74 H 144/76 H O2 Saturation 97 92 09/25/19 09/25/19 09/25/19 04:00 05:00 05:19 Temperature Heart Rate 85 88 Respiratory 40 H 21 13 Rate Blood Pressure 102/83 H 102/83 H O2 Saturation 82 L 93 93 Oxygen O2 Source Nasal cannula Oxygen Flow Rate 3 - EKG (time done) No standard instances Rate: Rate (enter#) (94) Rhythm: NSR Cashion: Normal Intervals: Normal NM QRS: Normal Ischemia: Normal ST segments Compare to prior EKG: Unchanged from prior EKG (no significant changes compared to 06/02/17) - Labs Labs: Laboratory Tests 09/25/19 09/25/19 09/25/19 01:34 01:34 01:34 WBC 10.1 RBC 3.78 L Hgb 12.1 Hct 35.5 L MCV 93.9 MCH 32.0 H MCHC 34.1 RDW 13.4 Plt Count 330 MPV 8.7 Neut # (Auto) 6.1 Lymph # (Auto) 0.9 L [place] # (Auto) 0.4 Eos # (Auto) 2.7 H Baso # (Auto) 0.1 Absolute Nucleated RBC 0.00 Nucleated RBC % 0.0 Sodium 129 L Potassium 3.8 Chloride 94 L Carbon Dioxide 27 Anion Gap 8.0 BUN 9 Creatinine 0.5 Estimated GFR (MDRD) 120 Glucose 141 H Calcium 8.9 Total Bilirubin 0.4 AST 25 ALT 36 Alkaline Phosphatase 116 Troponin I High Sens B-Natriuretic Peptide 103 H Total Protein 6.6 L Albumin 3.5 Globulin 3.1 Albumin/Globulin Ratio 1.1 Lipase 21 L 09/25/19 09/25/19 01:34 04:24 WBC RBC Hgb Hct MCV MCH MCHC RDW Plt Count MPV Neut # (Auto) Lymph # (Auto) [place] # (Auto) Eos # (Auto) Baso # (Auto) Absolute Nucleated RBC Nucleated RBC % Sodium Potassium Chloride Carbon Dioxide Anion Gap BUN Creatinine Estimated GFR (MDRD) Glucose Calcium Total Bilirubin AST ALT Alkaline Phosphatase Troponin I High Sens 35.0 H* 32.3 H* B-Natriuretic Peptide Total Protein Albumin Globulin Albumin/Globulin Ratio Lipase - Rads (name of study) chest xray Radiology: Prelim report reviewed, See rad report PD MEDICAL DECISION MAKING - ED course Complexity details: reviewed old records, reviewed results, re-evaluated patient, considered differential, d/w patient ED course: patient feels she remains significantly more dyspneic than her baseline despite three duoneb treatments and 125mg IV solumedrol CANDY POLISHER and albuterol neb in ED. Pulse ox maintains low/mid 90s with 3 liters oxygen, but she rapidly desaturates to 87-88% (at rest) when I turn the oxygen off. Nurse noted patient also became increasingly dyspneic when using bedside commode and her pulse ox dropped to 88% even with 3 [address] [place] oxygen in place. Departure - Departure Disposition: ED Place in Observation Clinical Impression: COPD exacerbation, Hypoxemia Condition: Stable Discharge Date/Time: 09/25/19 08:13
--- NOTE | 2019-09-25 02:31 | XRAY Report ---
Reason: chest pain Procedure Date: 09/25/2019 Accession Number: [id number] / [id number] Procedure: XR - Chest 1 View X-Ray CPT Code: 07388 FULL RESULT: EXAM: CHEST RADIOGRAPHY EXAM DATE: 09/25/2019 02:20 AM. CLINICAL HISTORY: Chest pain. COMPARISON: CHEST 2 VIEW 09/11/2019 12:18 PM CHEST 1 VIEW 08/30/2019 3:21 PM CHEST 2 VIEW 03/13/2019 11:28 AM. TECHNIQUE: 1 view. FINDINGS: Lungs/Pleura: Interstitial prominence throughout the lungs, stable compared to prior. No new focal opacities evident. No pleural effusion. No pneumothorax. Mediastinum: Stable cardiomediastinal contours. Other: Stable osseous structures. IMPRESSION: Stable CXR with interstitial prominence in the lungs. Findings may indicate chronic interstitial lung disease or mild interstitial edema. RADIA
[2019-09-25] MEDS ORDERED: ALBUTEROL NEB 2.5 MG/3 ML INH STA (03:07)
[2019-09-25] MEDS ORDERED: KETOROLAC 30 MG/ML VIAL IVP STA (03:58)
[2019-09-25] MEDS ORDERED: SODIUM CHLORIDE FLUSH 0.9% 10 ML SYRINGE IVP PRN (06:29)
[2019-09-25] MEDS ORDERED: KETOROLAC 15 MG/ML VIAL IVP PRN (06:33)
[2019-09-25] MEDS ORDERED: IPRATROPIUM/ALBUTEROL 3 ML NEB INH PRN (06:40)
--- NOTE | 2019-09-25 06:47 | HISTORY & PHYSICAL EXAMINATION ---
Chief Complaint - Chief Complaint Chief Complaint: dyspnea History of Present Illness - Admitted From Admitted From:: [facility] ED - History Obtained From Records Reviewed: yes History obtained from: patient - History of Present Illness HPI Comment/Other: Patient seen on 09/25/19 around 06:30 am Patient is a 79 y/o female who presented to the ED via EMS with dyspnea. Her symptoms started 2 weeks ago and has been getting progressively worse. Last night she states that she just could not breath. She denies any sick contact. She was given a dose of solumedrol and duoneb by EMS. In the ED it is reported that her O2Sat was 88% on room air. With ambulation even while on 2L nasal canula, her O2Sat dropped to the low 80's. As a result she is being presented for admission. She used to be on home oxygen at home but felt that she did not need it anymore and had the tank collected by the company. She denies chest pain, abd pain, nausea, vomiting, fever or chills. She complains of back for which she was given toradol. 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 She raised her children in [place], [place], and has [place] the [place] for the past [place] years. She has been to [place], her second marriage, for the past 41 years. Dax has multiple medical problems. The patient has 5 biological children. She admits to life long tobacco use, although she quit a few weeks ago. She denies alcohol or illicit drug use. - Substance History Use: Uses substance without health or social issues: Tobacco - POLST Patient has POLST: No POLST Status: Full Code Meds/Allgy - Home Medications Home Medications: Ambulatory Orders Medication Instructions Recorded Confirmed Aspirin 162.5 mg PO DAILY 01/11/18 04/28/18 Atorvastatin Calcium 40 mg PO QPM 01/11/18 04/28/18 Ergocalciferol [Vitamin D2] 50,000 units PO Q7D 01/11/18 04/28/18 Lisinopril 40 mg PO DAILY 01/11/18 04/28/18 amLODIPine [Norvasc] 5 mg PO DAILY 01/11/18 04/28/18 Sertraline [Zoloft] 100 mg PO DAILY 02/21/18 04/28/18 Azithromycin [Zithromax] 250 mg PO DAILY #6 tablet 08/30/19 Codeine Phosphate/Guaifenesin 5 - 10 ml PO Q6HR PRN #240 ml 08/30/19 [Guaifen-Codeine 100-10 mg/5 ml] Ipratropium/Albuterol [Duoneb] 3 ml INH Q6H PRN #24 neb 08/30/19 predniSONE [Deltasone] 10 mg PO ONCE #26 tablet 08/30/19 Azithromycin 250 mg PO DAILY 5 Days #6 tab 09/25/19 Methylprednisolone [Medrol Dose 1 each PO .PACKAGEINSTRUCTIONS 6 09/25/19 Pack] Days #1 each - Allergies Allergies/Adverse Reactions: Allergies Allergy/AdvReac Type Severity Reaction Status Date / Time acetaminophen [From Vicodin] Allergy Itching Verified 09/25/19 00:57 alendronate sodium Allergy gi upset Verified 09/25/19 00:57 [From Fosamax] hydrocodone [From Vicodin] Allergy Itching Verified 09/25/19 00:57 raloxifene [From Evista] Allergy Rash Verified 09/25/19 00:57 tramadol Allergy Itching Verified 09/25/19 00:57 valacyclovir Allergy tongue Verified 09/25/19 00:57 swelling varenicline [From Chantix] Allergy paranoya Verified 09/25/19 00:57 Review of Systems - Constitutional Constitutional: denies: Fatigue, Fever, Chills, Weakness - Eyes Eyes: denies: Pain, Vision loss, Dipolpia - Ears, Nose & Throat Ears, Nose & Throat: denies: Vertigo, Sore throat, Hoarseness - Cardiovascular Cariovascular: reports: Exertional dyspnea. denies: Irregular heart rate, Palpitations, Chest pain, Edema, Lightheadedness, Syncope - Respiratory Respiratory: reports: Wheezing (mild expiratory), SOB with exertion. denies: Cough, Sputum production - Gastrointestinal Gastrointestinal: denies: Abdominal pain, Abdominal distention, Constipation, Diarrhea, Nausea, Vomiting, Reflux/heartburn - Genitourinary Genitourinary: denies: Dysuria, Frequency, Urgency, Hematuria - Musculoskeletal Musculoskeletal: reports: Back pain. denies: Muscle pain, Muscle aches, Stiffness - Integumentary Integumentary: denies: Rash, Pruritis, Lesions, Dryness - Neurological Neurological: denies: General weakness, Focal weakness, Headache, Dizziness - Psychiatric Psychiatric: reports: Anxiety. denies: Depression - Endocrine Endocrine: denies: Polyuria, Polydypsia - Hematologic/Lymphatic Hematologic/Lymphatic: denies: Anemia, Bruising Prior Level of Functionality: She is independent of activities of daily living Exam - Vital Signs Vital Signs: Vital Signs x48h Temp Pulse Resp BP Pulse Ox 09/25/19 05:19 88 13 102/83 H 93 09/25/19 05:00 85 21 102/83 H 93 09/25/19 04:00 40 H 82 L 09/25/19 03:58 86 20 144/76 H 92 09/25/19 03:21 83 19 139/74 H 97 09/25/19 03:14 86 16 09/25/19 02:35 85 17 132/69 H 94 09/25/19 01:23 99 24 155/89 H 97 09/25/19 00:52 36.8 C 101 H 22 159/97 H 96 - Physical Exam General Appearance: positive: Alert, Moderate distress, Anxious Eyes Bilateral: positive: Normal inspection, PERRL, EOMI ENT: positive: ENT inspection nml, Pharynx nml, No signs of dehydration Neck: positive: Nml inspection, Thyroid nml, No JVD, Trachea midline Respiratory: positive: Wheezes (mild expiratory wheez). negative: Chest non- tender, No respiratory distress, Breath sounds nml Cardiovascular: positive: Regular rate & rhythm, No murmur, No gallop Abdomen: positive: Non-tender, No organomegaly, Nml bowel sounds, No distention. negative: Guarding, Rebound Back: positive: Nml inspection Skin: positive: Color nml, No rash, Warm, Dry Neurologic/Psychiatric: positive: Oriented x3, CN's nml (2-12), Motor nml, Sensation nml Conclusion/Plan - Problem List (1) COPD exacerbation Conclusion/Plan: Mild Solumedrol 125mg IV tid ordered Duoneb q4hrs prn Oxygen Desaturation study ordered for home oxygen Patient used to be on oxygen but felt she didn't need it after a while so had the tank returned to the [employer] (2) Hypertension Conclusion/Plan: On amlodopine and lisinopril (3) Hyperlipidemia Conclusion/Plan: On atorvastatin (4) GERD (gastroesophageal reflux disease) Conclusion/Plan: Protonix ordered (5) Anxiety and depression Conclusion/Plan: On zoloft (6) Osteoarthritis Conclusion/Plan: Toradol ordered - Lab Results Fish Bones: 09/25/19 01:34 09/25/19 01:34 Core Measures - Anticipated LOS I expect patient to be DC'd or transferred within 96 hours.: Yes - DVT/VTE - Prophylaxis VTE/DVT Device ordered at admit?: Yes VTE/DVT Prophylaxis med ordered at admit?: Yes
[2019-09-25] MEDS ORDERED: methylPREDNISolone SUCCINATE 125 MG/2 ML VIAL IVP SCH (07:00)
[2019-09-25] MEDS ORDERED: PANTOPRAZOLE 40 MG VIAL IVP SCH (07:00)
[2019-09-25 08:52] VITALS: BP 157/80
[2019-09-25] MEDS ORDERED: SODIUM CHLORIDE FLUSH 0.9% 10 ML SYRINGE IVP SCH (09:00)
[2019-09-25] MEDS ORDERED: POLYETHYLENE GLYCOL 3350 17 GM PACKET PO SCH (09:00)
--- NOTE | 2019-09-25 10:39 | Discharge Plan ---
Discharge Plan Problem Reviewed?: Yes Disposition: Home, Self Care Condition: Stable Prescriptions: Methylprednisolone [Medrol Dose Pack] 1 each PO .PACKAGEINSTRUCTIONS 6 Days #1 each Diet: Regular Activity Restrictions: Activity as Tolerated Shower Restrictions: No Driving Restrictions: No Health Concerns: You were placed in observation in the hospital because you presented as being short of breath on top of your chronic shortness fo breath from emphysema/COPD. You had been on oxygen in the past but were able to return it once you felt you no longer needed it. This time, you did not have a cold or anyone else who was sick, but have been progressively shortness of breath for the last 2 weeks. We found you to have a low oxygen with mild exacerbation of COPD/emphysema. Chest xray did not show pneumonia. Plan of Treatment: 1. You were placed on intravenous steroid here and will continue on steroids by mouth on a tapering schedule once you get home. A medrol dose pack was e scribed to [employer]. 2. you will take azithromycin for 5 days. Even though we did not find pneumonia or bronchitis, COPD/emphysema patients sometimes can delay another admission to the hospital if they take this antibiotic. 3. we have checked your oxygen level and you do need oxygen at home. We have prescribed you some: 2 liters at rest and 3 liters with walk or exertion in your home. Care Goals: 1. Please see your primary care provider, Jabier Guerrero/Anila Neil in the next week. 2. I would recommend you have Mr. Guerrero/Ms. Neil start you on a long acting bronchodilator for you lungs as opposed to just a shorting acting like duoneb. Ask him to change you to Spriva twice a day and albuterol 4 times a day. 3. Please ask to be referred for pulmonary function studies with DLCO which measures how well you breath and how well oxygen does or does not get into your lungs. 4. Take this piece of paper to your next visit so that they can read these goals as well. Assessment: Patient expresses understanding of goals and will see Mr. Guerrero in followup Follow-Up Care: [facility] - Pulmonary No Smoking: If you smoke, Please STOP! Call for help. Follow-up with: Anila Manzano ARNP [Primary Care Provider] -
--- NOTE | 2019-09-25 11:57 | DISCHARGE SUMMARY ---
"Discharge Summary Admit Date: 09/24/19 Discharge Date: 09/25/19 Discharging Provider: Smiley Gonsales MD Primary Care Provider: ROBERTA Casiano Code Status: Attempt Resuscitation Condition at Discharge: Stable Discharge Disposition: 01 Home, Self Care - DIAGNOSES Discharge Diagnoses with Status of Each Condition: 1. Acute on chronic respiratory failure with hypoxia 1. COPD with acute exacerbation 3. Hypertension 4. Hyperlipidemia 5. Gastroesophageal Reflux disease 6. anxiety disorder 7. Hyponatremia 8. chronic back pain - HPI History of Present Illness: Patient seen on 09/25/19 around 06:30 am Patient is a 79 y/o female who presented to the ED via EMS with dyspnea. Her symptoms started 2 weeks ago and has been getting progressively worse. Last night she states that she just could not breath. She denies any sick contact. She was given a dose of solumedrol and duoneb by EMS. In the ED it is reported that her O2Sat was 88% on room air. With ambulation even while on 2L nasal canula, her O2Sat dropped to the low 80's. As a result she is being presented for admission. She used to be on home oxygen at home but felt that she did not need it anymore and had the tank collected by the company. She denies chest pain, abd pain, nausea, vomiting, fever or chills. She complains of back for which she was given toradol. Troponins are negative and she had mild hyponatremia on admit. Chest xray did not show infiltrate. WBC was normal. History - Past Medical History Cardiovascular: reports: Hypertension, High cholesterol Respiratory: reports: COPD, Emphysema, Shortness of breath Endocrine/Autoimmune: reports: None GI: reports: GERD : reports: Incontinence, Frequency HEENT: reports: Chronic vision loss, Chronic sinusitis, Chronic hearing loss Psych: reports: Depression, Anxiety Musculoskeletal: reports: Osteoarthritis, Chronic back pain - CONSULTS | PROCEDURES Procedures: Chest x ray with prominent interstitial lung disease. No acute infiltrate. - HOSPITAL COURSE Hospital Course: She was started on intravenous steroids and transitioned to a tapering oral dose for her to complete in the outpatient setting. She was also started on prophylaxtic azithromycin to complete as well. Studies show reduced readmission rates of on maintenance medication but I will ask her primary care provider to make that decision. I have also recommended that she begin on spiriva twice a day with no ipatropium in her nebulizer. Change to albuterol 4 times a day. I have recommened outpatient pulmonary function studies with DLCO. She will need maintenance oxygen. She was hypoxic at rest, room air with O2 sats at 86%. At rest with O2 at 2 lpm via nasal cannula her sats improved to 92-93%. With exertion, she needed 3 lpm to maintain her sats at 91% at 50 feet. I am orderin g home O2 at 2 lpm via nasal cannula continuously and 3 lpm with ambulation. During her short observation stay, her chronic diseases of GERD, HPL, HTN were treated with her outpatient medication doses. Anxiety was controlled. She did have low sodium which should be checked by her PCP in the outpatient setting in her next visit. She complains of chronic back pain and wanted stronger medication that tylenol or ibuprofen. I have asked her to address that issue with her PCP as well so that other modalities can be discussed. She specifically requested stronger pain medications. - ALLERGIES Allergies/Adverse Reactions: Allergies Allergy/AdvReac Type Severity Reaction Status Date / Time acetaminophen [From Vicodin] Allergy Itching Verified 09/25/19 00:57 alendronate sodium Allergy gi upset Verified 09/25/19 00:57 [From Fosamax] hydrocodone [From Vicodin] Allergy Itching Verified 09/25/19 00:57 raloxifene [From Evista] Allergy Rash Verified 09/25/19 00:57 tramadol Allergy Itching Verified 09/25/19 00:57 valacyclovir Allergy tongue Verified 09/25/19 00:57 swelling varenicline [From Chantix] Allergy paranoya Verified 09/25/19 00:57 - MEDICATIONS Home Medications: Ambulatory Orders Medication Instructions Recorded Confirmed Aspirin 162.5 mg PO DAILY 01/11/18 04/28/18 Atorvastatin Calcium 40 mg PO QPM 01/11/18 04/28/18 Ergocalciferol [Vitamin D2] 50,000 units PO Q7D 01/11/18 04/28/18 Lisinopril 40 mg PO DAILY 01/11/18 04/28/18 amLODIPine [Norvasc] 5 mg PO DAILY 01/11/18 04/28/18 Sertraline [Zoloft] 100 mg PO DAILY 02/21/18 04/28/18 Azithromycin [Zithromax] 250 mg PO DAILY #6 tablet 08/30/19 Codeine Phosphate/Guaifenesin 5 - 10 ml PO Q6HR PRN #240 ml 08/30/19 [Guaifen-Codeine 100-10 mg/5 ml] Ipratropium/Albuterol [Duoneb] 3 ml INH Q6H PRN #24 neb 08/30/19 predniSONE [Deltasone] 10 mg PO ONCE #26 tablet 08/30/19 Azithromycin 250 mg PO DAILY 5 Days #6 tab 09/25/19 Methylprednisolone [Medrol Dose 1 each PO .PACKAGEINSTRUCTIONS 6 09/25/19 Pack] Days #1 each - PHYSICAL EXAM AT DISCHARGE General Appearance: positive: No acute distress, Alert, Mild distress (she is tachypneic with speaking to me but states this is her baseline) Eyes Bilateral: positive: PERRL ENT: positive: Pharynx nml Neck: positive: No JVD. negative: Stiff neck, Carotid bruit Respiratory: positive: Chest non-tender, Wheezes (at the end of exhalation, poor airway excursion overall but she feels better than when she was in the OR. ), Other (At rest and sleep, no use of accessory muscles and is comfortable. When she wakes to speak or to get up out of bed, rate goes from 16 to 24, but again, she states this is her baseline. The subjective sense of TREJO is much better now that she has O2 and steroids. ). negative: Rales, Rhonchi Cardiovascular: positive: Regular rate & rhythm, Systolic murmur. negative: Gallop/S4, Friction rub Abdomen: positive: Non-tender, No organomegaly, Nml bowel sounds, No distention Skin: positive: Warm, Dry Extremities: positive: No pedal edema Neurologic/Psychiatric: positive: Oriented x3, CN's nml (2-12), Motor nml - LABS Result Diagrams: 09/25/19 01:34 09/25/19 01:34"
== END 2019-09-25 11:56 | disposition home or self-care (01) ==
LOC: EDUNIT# → ED 00:51 → OBS 06:29 → MS2 07:29
PROVIDERS: ADMIT Internal Medicine; ATTEND Nurse Practitioner Gerontology
DX: J96.21 Acute and chronic respiratory failure with hypoxia (principal); J98.2 Interstitial emphysema; E87.1 Hypo-osmolality and hyponatremia; I10 Essential (primary) hypertension; E78.5 Hyperlipidemia, unspecified; K21.9 Gastro-esophageal reflux disease without esophagitis; F41.9 Anxiety disorder, unspecified; F32.9 Major depressive disorder, single episode, unspecified; R32 Unspecified urinary incontinence; R35.0 Frequency of micturition; J32.9 Chronic sinusitis, unspecified; G89.29 Other chronic pain; M54.9 Dorsalgia, unspecified; M19.90 Unspecified osteoarthritis, unspecified site; Z99.81 Dependence on supplemental oxygen; H54.7 Unspecified visual loss; H91.90 Unspecified hearing loss, unspecified ear; Z91.19 Patient's noncompliance with other medical treatment and regimen; Z79.82 Long term (current) use of aspirin; Z96.649 Presence of unspecified artificial hip joint; Z87.891 Personal history of nicotine dependence
CPT/HCPCS: 36415; 71045; 80053; 83690; 83880; 84484; 85025; 93005; 94640; 94761; 96374; 96375; 96376; 99284

== ENCOUNTER 2019-09-25 20:44 | Outpatient (CLI) | payer MEDICARE, OTHER | END 2019-09-25 20:45 | disposition critical access hospital (66) | LOC: EMS 20:44 | PROVIDERS: ATTEND Surgery | DX: R06.02 Shortness of breath (principal); R53.83 Other fatigue; F41.9 Anxiety disorder, unspecified | CPT/HCPCS: A0425; A0427 ==

== ENCOUNTER 2019-09-25 21:01 | Inpatient (IN) | payer MEDICARE, OTHER ==
[2019-09-25 21:25] LABS: BASOPHILS % (AUTO) 0.4 %; MEAN PLATELET VOLUME 8.7 fL (7.9-10.8); RED CELL DISTRIBUTION WIDTH 13.6 % (12.0-15.0)
--- NOTE | 2019-09-25 21:26 | ED Physician Documentation ---
PD HPI DYSPNEA - Stated complaint Stated Complaint: SOA, - Chief complaint Chief Complaint: Resp - History obtained from History obtained from: Patient - History of Present Illness Timing - onset: Today Timing - onset during: Rest Timing - details: Gradual onset Improved by: No: O2, BiPAP / CPAP, Nitro, Lasix, Inhaler/neb, Steroids, Epi pen, Benadryl, Rest, Sitting up, Other Recently seen: Admitted - Additional information Additional information: This is a 79-year-old woman who was just admitted today for her emphysema and was discharged sometime afternoon. She said by the time she got home she was feeling short of breath and now cannot breathe right. She used her DuoNeb nebulizer at home did not get any relief. They brought her home oxygen this afternoon and that did not help so she called the ambulance and was brought in for reevaluation. She received 2 albuterol's in route as well as a DuoNeb and is still in respiratory distress. She is not sure whether or not she is on steroids. She lives at home with her and daughter. She says she is never had to be intubated for COPD in the past. She is coughing and bringing up some phlegm but does not see any color to it. She has chest and back pain hurts whenever she breathes. Denies any peripheral edema. Denies history of heart disease. Review of Systems Unable to obtain: Other (To presentation and respiratory distress) Cardiac: reports: Chest pain / pressure. 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 Cardiovascular: AAA HEENT: Tonsil/Adenoidectomy - Present Medications Home Medications: Ambulatory Orders Medication Instructions Recorded Confirmed Aspirin 162.5 mg PO DAILY 01/11/18 09/26/19 Atorvastatin Calcium 40 mg PO QPM 01/11/18 09/26/19 Ergocalciferol [Vitamin D2] 50,000 units PO Q7D 01/11/18 09/26/19 Lisinopril 40 mg PO DAILY 01/11/18 09/26/19 Ipratropium/Albuterol [Duoneb] 3 ml INH Q6H PRN #24 neb 08/30/19 09/26/19 Azithromycin 250 mg PO DAILY 5 Days #6 tab 09/25/19 Methylprednisolone [Medrol Dose 1 each PO .PACKAGEINSTRUCTIONS 6 09/25/19 Pack] Days #1 each Albuterol Sulfate [Proair Hfa 2 puffs INH Q4H PRN 09/26/19 09/26/19 Inhaler] Amlodipine Besylate 10 mg PO DAILY 09/26/19 09/26/19 Budesonide [Budesonide EC] 9 mg PO DAILY 09/26/19 09/26/19 Fluticasone Propion/Salmeterol 1 puffs INH BID 09/26/19 09/26/19 [Wixela 500-50 Inhub] Potassium Chloride [Klor-Con 10] 10 meq PO DAILY 09/26/19 09/26/19 - Allergies Allergies/Adverse Reactions: Allergies Allergy/AdvReac Type Severity Reaction Status Date / Time acetaminophen [From Vicodin] Allergy Itching Verified 09/25/19 00:57 alendronate sodium Allergy gi upset Verified 09/25/19 00:57 [From Fosamax] hydrocodone [From Vicodin] Allergy Itching Verified 09/25/19 00:57 raloxifene [From Evista] Allergy Rash Verified 09/25/19 00:57 tramadol Allergy Itching Verified 09/25/19 00:57 valacyclovir Allergy tongue Verified 09/25/19 00:57 swelling varenicline [From Chantix] Allergy paranoya Verified 09/25/19 00:57 - Social History Does the pt smoke?: Yes Smoking Status: Former smoker Does the pt drink ETOH?: No Does the pt have substance abuse?: No - Immunizations Immunizations are current?: No - POLST Patient has POLST: No POLST Status: Full Code PD ED PE NORMAL - Vitals Vital signs reviewed: Yes - General General: Alert and oriented X 3, Well developed/nourished, Other (She is sitting upright grabbing on the side rails of the bed in gasping for air with paradoxical movement of her chest.) - HEENT HEENT: Other (Dry mucous membranes) - Neck Neck: No adenopathy - Cardiac Cardiac: No murmur, Other (Tachycardic) - Respiratory Respiratory: Other (Respiratory distress with diminished breath sounds and inspiratory and expiratory wheezing heard throughout the lung [place] Speaking in just 1-2 word sentences) - Abdomen Abdomen: Normal bowel sounds - Derm Derm: Other (Pale) - Extremities Extremities: No edema - Neuro Neuro: Alert and oriented X 3 Results - Vitals Vitals: Vital Signs - 24 hr 09/25/19 09/25/19 09/25/19 22:24 22:30 23:00 Heart Rate 104 H 98 93 Respiratory 16 14 Rate Blood Pressure 146/77 H 124/68 O2 Saturation 92 15 L Oxygen O2 Source BIPAP Oxygen Flow Rate 3 - EKG (time done) 2113 Rate: Rate (enter#) (107) Rhythm: Sinus tachycardia, Other (PVC) Intervals: Other (Narrow QRS) Ischemia: ST depression (Minimal V4-V6) Other comments: Other comments (Artifact) Compare to prior EKG: Old EKG unavailable - Labs Labs: Laboratory Tests 09/25/19 09/25/19 09/25/19 21:20 21:20 21:45 WBC 16.0 H RBC 3.93 L Hgb 12.5 Hct 37.5 MCV 95.4 MCH 31.8 H MCHC 33.3 RDW 13.6 Plt Count 363 MPV 8.7 Neut # (Auto) Not Reportable Lymph # (Auto) Not Reportable [place] # (Auto) Not Reportable Eos # (Auto) Not Reportable Baso # (Auto) Not Reportable Absolute Nucleated RBC Not Reportable Total Counted 100 Band Neuts % (Manual) 4 Abnorm Lymph % (Manual) 0 Nucleated RBC % Not Reportable Neutrophils # (Manual) 12.8 H Lymphocytes # (Manual) 0.6 L Monocytes # (Manual) 0.5 Eosinophils # (Manual) 2.1 H Basophils # (Manual) 0.0 Differential Comment MANUAL DIFFERENTIAL Platelet Estimate NORMAL (130-450,000) Platelet Morphology NORMAL APPEARANCE RBC Morph Micro Appear NORMAL APPEARANCE Bld Gas Analysis Time 2201 Sample Site RIGHT RADIAL ABG pH 7.28 L ABG pCO2 61 H* ABG pO2 77 L ABG HCO3 28.6 H ABG Total CO2 30.0 H ABG O2 Saturation 93 L ABG Base Excess 2.0 Jesse Test POSITIVE O2 Delivery Device NASAL CANNULA O2 Liters/Min 3.00 FiO2 EPAP IPAP Sodium 130 L Potassium 4.2 Chloride 96 L Carbon Dioxide 26 Anion Gap 8.0 BUN 10 Creatinine 0.4 Estimated GFR (MDRD) 155 Glucose 131 H Calcium 8.9 Total Bilirubin 0.4 AST 54 H ALT 61 H Alkaline Phosphatase 132 H Total Protein 7.1 Albumin 3.7 Globulin 3.4 Albumin/Globulin Ratio 1.1 Lipase 22 09/25/19 23:30 WBC RBC Hgb Hct MCV MCH MCHC RDW Plt Count MPV Neut # (Auto) Lymph # (Auto) [place] # (Auto) Eos # (Auto) Baso # (Auto) Absolute Nucleated RBC Total Counted Band Neuts % (Manual) Abnorm Lymph % (Manual) Nucleated RBC % Neutrophils # (Manual) Lymphocytes # (Manual) Monocytes # (Manual) Eosinophils # (Manual) Basophils # (Manual) Differential Comment Platelet Estimate Platelet Morphology RBC Morph Micro Appear Bld Gas Analysis Time 2342 Sample Site RIGHT RADIAL ABG pH 7.35 ABG pCO2 44 ABG pO2 70 L ABG HCO3 23.9 ABG Total CO2 25.2 ABG O2 Saturation 93 L ABG Base Excess -1.8 Jesse Test POSITIVE O2 Delivery Device BiPAP O2 Liters/Min FiO2 0.30 EPAP 5 IPAP 10 Sodium Potassium Chloride Carbon Dioxide Anion Gap BUN Creatinine Estimated GFR (MDRD) Glucose Calcium Total Bilirubin AST ALT Alkaline Phosphatase Total Protein Albumin Globulin Albumin/Globulin Ratio Lipase - Rads (name of study) cxr Radiology: See rad report PD MEDICAL DECISION MAKING - ED course Complexity details: reviewed old records, re-evaluated patient, d/w patient ED course: 2328: Patient was acidotic with a PCO2 of 61 on arrival here she was given continuous albuterol and I elected to go ahead and place her on BiPAP. We are waiting for the repeat blood gas. When I went by the room she still very somnolent but says that she is feeling a little bit better. Lungs are more clear. Will discuss with the hospitalist regarding admission. Repeat blood glass showed a pH of 7.35 and PCO2 of 44.2. Her O2 was less than 70 so we increased her FiO2. Hospitalist did agree to accept the patient for admission. Departure - Departure Disposition: [facility] DC/Xfer Clinical Impression: Respiratory failure Qualifiers: Chronicity: acute Respiratory failure complication: hypoxia and hypercapnia Qualified Code(s): J96.01 - Acute respiratory failure with hypoxia COPD (chronic obstructive pulmonary disease) Qualifiers: COPD type: COPD with acute exacerbation Qualified Code(s): J44.1 - Chronic obstructive pulmonary disease with (acute) exacerbation Condition: Fair Discharge Date/Time: 09/26/19 01:40
[2019-09-25 21:28] LABS: EOSINOPHILS % (AUTO) 6.4 %; HGB - HEMOGLOBIN 12.5 g/dL (12.0-16.0); LYMPHOCYTES % (AUTO) 5.6 %; MEAN CORPUSCULAR HEMOGLOBIN 31.8 pg (27.0-31.0); MEAN CORPUSCULAR HGB CONC 33.3 g/dL (32.0-36.0); MEAN CORPUSCULAR VOLUME 95.4 fL (81.0-99.0); MONOCYTES % (AUTO) 5.1 %; NEUTROPHILS % (AUTO) 81.8 %; PLT - PLATELET COUNT 363 10^3/uL (130-450); RED BLOOD COUNT 3.93 10^6/uL (4.20-5.40)
[2019-09-25 21:31] LABS: ABNORMAL LYMPHS % (MANUAL) 0 %
[2019-09-25] MEDS ORDERED: ALBUTEROL NEB 2.5 MG/3 ML INH STA (21:34)
[2019-09-25 21:44] LABS: ALBUMIN 3.7 g/dL (3.2-5.5); ALBUMIN/GLOBULIN RATIO 1.1 (1.0-2.2); BILIRUBIN,TOTAL 0.4 mg/dL (0.2-1.0); CALCIUM 8.9 mg/dL (8.5-10.3); CREATININE 0.4 mg/dL (0.4-1.0); TOTAL PROTEIN 7.1 g/dL (6.7-8.2)
--- NOTE | 2019-09-25 21:58 | XRAY Report ---
Reason: SOA, COPD Procedure Date: 09/25/2019 Accession Number: [id number] / [id number] Procedure: XR - Chest 1 View X-Ray CPT Code: 73189 FULL RESULT: EXAM: CHEST RADIOGRAPHY EXAM DATE: 09/25/2019 09:45 PM. CLINICAL HISTORY: Shortness of air, COPD. COMPARISON: CHEST 1 VIEW 09/25/2019 1:58 AM CHEST 2 VIEW 05/10/2018 3:34 PM. TECHNIQUE: 1 view. FINDINGS: Lungs/Pleura: There is pulmonary venous distention, however, no edema or focal airspace consolidation. No pleural effusion or pneumothorax. Mediastinum: Within exam limitations, the cardiomediastinal contour is normal. Other: None. IMPRESSION: Pulmonary vascular congestion without edema or focal airspace disease. RADIA
[2019-09-25 22:02] LABS: ABG HCO3 28.6 mmol/L (22.0-26.0); ABG OXYGEN SATURATION 93 % (94-98); ABG PH 7.28 (7.35-7.45); ABG PO2 77 mmHg (80-100); ALLEN TEST POSITIVE
[2019-09-25 22:03] LABS: ABG PCO2 61 mmHg (34-45)
[2019-09-25 22:07] LABS: BAND NEUTROPHILS % (MANUAL) 4 %; DIFFERENTIAL COMMENT MANUAL DIFFERENTIAL; EOSINOPHILS # (MANUAL) 2.1 10^3/uL (0-0.7); LYMPHOCYTES # (MANUAL) 0.6 10^3/uL (1.5-3.5); LYMPHOCYTES % (MANUAL) 4 %; MONOCYTES # (MANUAL) 0.5 10^3/uL (0.0-1.0); PLATELET ESTIMATE, MANUAL NORMAL (130-450,000) (NORMAL); PLATELET MORPHOLOGY NORMAL APPEARANCE (NORMAL); RBC MORPHOLOGY (MULTIPLE) NORMAL APPEARANCE (NORMAL)
[2019-09-25] MEDS ORDERED: ALBUTEROL NEB 2.5 MG/3 ML INH ONE (22:10)
[2019-09-25 23:39] LABS: ABG BASE EXCESS -1.8 mmol/L (-2.0-3.0); ABG HCO3 23.9 mmol/L (22.0-26.0); ABG OXYGEN SATURATION 93 % (94-98); ABG PCO2 44 mmHg (34-45); ABG PH 7.35 (7.35-7.45); ABG PO2 70 mmHg (80-100); ABG TCO2 25.2 MMOL/L (21.0-29.0); ALLEN TEST POSITIVE
[2019-09-26] MEDS ORDERED: IPRATROPIUM/ALBUTEROL 3 ML NEB INH PRN (00:03)
--- NOTE | 2019-09-26 02:08 | HISTORY & PHYSICAL EXAMINATION ---
Chief Complaint - Chief Complaint Chief Complaint: dyspnea History of Present Illness - Admitted From Admitted From:: [facility] - History Obtained From Records Reviewed: yes History obtained from: patient - History of Present Illness HPI Comment/Other: Patient seen on 09/26/19 around 0045 am Patient is a 79 y/o female who presented to the ED with dyspnea. In the ED it is described that she was seated "bolt upright" and gasping for air. She had been admitted earlier in the day with hypoxia with ambulation and dyspnea consistent with mild COPD exacerbation.. She received a couple of breathing treatments and solumedrol doses. She underwent an oxygen desaturation study which showed she was 86% on room air at rest, 92-93% on 2 lpm via nasal canula and 91% on 3lpm with ambulation at 50ft. She was discharged home with a prescription for oxygen . She said she was doing well when she got home. She was able to eat some of her dinner, then palomo to her room for a nap. Shortly after that she started experiencing dyspnea. She used her duoneb nebulizer at home with no relief. Her oxygen was brought this afternoon but she did not get any relief from using it. As a result EMS was. She was given 2 albuterol treatments enroute. She also complained of chest and back pain whenever she breaths. She had a productive cough which was clear Chest xray showed pulmonary vascular congestion without edema. She was found to have a pH of 7.28, pCO2 of 61 and a pO2 of 77. As a result she was placed on a bipap. Repeat ABG showed a pH of 7.35, pCO2 of 44 and pO2 of 70. Consequently she was presented for admission. At bedside she reports significant improvement in her breathing. On auscultation, she rather sounds coarse/rhonchous. She denied abd pain, n/v/d, fever or chills. 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 She raised her children in [place], [place], and [place]. She has been to [place], her second marriage, for the past 41 years. Dax has multiple medical problems. The patient has 5 biological children. She admits to life long tobacco use, although she quit a few weeks ago. She denies alcohol or illicit drug use. - Substance History Use: Uses substance without health or social issues: Tobacco - POLST Patient has POLST: No POLST Status: Full Code Meds/Allgy - Home Medications Home Medications: Ambulatory Orders Medication Instructions Recorded Confirmed Aspirin 162.5 mg PO DAILY 01/11/18 04/28/18 Atorvastatin Calcium 40 mg PO QPM 01/11/18 04/28/18 Ergocalciferol [Vitamin D2] 50,000 units PO Q7D 01/11/18 04/28/18 Lisinopril 40 mg PO DAILY 01/11/18 04/28/18 amLODIPine [Norvasc] 5 mg PO DAILY 01/11/18 04/28/18 Sertraline [Zoloft] 100 mg PO DAILY 02/21/18 04/28/18 Azithromycin [Zithromax] 250 mg PO DAILY #6 tablet 08/30/19 Codeine Phosphate/Guaifenesin 5 - 10 ml PO Q6HR PRN #240 ml 08/30/19 [Guaifen-Codeine 100-10 mg/5 ml] Ipratropium/Albuterol [Duoneb] 3 ml INH Q6H PRN #24 neb 08/30/19 predniSONE [Deltasone] 10 mg PO ONCE #26 tablet 08/30/19 Azithromycin 250 mg PO DAILY 5 Days #6 tab 09/25/19 Methylprednisolone [Medrol Dose 1 each PO .PACKAGEINSTRUCTIONS 6 10/28/19 Pack] Days #1 each - Allergies Allergies/Adverse Reactions: Allergies Allergy/AdvReac Type Severity Reaction Status Date / Time acetaminophen [From Vicodin] Allergy Itching Verified 09/25/19 00:57 alendronate sodium Allergy gi upset Verified 09/25/19 00:57 [From Fosamax] hydrocodone [From Vicodin] Allergy Itching Verified 09/25/19 00:57 raloxifene [From Evista] Allergy Rash Verified 09/25/19 00:57 tramadol Allergy Itching Verified 09/25/19 00:57 valacyclovir Allergy tongue Verified 09/25/19 00:57 swelling varenicline [From Chantix] Allergy paranoya Verified 09/25/19 00:57 Review of Systems - Constitutional Constitutional: reports: Poor appetite. denies: Fatigue, Fever, Chills - Eyes Eyes: denies: Blurred vision, Dipolpia - Ears, Nose & Throat Ears, Nose & Throat: denies: Nasal pain, Sore throat, Hoarseness - Cardiovascular Cariovascular: reports: Chest pain, Exertional dyspnea. denies: Irregular heart rate, Palpitations, Edema, Lightheadedness, Syncope - Respiratory Respiratory: reports: Cough, Sputum production, Wheezing, SOB at rest, SOB with exertion - Gastrointestinal Gastrointestinal: denies: Abdominal pain, Abdominal distention, Constipation, Diarrhea, Nausea, Vomiting - Genitourinary Genitourinary: denies: Dysuria, Frequency, Urgency, Hematuria - Musculoskeletal Musculoskeletal: reports: Back pain. denies: Muscle pain, Muscle aches - Integumentary Integumentary: denies: Rash, Pruritis, Lesions - Neurological Neurological: denies: General weakness, Focal weakness, Headache, Dizziness - Psychiatric Psychiatric: reports: Depression, Anxiety - Endocrine Endocrine: denies: Polyuria, Polydypsia - Hematologic/Lymphatic Hematologic/Lymphatic: denies: Anemia, Petechiae Prior Level of Functionality: She is independent of activities of daily living Exam - Vital Signs Vital Signs: Vital Signs x48h Temp Pulse Resp BP Pulse Ox 09/26/19 01:33 81 09/25/19 23:00 93 14 124/68 15 L 09/25/19 22:30 98 16 146/77 H 92 09/25/19 22:24 104 H 09/25/19 22:08 100 30 H 136/81 H 97 09/25/19 21:38 106 H 26 H 164/140 H 92 09/25/19 21:34 97 18 09/25/19 21:08 99 30 H 136/81 H 97 09/25/19 21:02 36.6 C 112 H 20 201/100 H 97 - Physical Exam General Appearance: positive: Alert, Moderate distress, Anxious. negative: Lethargic Eyes Bilateral: positive: Normal inspection, PERRL, EOMI ENT: negative: ENT inspection nml, Pharynx nml, No signs of dehydration Neck: positive: Nml inspection, No JVD, Trachea midline Respiratory: positive: Chest non-tender, Rhonchi Cardiovascular: positive: Regular rate & rhythm, No murmur Abdomen: positive: Non-tender, No organomegaly, Nml bowel sounds, No distention. negative: Guarding, Rebound Back: positive: Nml inspection Skin: positive: Color nml, No rash, Warm, Dry Extremities: positive: Non-tender, No pedal edema Neurologic/Psychiatric: positive: Oriented x3, Motor nml Conclusion/Plan - Problem List (1) COPD exacerbation Conclusion/Plan: Severe On bipap. Will recheck ABG Solumedrol 125mg IV tid Duoneb q4hrs scheduled Albuterol q4hrs prn Pulmicort bid Admitted to the ICU Will also check a Trop and BNP. If elevated, will check a 2D echo (2) Hypertension Conclusion/Plan: On amlodipine and lisinopril (3) Hyperlipidemia Conclusion/Plan: On atorvastatin (4) GERD (gastroesophageal reflux disease) Conclusion/Plan: Protonix ordered (5) Anxiety and depression Conclusion/Plan: On zoloft (6) Osteoarthritis Conclusion/Plan: Toradol and morphine ordered - Lab Results Fish Bones: 09/25/19 21:20 09/25/19 21:20 Core Measures - Anticipated LOS I expect patient to be DC'd or transferred within 96 hours.: Yes - DVT/VTE - Prophylaxis VTE/DVT Device ordered at admit?: Yes VTE/DVT Prophylaxis med ordered at admit?: Yes
[2019-09-26] MEDS ORDERED: KETOROLAC 15 MG/ML VIAL IVP PRN (02:25)
[2019-09-26] MEDS: SODIUM CHLORIDE FLUSH 0.9% 10 ML SYRINGE IVP SCH ×5 (02:40→21:28)
[2019-09-26] MEDS: methylPREDNISolone SUCCINATE 125 MG/2 ML VIAL IVP SCH ×4 (02:40→21:28)
[2019-09-26] MEDS: MORPHINE 2 MG/ML CARPUJECT IVP PRN ×6 (02:47→20:44)
[2019-09-26] MEDS: SODIUM CHLORIDE FLUSH 0.9% 10 ML SYRINGE IVP PRN ×7 (02:47→20:45)
[2019-09-26 03:18] LABS: BASOPHILS # (AUTO) 0.1 10^3/uL (0.0-0.1); BASOPHILS % (AUTO) 0.5 %; EOSINOPHILS # (AUTO) 2.2 10^3/uL (0.0-0.7); HGB - HEMOGLOBIN 11.4 g/dL (12.0-16.0); LYMPHOCYTES # (AUTO) 0.6 10^3/uL (1.5-3.5); LYMPHOCYTES % (AUTO) 3.5 %; MEAN CORPUSCULAR HEMOGLOBIN 30.8 pg (27.0-31.0); MEAN CORPUSCULAR HGB CONC 32.8 g/dL (32.0-36.0); MEAN CORPUSCULAR VOLUME 94.1 fL (81.0-99.0); MEAN PLATELET VOLUME 8.7 fL (7.9-10.8); MONOCYTES # (AUTO) 0.8 10^3/uL (0.0-1.0); MONOCYTES % (AUTO) 4.5 %; NEUTROPHILS % (AUTO) 77.7 %; PLT - PLATELET COUNT 314 10^3/uL (130-450); RED CELL DISTRIBUTION WIDTH 13.9 % (12.0-15.0); WHITE BLOOD COUNT 16.7 x10^3/uL (4.8-10.8)
[2019-09-26 03:26] LABS: CALCIUM 9.4 mg/dL (8.5-10.3); CREATININE 0.6 mg/dL (0.4-1.0)
[2019-09-26] MEDS ORDERED: ASPIRIN 325 MG TABLET PO SCH (03:53)
[2019-09-26] MEDS ORDERED: FUROSEMIDE 40 MG/4 ML VIAL IVP STA (03:54)
[2019-09-26] MEDS: ALBUTEROL NEB 2.5 MG/3 ML INH PRN ×2 (04:04→23:41)
[2019-09-26] MEDS: ASPIRIN 325 MG TABLET PO SCH (04:27)
[2019-09-26 04:36] LABS: PLATELET ESTIMATE, MANUAL NORMAL (130-450,000) (NORMAL); PLATELET MORPHOLOGY NORMAL APPEARANCE (NORMAL); RBC MORPHOLOGY (MULTIPLE) NORMAL APPEARANCE (NORMAL)
[2019-09-26] MEDS: BUDESONIDE 0.5 MG/2 ML NEB INH SCH ×2 (06:15→19:34)
[2019-09-26] MEDS: IPRATROPIUM/ALBUTEROL 3 ML NEB INH SCH ×4 (06:15→19:34)
[2019-09-26] MEDS: POLYETHYLENE GLYCOL 3350 17 GM PACKET PO SCH (12:43)
[2019-09-26] MEDS ORDERED: guaiFENesin 600 MG TABLET PO SCH (13:00)
[2019-09-26] MEDS: CITALOPRAM 10 MG TABLET PO SCH (13:22)
[2019-09-26] MEDS: ALPRAZolam 0.25 MG TABLET PO PRN (13:23)
[2019-09-26] MEDS: FUROSEMIDE 20 MG TABLET PO SCH (13:26)
[2019-09-26] MEDS: MAG HYDROX/AL HYDROX/SIMETH 30 ML UDC PO PRN (16:57)
[2019-09-26] MEDS: BENZONATATE 100 MG CAPSULE PO PRN (20:44)
[2019-09-27] MEDS: MORPHINE 2 MG/ML CARPUJECT IVP PRN ×6 (00:47→23:54)
[2019-09-27] MEDS: MAG HYDROX/AL HYDROX/SIMETH 30 ML UDC PO PRN ×4 (00:47→17:17)
[2019-09-27] MEDS: ALPRAZolam 0.25 MG TABLET PO PRN (00:47)
[2019-09-27] MEDS: SODIUM CHLORIDE FLUSH 0.9% 10 ML SYRINGE IVP PRN ×4 (00:48→21:36)
[2019-09-27] MEDS: IPRATROPIUM/ALBUTEROL 3 ML NEB INH SCH ×4 (03:37→20:16)
[2019-09-27 04:57] LABS: BASOPHILS % (AUTO) 0.3 %; EOSINOPHILS # (AUTO) 0.3 10^3/uL (0.0-0.7); EOSINOPHILS % (AUTO) 2.8 %; HGB - HEMOGLOBIN 10.8 g/dL (12.0-16.0); LYMPHOCYTES # (AUTO) 1.2 10^3/uL (1.5-3.5); LYMPHOCYTES % (AUTO) 13.3 %; MEAN CORPUSCULAR HEMOGLOBIN 30.5 pg (27.0-31.0); MEAN CORPUSCULAR VOLUME 95.2 fL (81.0-99.0); MEAN PLATELET VOLUME 9.1 fL (7.9-10.8); MONOCYTES # (AUTO) 0.4 10^3/uL (0.0-1.0); MONOCYTES % (AUTO) 4.6 %; NEUTROPHILS % (AUTO) 78.3 %; PLT - PLATELET COUNT 330 10^3/uL (130-450); RED BLOOD COUNT 3.54 10^6/uL (4.20-5.40)
[2019-09-27 05:07] LABS: CALCIUM 9.4 mg/dL (8.5-10.3); CREATININE 0.6 mg/dL (0.4-1.0)
[2019-09-27] MEDS: methylPREDNISolone SUCCINATE 125 MG/2 ML VIAL IVP SCH ×3 (06:09→21:35)
[2019-09-27] MEDS: BENZONATATE 100 MG CAPSULE PO PRN ×2 (06:09→19:51)
[2019-09-27] MEDS: FUROSEMIDE 20 MG TABLET PO SCH ×2 (06:10→14:05)
[2019-09-27] MEDS: ALBUTEROL NEB 2.5 MG/3 ML INH PRN (07:26)
[2019-09-27] MEDS: BUDESONIDE 0.5 MG/2 ML NEB INH SCH ×2 (07:27→20:15)
--- NOTE | 2019-09-27 08:26 | PROVIDER PROGRESS NOTE ---
Subjective - Prog Note Date Prog Note Date: 09/27/19 Prog Note Time: 14:01 - Subjective Pt reports feeling: Improved Subjective: Review of her office chart shows her to have a history of anxiety. She has been on sertraline and Lorazepam starting in 2018. She also has a history of a left lung nodule. It was biopsied and negative on its pathology. However oncology is still concerned that she may have tumor and she is supposed to be getting scheduled work-ups. She has had a abdominal aortic aneurysm that is being monitored She has had hematochezia, colonoscopy was done this last year as well as EGD. 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 She has a history of COPD. Has not been able to stop smoking. She is not on home O2. She is on intermittent steroid burst. LABA So far she has done well. She does well and that when bypass please use to control her shortness of breath she responds to it immediately. However, when taken off of it, within a few hours she starts to panic, feel like she is short of breath, hyperventilates, and need to have a BiPAP back on her. Overnight oximetry was stable. She did not desaturate. She is unhappy about that bc she really wanted bipap at home. She wants her budesonide resumed. she is asking for opiates to relieve her back pain and codieine to relieve her cough. She doesnt feel tessalon is working and she had some 'reaction" to mucinex tablets inthe past. I reviewed her chart and Dr. Jones and declined giving her opiates for cough and for hip pain. Current Medications - Current Medications Current Medications: Active Medications Generic Name Dose Route Start Last Admin Trade Name Freq PRN Reason Stop Dose Admin Al Hydroxide/Mg Hydroxide 30 ml 09/26/19 14:34 09/27/19 11:29 Mylanta Plus PO 30 ml Q4HR PRN Administration INDIGESTION Albuterol 2.5 mg 09/26/19 02:50 09/27/19 07:26 INH 2.5 mg Q4H PRN Administration Dyspnea Albuterol/Ipratropium 3 ml 09/26/19 07:00 09/27/19 10:49 Duoneb INH 3 ml RTQ4H FLY Administration Alprazolam 0.25 mg 09/26/19 12:25 09/27/19 00:47 Xanax PO 0.25 mg BID PRN Administration Anxiety Aspirin 325 mg 09/26/19 04:00 09/27/19 08:59 Adalberto PO 325 mg DAILYWM FLY Administration Atorvastatin Calcium 40 mg 09/27/19 21:00 Lipitor PO QPM FLY Benzonatate 100 mg 09/26/19 19:12 09/27/19 06:09 Tessalon PO 100 mg TID PRN Administration Cough Budesonide 0.5 mg 09/26/19 07:00 09/27/19 07:27 Pulmicort INH 0.5 mg RTBID FLY Administration Budesonide 9 mg 09/28/19 09:00 Entocort Ec PO DAILY FLY Citalopram Hydrobromide 5 mg 09/26/19 13:00 09/27/19 08:59 Celexa PO 5 mg DAILY FLY Administration Furosemide 20 mg 09/26/19 14:00 09/27/19 14:05 Lasix PO 20 mg BIDDIURETIC FLY Administration Guaifenesin 10 ml 09/27/19 13:48 Robitussin Dm PO Q6HR PRN Cough Methylprednisolone Sodium Succinate 125 mg 09/26/19 01:00 09/27/19 14:05 Solu-Medrol (125mg Vial) IVP 125 mg TID FLY Administration Morphine Sulfate 1 mg 09/26/19 02:40 09/27/19 10:19 Morphine (Carpuject) IVP 1 mg Q3H PRN Administration PAIN Non-Formulary Medication 40 mg 09/28/19 09:00 Lisinopril [Lisinopril] PO DAILY [facility] Polyethylene Glycol 17 gm 09/26/19 09:00 09/27/19 08:59 Miralax PO Not Given DAILY [facility] Sodium Chloride 10 ml 09/25/19 23:54 09/27/19 06:57 Normal Saline Flush 0.9% IVP 10 ml PRN PRN Administration NEEDED PER PROVIDER ORDERS Sodium Chloride 10 ml 09/26/19 01:00 09/27/19 10:18 Normal Saline Flush 0.9% IVP 10 ml 0100,0900,1700 FLY Administration Aspirin 162.5 mg PO DAILY 01/11/18 Atorvastatin Calcium 40 mg PO QPM 01/11/18 Ergocalciferol [Vitamin D2] 50,000 units PO Q7D 01/11/18 Lisinopril 40 mg PO DAILY 01/11/18 Albuterol Sulfate [Proair Hfa Inhaler] 2 puffs INH Q4H PRN 09/26/19 Amlodipine Besylate 10 mg PO DAILY 09/26/19 Budesonide [Budesonide EC] 9 mg PO DAILY 09/26/19 Fluticasone Propion/Salmeterol [Wixela 500-50 Inhub] 1 puffs INH BID 09/26/19 Potassium Chloride [Klor-Con 10] 10 meq PO DAILY 09/26/19 Objective - Vital Signs/Intake & Output Reviewed Vital Signs: Yes Vital Signs: Vital Signs x48h Temp Pulse Pulse Resp BP Pulse Ox 09/27/19 07:27 75 20 09/27/19 07:00 94 24 167/98 H 93 09/27/19 06:14 81 16 168/79 H 93 09/27/19 06:00 36.7 C 90 22 178/92 H 94 09/27/19 05:05 75 11 L 156/78 H 97 09/27/19 04:00 79 14 154/74 H 99 09/27/19 03:41 73 16 09/27/19 03:00 72 14 150/75 H 96 09/27/19 02:00 76 11 L 152/81 H 96 09/27/19 01:00 90 20 169/87 H 91 L Intake & Output: Intake & Output 09/24/19 09/25/19 09/26/19 09/27/19 23:59 23:59 23:59 23:59 Intake Total 620 270 Output Total 725 50 Balance -105 220 - Objective General Appearance: positive: No acute distress, Alert, Other (nasal voice, slightly congested cough) Neck: positive: No JVD. negative: Stiff neck, Carotid bruit Respiratory: positive: Chest non-tender, No respiratory distress (now but can get tachypneic quickly), Wheezes, Other (off and on bipap everytime she c/o sob at rest, panicks. does have occ cough that sounds congested and she feels she can't bring up phlegm). negative: Rhonchi Cardiovascular: positive: Irregularly irregular (at times since 1300. Tele shows occ afib.) - Lab Results Fish Bones: 09/27/19 04:30 09/27/19 04:30 Other Labs: Lab Results x24hrs 09/27/19 09/27/19 09/26/19 Range/Units 04:30 04:30 11:30 WBC 9.0 (4.8-10.8) x10^3/uL RBC 3.54 L (4.20-5.40) 10^6/uL Hgb 10.8 L (12.0-16.0) g/dL Hct 33.7 L (37.0-47.0) % MCV 95.2 (81.0-99.0) fL MCH 30.5 (27.0-31.0) pg MCHC 32.0 (32.0-36.0) g/dL RDW 14.0 (12.0-15.0) % Plt Count 330 (130-450) 10^3/uL MPV 9.1 (7.9-10.8) fL Neut # (Auto) 7.0 H (1.5-6.6) 10^3/uL Lymph # (Auto) 1.2 L (1.5-3.5) 10^3/uL [place] # (Auto) 0.4 (0.0-1.0) 10^3/uL Eos # (Auto) 0.3 (0.0-0.7) 10^3/uL Baso # (Auto) 0.0 (0.0-0.1) 10^3/uL Absolute Nucleated RBC 0.00 x10^3/uL Nucleated RBC % 0.0 /100WBC Sodium 135 (135-145) mmol/L Potassium 4.7 (3.5-5.0) mmol/L Chloride 98 L (101-111) mmol/L Carbon Dioxide 31 (21-32) mmol/L Anion Gap 6.0 (6-13) BUN 15 (6-20) mg/dL Creatinine 0.6 (0.4-1.0) mg/dL Estimated GFR (MDRD) 97 (>89) Glucose 128 H (70-100) mg/dL Calcium 9.4 (8.5-10.3) mg/dL Troponin I High Sens 53.5 H* (2.3-14.8) pg/mL Assessment/Plan - Problem List (1) COPD exacerbation Impression: Severe, In ICU. She has improved. Thought process was that she may have had CHF, not COPD, or maybe coronary ischemia. Echo December 2017 had an ejection fraction of 50 to 55%. Severe increase in left atrial volume. Moderately abnormal right heart pressures. Repeat echo done September 26, yesterday, showed a continued normal ejection fraction of 55 to 60%. Moderate increased left atrial volume index. Mildly abnormal right heart pressures with an RVSP at rest 44 mmHg. Compared to prior echo, pulmonary arterial systolic pressure has decreased. The abdominal aortic dilation has increased from 3.7 cm to 4.1 cm. She did have elevated troponins at 153.9>84.9>53.5 and I spoke to [facility] Dr. Bolden. She will need a stress test in the outpatient setting but it's felt that the bump is due to the increased stress of breathing from her COPD exacerbation. She would recommend adding a diuretic once she leave the hospital to make sure diastolic failure is being addressed even though it wasn't seen on ECHO. On bipap off and on 09/26. ABG showed good response. Degree of anxiety present. She will start to have anxiety and hyperventilate after a while of being off BiPap and then need to go back on. overnight oximetry done to see if she qualifies for home BiPAP and she didn't qualify for home bipap On Solumedrol 125mg IV tid lasix bid Duoneb q4hrs scheduled Albuterol q4hrs prn Pulmicort bid Mucinex stopped, tessalon continued but Johnathan DM added today for cough and congestion. I am declining to give her Johnathan AC. (2) Hypertension Conclusion/Plan: On amlodipine and lisinopril (3) Hyperlipidemia Conclusion/Plan: On atorvastatin (4) GERD (gastroesophageal reflux disease) Conclusion/Plan: Protonix ordered (5) Anxiety and depression Conclusion/Plan: On zoloft (6) Osteoarthritis Conclusion/Plan: Toradol and morphine ordered (7) intermittent atrial fibrillation ECHO shows moderate LAE start amiodarone. no anticoagulation since less than 7 days durations.
[2019-09-27] MEDS: POLYETHYLENE GLYCOL 3350 17 GM PACKET PO SCH (08:59)
[2019-09-27] MEDS: CITALOPRAM 10 MG TABLET PO SCH (08:59)
[2019-09-27] MEDS: ASPIRIN 325 MG TABLET PO SCH (08:59)
[2019-09-27] MEDS: SODIUM CHLORIDE FLUSH 0.9% 10 ML SYRINGE IVP SCH ×5 (10:18→23:55)
[2019-09-27] MEDS: guaiFENesin/DEXTROMETHORPHAN 10 ML UDC PO PRN ×2 (14:58→23:53)
[2019-09-27] MEDS ORDERED: ATORVASTATIN 40 MG TABLET PO SCH (21:00)
[2019-09-27] MEDS: AMIODARONE 200 MG TABLET PO SCH (21:35)
[2019-09-28 05:19] LABS: BASOPHILS % (AUTO) 0.2 %; EOSINOPHILS # (AUTO) 0.1 10^3/uL (0.0-0.7); EOSINOPHILS % (AUTO) 0.6 %; HGB - HEMOGLOBIN 11.7 g/dL (12.0-16.0); LYMPHOCYTES # (AUTO) 1.4 10^3/uL (1.5-3.5); LYMPHOCYTES % (AUTO) 14.8 %; MEAN CORPUSCULAR HEMOGLOBIN 31.7 pg (27.0-31.0); MEAN CORPUSCULAR HGB CONC 32.9 g/dL (32.0-36.0); MEAN CORPUSCULAR VOLUME 96.5 fL (81.0-99.0); MEAN PLATELET VOLUME 9.1 fL (7.9-10.8); MONOCYTES # (AUTO) 0.6 10^3/uL (0.0-1.0); MONOCYTES % (AUTO) 5.9 %; NEUTROPHILS # (AUTO) 7.2 10^3/uL (1.5-6.6); NEUTROPHILS % (AUTO) 77.5 %; PLT - PLATELET COUNT 359 10^3/uL (130-450); RED BLOOD COUNT 3.69 10^6/uL (4.20-5.40); RED CELL DISTRIBUTION WIDTH 13.6 % (12.0-15.0); WHITE BLOOD COUNT 9.3 x10^3/uL (4.8-10.8)
[2019-09-28] MEDS: methylPREDNISolone SUCCINATE 125 MG/2 ML VIAL IVP SCH (05:20)
[2019-09-28] MEDS: MORPHINE 2 MG/ML CARPUJECT IVP PRN ×2 (05:20→08:32)
[2019-09-28] MEDS: SODIUM CHLORIDE FLUSH 0.9% 10 ML SYRINGE IVP PRN (05:21)
[2019-09-28] MEDS: FUROSEMIDE 20 MG TABLET PO SCH (05:22)
[2019-09-28 05:25] LABS: CALCIUM 9.2 mg/dL (8.5-10.3); CREATININE 0.5 mg/dL (0.4-1.0)
[2019-09-28] MEDS: BUDESONIDE 0.5 MG/2 ML NEB INH SCH (07:37)
[2019-09-28] MEDS: IPRATROPIUM/ALBUTEROL 3 ML NEB INH SCH (07:37)
[2019-09-28] MEDS: MAG HYDROX/AL HYDROX/SIMETH 30 ML UDC PO PRN (07:57)
[2019-09-28] MEDS: guaiFENesin/DEXTROMETHORPHAN 10 ML UDC PO PRN (08:32)
[2019-09-28] MEDS: CITALOPRAM 10 MG TABLET PO SCH (08:33)
[2019-09-28] MEDS: ASPIRIN 325 MG TABLET PO SCH (08:33)
[2019-09-28] MEDS: AMIODARONE 200 MG TABLET PO SCH (08:35)
[2019-09-28] MEDS ORDERED: amLODIPine 5 MG TABLET PO SCH (09:00)
[2019-09-28] MEDS ORDERED: BUDESONIDE 3 MG CAPSULE PO SCH (09:00)
[2019-09-28] MEDS ORDERED: LISINOPRIL 20 MG TABLET PO SCH (09:00)
--- NOTE | 2019-09-28 09:24 | Discharge Plan ---
Discharge Plan Problem Reviewed?: Yes Disposition: Home, Self Care Condition: Fair Prescriptions: Azithromycin 250 mg PO DAILY 5 Days #6 tab Citalopram [CeleXA] 5 mg PO DAILY #30 tablet Diet: Regular Activity Restrictions: Activity as Tolerated Shower Restrictions: No Driving Restrictions: No Instruction Topics: Chronic Lung Disease [employer], Chronic Lung Disease Stress Health Concerns: You had to come to our emergency room because of severe shortness of breath from emphysema. We did make sure you were not having a heart attack or that you were not having congestive heart failure b doing bloo dtests and doing an ulstrasound of your heart called an echocardiogram. While here you did have episodes of atrial fibrillation, which is an irregular heart beat, but then your rhythm settled back into a regular rhythm. Plan of Treatment: 1. Steroids to reduce inflammmation in your lungs 2. Antibiotics to reduce inflammation 3. You were on temporary amiodarone to control your heart rate. You will not go home on it. 4. You were evaluated for the use of BiPAP to help you breath at night but you did so well you did not need the machine. Care Goals: 1. See your primary care provider, Anila RITTER, in the next week as you taper off of your steroid pills. 2. Complete the azithromycin prescribed from before 3. Have Lunaelmira schedule you for a Cardiolite stress test to evaluate your heart muscle for blocked arteries. 4. Also have her refer you for pulmonary function studies to see how bad your emphysema is. 5. I have referred you to Pulmonary Rehabilitation to improve you endurance and breathing. 6. Please take this piece of paper to your visit with your provider so they can see these instructions. Assessment: patient expresses understanding and will comply with goals and plan Follow-Up Care: [facility] - Pulmonary No Smoking: If you smoke, Please STOP! Call for help. Follow-up with: Anila Manzano ARNP [Primary Care Provider] -
[2019-09-28 10:12] VITALS: BP 177/89
--- NOTE | 2019-09-28 19:02 | DISCHARGE SUMMARY ---
Discharge Summary Admit Date: 09/26/19 Discharge Date: 09/28/19 Discharging Provider: Smiley Gonsales MD Primary Care Provider: ROBERTA Casiano Code Status: Do Not Attempt Resuscitation Condition at Discharge: Fair Discharge Disposition: 01 Home, Self Care - DIAGNOSES Discharge Diagnoses with Status of Each Condition: 1. COPD exacerbation 2. Hypertension 3. Hyperlipidemia 4. Gastroesophageal reflux disease 5. Anxiety and depression 6. Osteoarthritis 7. Intermittent atrial fibrillation 8. Abnormal troponins - ALLERGIES Allergies/Adverse Reactions: Allergies Allergy/AdvReac Type Severity Reaction Status Date / Time acetaminophen [From Vicodin] Allergy Itching Verified 09/25/19 00:57 alendronate sodium Allergy gi upset Verified 09/25/19 00:57 [From Fosamax] hydrocodone [From Vicodin] Allergy Itching Verified 09/25/19 00:57 raloxifene [From Evista] Allergy Rash Verified 09/25/19 00:57 tramadol Allergy Itching Verified 09/25/19 00:57 valacyclovir Allergy tongue Verified 09/25/19 00:57 swelling varenicline [From Chantix] Allergy paranoya Verified 09/25/19 00:57 - MEDICATIONS Home Medications: Ambulatory Orders Medication Instructions Recorded Confirmed Albuterol Sulfate [Proair Hfa 2 puffs INH Q4H PRN #0 09/28/19 09/26/19 Inhaler] Amlodipine Besylate 10 mg PO DAILY #0 09/28/19 09/26/19 Aspirin 162.5 mg PO DAILY #0 09/28/19 09/26/19 Atorvastatin Calcium 40 mg PO QPM #0 09/28/19 09/26/19 Azithromycin 250 mg PO DAILY 5 Days #6 tab 09/28/19 Budesonide [Budesonide EC] 9 mg PO DAILY #0 09/28/19 09/26/19 Citalopram [CeleXA] 5 mg PO DAILY #30 tablet 09/28/19 Ergocalciferol [Vitamin D2] 50,000 units PO Q7D #0 09/28/19 09/26/19 Fluticasone Propion/Salmeterol 1 puffs INH BID #0 09/28/19 09/26/19 [Wixela 500-50 Inhub] Ipratropium/Albuterol [Duoneb] 3 ml INH Q6H PRN #24 neb 09/28/19 09/26/19 Lisinopril 40 mg PO DAILY #0 09/28/19 09/26/19 Methylprednisolone [Medrol Dose 1 each PO .PACKAGEINSTRUCTIONS 6 09/28/19 Pack] Days #1 each Potassium Chloride [Klor-Con 10] 10 meq PO DAILY #0 09/28/19 09/26/19 - LABS Result Diagrams: 09/28/19 04:55 09/28/19 04:55
== END 2019-09-28 11:00 | disposition home or self-care (01) | DRG 191 ==
LOC: EDUNIT# → ED 21:01 → ICU 23:54
PROVIDERS: ADMIT Internal Medicine; ATTEND Specialist
DX: J96.01 Acute respiratory failure with hypoxia (principal); J43.9 Emphysema, unspecified; I11.0 Hypertensive heart disease with heart failure; I50.30 Unspecified diastolic (congestive) heart failure; E87.1 Hypo-osmolality and hyponatremia; I48.91 Unspecified atrial fibrillation; F41.9 Anxiety disorder, unspecified; F17.210 Nicotine dependence, cigarettes, uncomplicated; F32.9 Major depressive disorder, single episode, unspecified; R91.1 Solitary pulmonary nodule; R79.89 Other specified abnormal findings of blood chemistry; G89.29 Other chronic pain; M54.9 Dorsalgia, unspecified; K21.9 Gastro-esophageal reflux disease without esophagitis; M19.90 Unspecified osteoarthritis, unspecified site; J32.9 Chronic sinusitis, unspecified; E78.5 Hyperlipidemia, unspecified; R32 Unspecified urinary incontinence; R35.0 Frequency of micturition; H54.7 Unspecified visual loss; H91.90 Unspecified hearing loss, unspecified ear; Z96.649 Presence of unspecified artificial hip joint; Z87.440 Personal history of urinary (tract) infections; Z79.82 Long term (current) use of aspirin; Z87.891 Personal history of nicotine dependence; I10 Essential (primary) hypertension; Z99.81 Dependence on supplemental oxygen; Z91.19 Patient's noncompliance with other medical treatment and regimen
CPT/HCPCS: 36415; 36600; 71045; 80048; 80053; 82803; 83690; 83735; 83880; 84100; 84484; 85025; 87150; 93005; 93306; 94640; 94660; 94761; 96374; 96375; 96376; 99284; 99285; A9270; G0378; J7626

== ENCOUNTER 2019-10-22 20:24 | Outpatient (CLI) | payer MEDICARE, OTHER | END 2019-10-22 20:25 | disposition critical access hospital (66) | LOC: EMS 20:24 | PROVIDERS: ATTEND Surgery | DX: R06.02 Shortness of breath (principal); F41.9 Anxiety disorder, unspecified | CPT/HCPCS: A0425; A0433 ==

== ENCOUNTER 2019-10-22 20:42 | Inpatient (IN) | payer MEDICARE, OTHER ==
--- NOTE | 2019-10-22 20:47 | ED Physician Documentation ---
PD HPI DYSPNEA - Stated complaint Stated Complaint: RESP DISTRESS - Chief complaint Chief Complaint: Resp - History obtained from History obtained from: Patient, EMS - History of Present Illness Timing - onset: Today (this evening) Timing - onset during: Rest Timing - duration: Hours Timing - details: Gradual onset, Constant Pain level now: 0 Improved by: Rest Worsened by: Exertion Associated symptoms: Cough, Wheezing. No: Fever, Hemoptysis, Chest pain / discomfort Similar symptoms before: Diagnosis (COPD) Recently seen: Admitted (Admitted to [facility] last month, returned same day as released, then d/c 09/28.) - Additional information Additional information: BIBA for dyspnea that has been worsening since this evening.. Patient tried her own duoneb followed by albuterol without improvement and so family called 911. EMS gave patient duoneb and albuterol en route as well as 125mg IV solumedrol. Review of Systems Constitutional: denies: Fever Ears: reports: Reviewed and negative Nose: reports: Reviewed and negative Throat: reports: Reviewed and negative Cardiac: reports: Reviewed and negative Respiratory: reports: Dyspnea, Cough, Wheezing GI: reports: Nausea (medics gave zofran en route). denies: Abdominal Pain, Vomiting : denies: Dysuria, Frequency Skin: reports: Reviewed and negative Musculoskeletal: reports: Reviewed and negative Neurologic: reports: Reviewed and negative PD PAST MEDICAL HISTORY - Past Medical History Cardiovascular: Hypertension, High cholesterol Respiratory: COPD, Emphysema, Shortness of breath Neuro: None Endocrine/Autoimmune: None GI: None : Incontinence, Chronic bladder infection, Frequency HEENT: Chronic vision loss, Chronic sinusitis, Chronic hearing loss Psych: None Musculoskeletal: Osteoarthritis, Chronic back pain Derm: None - Past Surgical History Past Surgical History: Yes General: Appendectomy Ortho: Hip replacement /[employer]: Tubal ligation Cardiovascular: AAA HEENT: Tonsil/Adenoidectomy - Present Medications Home Medications: Ambulatory Orders Medication Instructions Recorded Confirmed Albuterol Sulfate [Proair Hfa 2 puffs INH Q4H PRN #0 09/28/19 09/26/19 Inhaler] Amlodipine Besylate 10 mg PO DAILY #0 09/28/19 09/26/19 Aspirin 162.5 mg PO DAILY #0 09/28/19 09/26/19 Atorvastatin Calcium 40 mg PO QPM #0 09/28/19 09/26/19 Budesonide [Budesonide EC] 9 mg PO DAILY #0 09/28/19 09/26/19 Citalopram [CeleXA] 5 mg PO DAILY #30 tablet 09/28/19 Fluticasone Propion/Salmeterol 1 puffs INH BID #0 09/28/19 09/26/19 [Wixela 500-50 Inhub] Ipratropium/Albuterol [Duoneb] 3 ml INH Q6H PRN #24 neb 09/28/19 09/26/19 Lisinopril 40 mg PO DAILY #0 09/28/19 09/26/19 Potassium Chloride [Klor-Con 10] 10 meq PO DAILY #0 09/28/19 09/26/19 - Allergies Allergies/Adverse Reactions: Allergies Allergy/AdvReac Type Severity Reaction Status Date / Time acetaminophen [From Vicodin] Allergy Itching Verified 09/25/19 00:57 alendronate sodium Allergy gi upset Verified 09/25/19 00:57 [From Fosamax] hydrocodone [From Vicodin] Allergy Itching Verified 09/25/19 00:57 raloxifene [From Evista] Allergy Rash Verified 09/25/19 00:57 tramadol Allergy Itching Verified 09/25/19 00:57 valacyclovir Allergy tongue Verified 09/25/19 00:57 swelling varenicline [From Chantix] Allergy paranoya Verified 09/25/19 00:57 - Social History Does the pt smoke?: Yes Smoking Status: Former smoker Does the pt drink ETOH?: No Does the pt have substance abuse?: No - Immunizations Immunizations are current?: No - POLST Patient has POLST: No POLST Status: Full Code PD ED PE NORMAL - Vitals Vital signs reviewed: Yes - General General: Alert and oriented X 3, Well developed/nourished, Other (mild/moderate respiratory distress, speaking in abbreviated sentences) - HEENT HEENT: Moist mucous membranes - Neck Neck: Supple, no meningeal sign - Abdomen Abdomen: Soft, Non tender - Derm Derm: Normal color, Warm and dry - Extremities Extremities: No edema PD ED PE EXPANDED - Cardiac Cardiac: Tachy, Murmur Present (2/6 ELLI at base) - Respiratory Respiratory: Wheezing (expiratory wheezing but poor air movement bilaterally), Decreased breath sounds Results - Vitals Vitals: Vital Signs - 24 hr 10/22/19 10/22/19 10/22/19 20:43 21:13 21:33 Temperature 36.3 C L Heart Rate 108 H 110 H 112 H Respiratory 19 20 19 Rate Blood Pressure 200/94 H 166/129 H 163/102 H O2 Saturation 100 100 100 10/22/19 10/22/19 22:00 22:08 Temperature Heart Rate 110 H 109 H Respiratory 19 Rate Blood Pressure 120/72 O2 Saturation 97 Oxygen O2 Source BIPAP Oxygen Flow Rate 6 - EKG (time done) No standard instances Rate: Rate (enter#) (109), Tachy Rhythm: NSR [place]: LAD Intervals: Normal [place] QRS: Normal Ischemia: Normal ST segments, Q waves (V1-V3) - Labs Labs: Laboratory Tests 10/22/19 10/22/19 10/22/19 20:51 20:51 20:57 WBC 8.3 RBC 4.51 Hgb 14.2 Hct 42.2 MCV 93.6 MCH 31.5 H MCHC 33.6 RDW 12.3 Plt Count 285 MPV 9.4 Neut # (Auto) 6.5 Lymph # (Auto) 1.3 L [place] # (Auto) 0.2 Eos # (Auto) 0.3 Baso # (Auto) 0.0 Absolute Nucleated RBC 0.00 Nucleated RBC % 0.0 VBG pH VBG pCO2 VBG pO2 VBG HCO3 VBG Total CO2 VBG O2 Saturation VBG Base Excess Sodium 127 L Potassium 3.2 L Chloride 87 L Carbon Dioxide 34 H Anion Gap 6.0 BUN 11 Creatinine 0.7 Estimated GFR (MDRD) 81 L Glucose 131 H Calcium 9.4 Total Bilirubin 0.5 AST 16 ALT 15 Alkaline Phosphatase 30 L Troponin I High Sens 6.0 Total Protein 8.1 Albumin 4.4 Globulin 3.7 Albumin/Globulin Ratio 1.2 Lipase 27 10/22/19 21:25 WBC RBC Hgb Hct MCV MCH MCHC RDW Plt Count MPV Neut # (Auto) Lymph # (Auto) [place] # (Auto) Eos # (Auto) Baso # (Auto) Absolute Nucleated RBC Nucleated RBC % VBG pH 7.125 L VBG pCO2 101.8 H VBG pO2 45.7 VBG HCO3 32.7 H VBG Total CO2 35.9 H VBG O2 Saturation 73.6 VBG Base Excess -0.1 Sodium Potassium Chloride Carbon Dioxide Anion Gap BUN Creatinine Estimated GFR (MDRD) Glucose Calcium Total Bilirubin AST ALT Alkaline Phosphatase Troponin I High Sens Total Protein Albumin Globulin Albumin/Globulin Ratio Lipase - Rads (name of study) chest xray Radiology: Prelim report reviewed, See rad report PD MEDICAL DECISION MAKING - ED course Complexity details: reviewed old records, reviewed results, re-evaluated patient, considered differential, d/w patient, d/w family Departure - Departure Disposition: 66 [facility] DC/Xfer Clinical Impression: COPD exacerbation Condition: Stable
[2019-10-22] MEDS ORDERED: ALBUTEROL NEB 2.5 MG/3 ML INH ONE (20:54)
[2019-10-22] MEDS ORDERED: ALBUTEROL NEB 2.5 MG/3 ML INH STA ×2 (20:54→21:03)
[2019-10-22 20:57] LABS: BASOPHILS % (AUTO) 0.1 %; EOSINOPHILS # (AUTO) 0.3 10^3/uL (0.0-0.7); EOSINOPHILS % (AUTO) 3.3 %; HGB - HEMOGLOBIN 14.2 g/dL (12.0-16.0); LYMPHOCYTES # (AUTO) 1.3 10^3/uL (1.5-3.5); LYMPHOCYTES % (AUTO) 15.4 %; MEAN CORPUSCULAR HEMOGLOBIN 31.5 pg (27.0-31.0); MEAN CORPUSCULAR HGB CONC 33.6 g/dL (32.0-36.0); MEAN CORPUSCULAR VOLUME 93.6 fL (81.0-99.0); MEAN PLATELET VOLUME 9.4 fL (7.9-10.8); MONOCYTES # (AUTO) 0.2 10^3/uL (0.0-1.0); MONOCYTES % (AUTO) 1.9 %; NEUTROPHILS # (AUTO) 6.5 10^3/uL (1.5-6.6); NEUTROPHILS % (AUTO) 78.7 %; PLT - PLATELET COUNT 285 10^3/uL (130-450); RED BLOOD COUNT 4.51 10^6/uL (4.20-5.40); RED CELL DISTRIBUTION WIDTH 12.3 % (12.0-15.0); WHITE BLOOD COUNT 8.3 x10^3/uL (4.8-10.8)
[2019-10-22 21:12] LABS: ALBUMIN 4.4 g/dL (3.2-5.5); ALBUMIN/GLOBULIN RATIO 1.2 (1.0-2.2); BILIRUBIN,TOTAL 0.5 mg/dL (0.2-1.0); CALCIUM 9.4 mg/dL (8.5-10.3); CREATININE 0.7 mg/dL (0.4-1.0); TOTAL PROTEIN 8.1 g/dL (6.7-8.2)
--- NOTE | 2019-10-22 21:28 | XRAY Report ---
Reason: dyspnea Procedure Date: 10/22/2019 Accession Number: [id number] / [id number] Procedure: XR - Chest 1 View X-Ray CPT Code: 59052 Final Report FULL RESULT: EXAM: CHEST RADIOGRAPHY EXAM DATE: 10/22/2019 08:52 PM. CLINICAL HISTORY: Dyspnea. COMPARISON: CHEST 1 VIEW 09/25/2019 9:28 PM. TECHNIQUE: 1 view. FINDINGS: Cardiac leads overlie the chest. Heart size is normal. Calcified plaque in the thoracic aorta. Diffuse prominence of the pulmonary interstitium. No consolidation, pleural effusion, or pneumothorax. The bones are osteopenic. IMPRESSION: No evidence of focal pneumonia. Redemonstration of diffuse prominence of the pulmonary interstitium, which may represent changes from chronic pulmonary disease versus venous congestion. RADIA
[2019-10-22 21:32] LABS: VBG PCO2 101.8 mmHg (41-51); VBG PH 7.125 (7.31-7.41); VBG PO2 45.7 mmHg (25-47)
[2019-10-22 21:33] LABS: VBG BASE EXCESS -0.1 mmol/L (-2 - +2); VBG TOTAL CO2 35.9 mmol/L (24-29)
[2019-10-22] MEDS ORDERED: SODIUM CHLORIDE FLUSH 0.9% 10 ML SYRINGE IVP PRN (22:30)
[2019-10-22] MEDS ORDERED: MORPHINE 2 MG/ML CARPUJECT IVP PRN (22:30)
[2019-10-22] MEDS ORDERED: cefTRIAXone 1 GM in SODIUM CHLORIDE 0.9% MINIBAG 100 ML IV STA (22:36)
[2019-10-22] MEDS ORDERED: AZITHROMYCIN INJ 500 MG in SODIUM CHLORIDE 0.9% 250 ML IV STA (22:36)
--- NOTE | 2019-10-22 22:50 | HISTORY & PHYSICAL EXAMINATION ---
Chief Complaint - Chief Complaint Chief Complaint: Shortness of breath History of Present Illness - Admitted From Admitted From:: Home - History Obtained From Records Reviewed: Yes History obtained from: Patient, ER Physician, EMR Exam Limitations: Patient on BiPAP and in respiratory distress - History of Present Illness HPI Comment/Other: This is a 79-year-old female with a past medical history significant for COPD on 2 L of oxygen at rest 3 L with exertion who presents from home this evening complaining of worsening shortness of breath that began earlier this evening. She reports that she took a DuoNeb breathing treatment as well as albuterol at home without improvement. Her family then called EMS who gave the patient another DuoNeb and albuterol treatment as well as on 25 mg of Solu-Medrol. History is limited from the patient as she is on BiPAP and tachypneic. She reports worsening shortness of breath, cough, and wheezing. She denies chest pain or fever or chills. She reports she has been using her oxygen as previously prescribed. In the emergency department, she found to be afebrile, tachycardic in the 100s, hypertensive, respiratory rate in the low 20s, and saturating 90% on 6 L nasal cannula. Her CBC was unremarkable. BMP revealed a sodium 127 potassium of 3.2. Initial troponin is negative. VBG showed a pH 7.125 with a PCO2 of 101.8. The patient was placed on BiPAP and given another albuterol treatment. Chest x-ray did not reveal an acute process. Given these findings, medicine was consulted for admission. I did discuss with the patient briefly regarding goals of care. She is okay with intubation if it is temporary but would not want to be resuscitated. 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 Her sister also had rheumatoid arthritis. Social History Notes: Unable to update her social history given her respiratory distress. The following is obtained from prior H&P's. 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 She raised her children in [place], [place], and [place]. She has been to [place], her second marriage, for the past 41 years. Dax has multiple medical problems. The patient has 5 biological children. She admits to life long tobacco use. She denies alcohol or illicit drug use. - Substance History Use: Uses substance without health or social issues: Tobacco - POLST Patient has POLST: No Meds/Allgy - Home Medications Home Medications: Ambulatory Orders Medication Instructions Recorded Confirmed Albuterol Sulfate [Proair Hfa 2 puffs INH Q4H PRN #0 09/28/19 09/26/19 Inhaler] Amlodipine Besylate 10 mg PO DAILY #0 09/28/19 09/26/19 Aspirin 162.5 mg PO DAILY #0 09/28/19 09/26/19 Atorvastatin Calcium 40 mg PO QPM #0 09/28/19 09/26/19 Budesonide [Budesonide EC] 9 mg PO DAILY #0 09/28/19 09/26/19 Citalopram [CeleXA] 5 mg PO DAILY #30 tablet 09/28/19 Fluticasone Propion/Salmeterol 1 puffs INH BID #0 09/28/19 09/26/19 [Wixela 500-50 Inhub] Ipratropium/Albuterol [Duoneb] 3 ml INH Q6H PRN #24 neb 09/28/19 09/26/19 Lisinopril 40 mg PO DAILY #0 09/28/19 09/26/19 Potassium Chloride [Klor-Con 10] 10 meq PO DAILY #0 09/28/19 09/26/19 - Allergies Allergies/Adverse Reactions: Allergies Allergy/AdvReac Type Severity Reaction Status Date / Time acetaminophen [From Vicodin] Allergy Itching Verified 09/25/19 00:57 alendronate sodium Allergy gi upset Verified 09/25/19 00:57 [From Fosamax] hydrocodone [From Vicodin] Allergy Itching Verified 09/25/19 00:57 raloxifene [From Evista] Allergy Rash Verified 09/25/19 00:57 tramadol Allergy Itching Verified 09/25/19 00:57 valacyclovir Allergy tongue Verified 09/25/19 00:57 swelling varenicline [From Chantix] Allergy paranoya Verified 09/25/19 00:57 Review of Systems - Constitutional Constitutional: denies: Fever, Chills - Cardiovascular Cariovascular: reports: Exertional dyspnea, Decr. exercise tolerance. denies: Chest pain - Respiratory Respiratory: reports: Cough, Wheezing, SOB at rest, SOB with exertion - All Other Systems All Other Systems: reports: Other Prior Level of Functionality: She is independent with her ADLs. Exam - Vital Signs Vital Signs: Vital Signs x48h Temp Pulse Resp BP Pulse Ox 10/22/19 22:08 109 H 10/22/19 21:33 112 H 19 163/102 H 100 10/22/19 21:13 110 H 20 166/129 H 100 10/22/19 20:43 36.3 C L 108 H 19 200/94 H 100 - Physical Exam General Appearance: positive: Alert, Moderate distress Eyes Bilateral: positive: Normal inspection ENT: positive: ENT inspection nml Neck: positive: Nml inspection Respiratory: positive: Wheezes (She has faint expiratory wheezes with prolonged expiratory phase. He is tachypneic. BiPAP mask is in place.). negative: No respiratory distress, Breath sounds nml Cardiovascular: positive: No murmur, Tachycardia. negative: Bradycardia, Systolic murmur, Diastolic murmur Abdomen: positive: Non-tender, No distention. negative: Tenderness Skin: positive: No rash, Warm, Dry Extremities: positive: No pedal edema Neurologic/Psychiatric: positive: Other (No focal motor deficits.) Conclusion/Plan - Problem List (1) COPD exacerbation Conclusion/Plan: Presentation physical exam is consistent with COPD exacerbation. Her breath sounds were reportedly initially quite diminished but she is not moving a little more air and has faint expiratory wheezes. Given her VBG findings, will continue her on BiPAP and repeat an ABG. If her hypercapnia is worsening, will intubate her. Continue Solu-Medrol 40 mg twice a day. We will start ceftriaxone and doxycycline. Doxycycline is preferred to azithromycin given her prolonged QTC. Continue DuoNeb every 4 hours. Supplemental oxygen for goal saturation greater than 88%. (2) Acute hypercapnic respiratory failure Conclusion/Plan: This is secondary to her COPD exacerbation. Her pH was significantly reduced and her CO2 is greater than 100 on VBG. She has excellent tidal volumes on BiPAP with a minute ventilation greater than 14 L. We will recheck an ABG and as long as she is improving, will hold off on intubation. Continue management for COPD as mentioned above. (3) Chronic respiratory failure with hypoxia Conclusion/Plan: Secondary to her COPD. She is on 2 L of oxygen at rest and 3 L with exertion. She is on fluticasone and salmeterol along with albuterol as needed. Will resume these medications as her COPD exacerbation improves. (4) Hyponatremia Conclusion/Plan: She appears dry on exam and suspect her hyponatremia is hypovolemic hyponatremia. We will start her on gentle hydration with normal saline. If her symptoms do not improve, will obtain urine electrolytes and osmolality. Check sodium in the morning. (5) Hypertension Conclusion/Plan: Her initial blood pressure was greater than 200 but she is now in the 160s. Will resume her home lisinopril and amlodipine. (6) Hypokalemia Conclusion/Plan: She is on supplementation at home. We will replace orally. (7) Paroxysmal atrial fibrillation Conclusion/Plan: He had brief episodes of age fibrillation during her prior hospitalization and required amiodarone. The case was discussed with cardiology at that time and recommended an outpatient stress test. She is currently in a sinus rhythm and suspect tachycardia related to her COPD. Continue to monitor on telemetry. (8) Hyperlipidemia Conclusion/Plan: Continue her home atorvastatin. (9) Depression Conclusion/Plan: Will continue her home Celexa. Qualifiers: Depression Type: reactive depression Qualified Code(s): F32.9 - Major depressive disorder, single episode, unspecified - Lab Results Lab results reviewed: Yes Fish Bones: 10/23/19 04:56 10/23/19 04:56 - Diagnostic Imaging Results Diagnostic Imaging Results: positive: Final report reviewed - EKG Results EKG Interpreted Independently: Yes EKG Findings: Sinus tachycardia without obvious ischemic changes. QTC is 487. Core Measures - Anticipated LOS I expect patient to be DC'd or transferred within 96 hours.: Yes - Issues Hospital Issues and Management Plan: COPD exacerbation and acute hypercapnic respiratory failure requiring BiPAP. We will plan for IV steroids, antibiotics, being treatments. - DVT/VTE - Prophylaxis VTE/DVT Device ordered at admit?: Yes VTE/DVT Prophylaxis med ordered at admit?: Yes
[2019-10-22] MEDS ORDERED: SODIUM CHLORIDE 0.9% 1,000 ML IV SCH (23:00)
[2019-10-22 23:08] LABS: ABG BASE EXCESS 1.4 mmol/L (-2.0-3.0); ABG HCO3 29.7 mmol/L (22.0-26.0); ABG OXYGEN SATURATION 93 % (94-98); ABG PH 7.29 (7.35-7.45); ABG PO2 71 mmHg (80-100); ABG TCO2 31.7 MMOL/L (21.0-29.0); ALLEN TEST POSITIVE
[2019-10-22 23:10] LABS: ABG PCO2 64 mmHg (34-45)
[2019-10-22] MEDS ORDERED: ALBUTEROL NEB 2.5 MG/3 ML INH PRN (23:11)
[2019-10-23] MEDS: POTASSIUM CHLOR 10 MEQ/100 ML 10 MEQ/100 ML BAG IV SCH ×3 (00:03→01:58)
[2019-10-23] MEDS: DOXYCYCLINE INJ 100 MG in SODIUM CHLORIDE 0.9% MINIBAG 100 ML IV SCH ×2 (00:04→08:59)
[2019-10-23] MEDS ORDERED: ASPIRIN 300 MG SUPP PR STA (00:55)
[2019-10-23] MEDS: SODIUM CHLORIDE FLUSH 0.9% 10 ML SYRINGE IVP SCH ×2 (01:17→08:52)
[2019-10-23] MEDS: IPRATROPIUM/ALBUTEROL 3 ML NEB INH SCH ×4 (01:33→13:59)
[2019-10-23] MEDS ORDERED: HEPARIN 25000UNITS/500ML (D5W) 25,000 UNIT/500 ML BAG IV SCH (02:00)
[2019-10-23 02:13] LABS: HGB - HEMOGLOBIN 12.3 g/dL (12.0-16.0); MEAN CORPUSCULAR HEMOGLOBIN 31.1 pg (27.0-31.0); MEAN CORPUSCULAR HGB CONC 33.6 g/dL (32.0-36.0); MEAN CORPUSCULAR VOLUME 92.7 fL (81.0-99.0); MEAN PLATELET VOLUME 9.4 fL (7.9-10.8); RED BLOOD COUNT 3.95 10^6/uL (4.20-5.40); RED CELL DISTRIBUTION WIDTH 12.3 % (12.0-15.0); WHITE BLOOD COUNT 15.6 x10^3/uL (4.8-10.8)
[2019-10-23 05:09] LABS: BASOPHILS # (AUTO) 0.1 10^3/uL (0.0-0.1); BASOPHILS % (AUTO) 0.4 %; EOSINOPHILS # (AUTO) 0.4 10^3/uL (0.0-0.7); EOSINOPHILS % (AUTO) 2.2 %; HGB - HEMOGLOBIN 12.4 g/dL (12.0-16.0); LYMPHOCYTES # (AUTO) 0.1 10^3/uL (1.5-3.5); LYMPHOCYTES % (AUTO) 0.9 %; MEAN CORPUSCULAR HEMOGLOBIN 31.6 pg (27.0-31.0); MEAN CORPUSCULAR HGB CONC 33.9 g/dL (32.0-36.0); MEAN CORPUSCULAR VOLUME 93.4 fL (81.0-99.0); MEAN PLATELET VOLUME 9.7 fL (7.9-10.8); MONOCYTES # (AUTO) 0.5 10^3/uL (0.0-1.0); MONOCYTES % (AUTO) 3.2 %; NEUTROPHILS # (AUTO) 14.7 10^3/uL (1.5-6.6); NEUTROPHILS % (AUTO) 92.6 %; PLT - PLATELET COUNT 255 10^3/uL (130-450); RED BLOOD COUNT 3.92 10^6/uL (4.20-5.40); RED CELL DISTRIBUTION WIDTH 12.3 % (12.0-15.0); WHITE BLOOD COUNT 15.9 x10^3/uL (4.8-10.8)
[2019-10-23 05:17] LABS: CREATININE 0.8 mg/dL (0.4-1.0); MAGNESIUM 1.8 mg/dL (1.7-2.8); PHOSPHORUS 2.9 mg/dL (2.5-4.6)
[2019-10-23] MEDS ORDERED: ATORVASTATIN 40 MG TABLET PO SCH ×3 (07:53→21:00)
[2019-10-23] MEDS ORDERED: ASPIRIN 325 MG TABLET PO SCH (08:00)
[2019-10-23] MEDS ORDERED: METOPROLOL TARTRATE 25 MG TABLET PO SCH (08:00)
[2019-10-23] MEDS ORDERED: LEVALBUTEROL 1.25 MG/3 ML NEB INH PRN (08:00)
[2019-10-23 08:18] LABS: VBG BASE EXCESS 1.4 mmol/L (-2 - +2); VBG PCO2 51.2 mmHg (41-51); VBG PH 7.353 (7.31-7.41); VBG PO2 53.5 mmHg (25-47); VBG TOTAL CO2 29.4 mmol/L (24-29)
[2019-10-23] MEDS ORDERED: CITALOPRAM 10 MG TABLET PO SCH (09:00)
[2019-10-23] MEDS ORDERED: LISINOPRIL 20 MG TABLET PO SCH (09:00)
[2019-10-23] MEDS ORDERED: methylPREDNISolone SUCCINATE 40 MG/ML VIAL IVP SCH (09:00)
[2019-10-23] MEDS ORDERED: AZITHROMYCIN 250 MG TABLET PO SCH (09:00)
[2019-10-23] MEDS ORDERED: ENOXAPARIN 40 MG/0.4 ML SYRINGE SUBQ SCH (09:00)
[2019-10-23] MEDS ORDERED: amLODIPine 5 MG TABLET PO SCH (09:00)
[2019-10-23] MEDS ORDERED: SODIUM CHLORIDE 0.9% 500 ML ONE (09:15)
[2019-10-23] MEDS ORDERED: FUROSEMIDE 20 MG/2 ML VIAL IVP SCH (10:00)
[2019-10-23] MEDS ORDERED: IBUPROFEN 800 MG TABLET PO PRN (11:06)
--- NOTE | 2019-10-23 14:39 | Discharge Plan ---
Discharge Plan Problem Reviewed?: Yes Disposition: 02 Transfer Acute Care Hosp Condition: Stable Instruction Topics: Heparin injection, Ceftriaxone injection, Doxycycline injection, BiPap About No Smoking: If you smoke, Please STOP! Call for help. Follow-up with: Anila Manzano ARNP [Primary Care Provider] -
[2019-10-23 16:15] VITALS: BP 132/87
[2019-10-23] MEDS ORDERED: cefTRIAXone 1 GM in SODIUM CHLORIDE 0.9% MINIBAG 100 ML IV SCH (21:00)
--- NOTE | 2019-10-24 12:41 | DISCHARGE SUMMARY ---
Discharge Summary Admit Date: 10/22/19 Discharge Date: 10/23/19 Discharging Provider: Dr Lena Omalley Condition at Discharge: Stable Discharge Disposition: 02 Transfer Acute Care Hosp Discharge Facility [facility]: [facility] - DIAGNOSES Admission Diagnoses: (1) COPD exacerbation (2) Acute hypercapnic respiratory failure (3) Chronic respiratory failure with hypoxia (4) Hyponatremia (5) Hypertension (6) Hypokalemia (7) Paroxysmal atrial fibrillation (8) Hyperlipidemia (9) Depression Discharge Diagnoses with Status of Each Condition: See below - HPI History of Present Illness: From the admission H&P of Dr Sarkis Campos: This is a 79-year-old female with a past medical history significant for COPD on 2 L of oxygen at rest 3 L with exertion who presents from home this evening complaining of worsening shortness of breath that began earlier this evening. She reports that she took a DuoNeb breathing treatment as well as albuterol at home without improvement. Her family then called EMS who gave the patient another DuoNeb and albuterol treatment as well as on 25 mg of Solu-Medrol. History is limited from the patient as she is on BiPAP and tachypneic. She reports worsening shortness of breath, cough, and wheezing. She denies chest pain or fever or chills. She reports she has been using her oxygen as previously prescribed. In the emergency department, she found to be afebrile, tachycardic in the 100s, hypertensive, respiratory rate in the low 20s, and saturating 90% on 6 L nasal cannula. Her CBC was unremarkable. BMP revealed a sodium 127 potassium of 3.2. Initial troponin is negative. VBG showed a pH 7.125 with a PCO2 of 101.8. Chest x-ray did not reveal an infiltrate but was suggestive of volume overload. The patient was placed on BiPAP, admitted to the ICU and given another albuterol treatment. - HOSPITAL COURSE Hospital Course: (1) Acute NSTEMI The initial hs-troponin was normal at 6. The next hs-troponin was very elevated at 201, therefore an EKG was repeated 4 hours from the ER EKG, and found new deep T wave inversions in the pati-septal leads. [facility] was called and advised aspirin, iv Heparin and that she would be a candidate for transfer for an angiogram if the Echo showed LV wall motion abnormalities. The next hs- troponins continued to climb to 311>> and peaked at 352 before decreasing to 349. The morning EKG showed even deeper and more widespread T wave inversions. She got a dose of Lipitoir and Toprol. An Echo was done that showed a dilated LV and a thinned and severely hypokinetic anterior wall, septum, apex and distal inferior wall, with LVEF 35% (down from an EF of 55% by Echo done here in 2018). [facility] was contacted again and this lady was kindly accepted in transfer to the CCU on the Hospitalist team. She was transferred by [facility] ambulance in stable condition. (2) Flash Pulmonary edema The BNP was checked as the troponins started to rise, it was 273. Her iv saline was stopped. The CXR was reviewed and because there had been a suggestion of volume overload, she was given iv Lasix. This helped her air hunger. She was able to come off BIPAP to nasal cannula oxygen, as she was being accepted for transfer. (3) COPD exacerbation Her initial presentation was consistent with a COPD exacerbation and she was ordered to get nebs and steroids. (3) Chronic respiratory failure with hypoxia BIPAP was required starting in the ER, then lower supplemental oxygen levels eventually. (4) Hyponatremia Because of the initial sodium of 127 and low BP, she had started to get iv saline. IV saline hydration was stopped as diuresis was begun. (5) Hypertension She had an initial BP of 200, during her air hunger. This dropped to a BP of 107 in an hour but normalized with a few hours of saline hydration. She was able to get the STAT B-yadi ordered (see #1) (6) Hypokalemia This was replaced and followed. (7) Paroxysmal atrial fibrillation This was noted (8) Hyperlipidemia She was on home meds, but she was started on Lipitor 80 mg (as in #1). (9) Depression Her home med was ordered to be continued. - ALLERGIES Allergies/Adverse Reactions: Allergies Allergy/AdvReac Type Severity Reaction Status Date / Time acetaminophen [From Vicodin] Allergy Itching Verified 09/25/19 00:57 alendronate sodium Allergy gi upset Verified 09/25/19 00:57 [From Fosamax] hydrocodone [From Vicodin] Allergy Itching Verified 09/25/19 00:57 raloxifene [From Evista] Allergy Rash Verified 09/25/19 00:57 tramadol Allergy Itching Verified 09/25/19 00:57 valacyclovir Allergy tongue Verified 09/25/19 00:57 swelling varenicline [From Chantix] Allergy paranoya Verified 09/25/19 00:57 - MEDICATIONS Home Medications: Ambulatory Orders Medication Instructions Recorded Confirmed Albuterol Sulfate [Proair Hfa 2 puffs INH Q4H PRN #0 09/28/19 09/26/19 Inhaler] Amlodipine Besylate 10 mg PO DAILY #0 09/28/19 09/26/19 Aspirin 162.5 mg PO DAILY #0 09/28/19 09/26/19 Atorvastatin Calcium 40 mg PO QPM #0 09/28/19 09/26/19 Budesonide [Budesonide EC] 9 mg PO DAILY #0 09/28/19 09/26/19 Citalopram [CeleXA] 5 mg PO DAILY #30 tablet 09/28/19 Fluticasone Propion/Salmeterol 1 puffs INH BID #0 09/28/19 09/26/19 [Wixela 500-50 Inhub] Ipratropium/Albuterol [Duoneb] 3 ml INH Q6H PRN #24 neb 09/28/19 09/26/19 Lisinopril 40 mg PO DAILY #0 09/28/19 09/26/19 Potassium Chloride [Klor-Con 10] 10 meq PO DAILY #0 09/28/19 09/26/19 - PHYSICAL EXAM AT DISCHARGE General Appearance: positive: Mild distress Eyes Bilateral: positive: Normal inspection ENT: positive: No signs of dehydration, Other (wearing BIPAP, then ,later wearing O2 per nasal cannula) Neck: positive: Nml inspection, No JVD Respiratory: positive: Other (Bilateral rales, poor air movement in upper lung [place]) Cardiovascular: positive: Regular rate & rhythm, No murmur Abdomen: positive: Non-tender, No distention Skin: positive: Color nml Extremities: positive: No pedal edema Neurologic/Psychiatric: positive: Oriented x3, Other (Grossly intact) - LABS Result Diagrams: 10/23/19 04:56 10/23/19 04:56 - DIAGNOSTIC IMAGING Diagnostic Imaging Results: Final report reviewed - FOLLOW UP Follow Up: [facility] - TIME SPENT Time Spent in Discharge (Minutes): 65
== END 2019-10-23 16:10 | disposition short-term general hospital (02) | DRG 189 ==
LOC: EDBD → EDUNIT# → ED 20:42 → ICU 22:30
PROVIDERS: ADMIT Internal Medicine; ATTEND Internal Medicine
DX: J96.02 Acute respiratory failure with hypercapnia (principal); I21.4 Non-ST elevation (NSTEMI) myocardial infarction; I50.21 Acute systolic (congestive) heart failure; E78.00 Pure hypercholesterolemia, unspecified; J44.1 Chronic obstructive pulmonary disease with (acute) exacerbation; E87.1 Hypo-osmolality and hyponatremia; J96.11 Chronic respiratory failure with hypoxia; I11.0 Hypertensive heart disease with heart failure; I48.0 Paroxysmal atrial fibrillation; E87.6 Hypokalemia; E78.5 Hyperlipidemia, unspecified; I71.4 Abdominal aortic aneurysm, without rupture; J32.9 Chronic sinusitis, unspecified; F32.9 Major depressive disorder, single episode, unspecified; R32 Unspecified urinary incontinence; R35.0 Frequency of micturition; N30.20 Other chronic cystitis without hematuria; H54.7 Unspecified visual loss; H91.90 Unspecified hearing loss, unspecified ear; M19.90 Unspecified osteoarthritis, unspecified site; G89.29 Other chronic pain; M54.9 Dorsalgia, unspecified; Z96.649 Presence of unspecified artificial hip joint; Z99.81 Dependence on supplemental oxygen; Z87.891 Personal history of nicotine dependence; Z79.51 Long term (current) use of inhaled steroids; Z79.82 Long term (current) use of aspirin; Z79.899 Other long term (current) drug therapy
CPT/HCPCS: 36415; 36600; 71045; 80048; 80053; 82803; 83690; 83735; 83880; 84100; 84484; 85025; 85027; 85520; 87150; 93005; 93306; 94640; 94660; 99284; 99285; A9270

== ENCOUNTER 2019-11-28 11:47 | Outpatient (CLI) | payer MEDICARE, OTHER | END 2019-11-28 11:48 | disposition critical access hospital (66) | LOC: EMS 11:47 | PROVIDERS: ATTEND Surgery | DX: R06.02 Shortness of breath (principal); R05 Cough; R07.89 Other chest pain | CPT/HCPCS: A0425; A0427 ==

== ENCOUNTER 2019-11-28 12:08 | Inpatient (IN) | payer MEDICARE, OTHER ==
[2019-11-28] MEDS ORDERED: methylPREDNISolone SUCCINATE 125 MG/2 ML VIAL IVP STA (12:23)
[2019-11-28] MEDS ORDERED: IPRATROPIUM/ALBUTEROL 3 ML NEB INH STA (12:23)
[2019-11-28] MEDS ORDERED: MAGNESIUM SULFATE 2 GRAM 2 GM/50 ML BAG IV ONE (12:24)
--- NOTE | 2019-11-28 12:31 | ED Physician Documentation ---
PD HPI DYSPNEA - Stated complaint Stated Complaint: SOA - Chief complaint Chief Complaint: Resp - History obtained from History obtained from: Patient, Family - History of Present Illness Timing - onset: Today Timing - details: Gradual onset Associated symptoms: Cough, Wheezing, Chest pain / discomfort. No: Fever Recently seen: Clinic - Additional information Additional information: This is a 79-year-old woman with a history of COPD presents with her daughter complaints that she is had a cough for about 4 days. She was seen at the clinic yesterday and prescribed a benzodiazepine and also started on prednisone 20 mg. Today despite using her nebulizer at home she was gasping for air. The daughter called the ambulance for transport here. She is complaining of pain in the center of her chest. She is been nauseous but no vomiting. She has been admitted on BiPAP for her COPD in the past but never on a ventilator. The patient indicated to me she would not want to be intubated and placed on a ventilator in the event of respiratory failure. Review of Systems Unable to obtain: Other (Acute respiratory distress. Gasping for air) Constitutional: denies: Fever Cardiac: reports: Chest pain / pressure. denies: Pedal edema Respiratory: reports: Dyspnea, Cough GI: reports: Nausea. 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 Cardiovascular: AAA HEENT: Tonsil/Adenoidectomy - Present Medications Home Medications: Ambulatory Orders Medication Instructions Recorded Confirmed Albuterol Sulfate [Proair Hfa 2 puffs INH Q4H PRN #0 09/28/19 09/26/19 Inhaler] Amlodipine Besylate 10 mg PO DAILY #0 09/28/19 09/26/19 Aspirin 162.5 mg PO DAILY #0 09/28/19 09/26/19 Atorvastatin Calcium 40 mg PO QPM #0 09/28/19 09/26/19 Budesonide [Budesonide EC] 9 mg PO DAILY #0 09/28/19 09/26/19 Citalopram [CeleXA] 5 mg PO DAILY #30 tablet 09/28/19 Fluticasone Propion/Salmeterol 1 puffs INH BID #0 09/28/19 09/26/19 [Wixela 500-50 Inhub] Ipratropium/Albuterol [Duoneb] 3 ml INH Q6H PRN #24 neb 09/28/19 09/26/19 Potassium Chloride [Klor-Con 10] 10 meq PO DAILY #0 09/28/19 09/26/19 lisinopriL [Lisinopril] 40 mg PO DAILY #0 09/28/19 09/26/19 - Allergies Allergies/Adverse Reactions: Allergies Allergy/AdvReac Type Severity Reaction Status Date / Time hydrocodone [From Vicodin] Allergy Itching Verified 11/28/19 12:21 raloxifene [From Evista] Allergy Rash Verified 11/28/19 12:21 tramadol Allergy Itching Verified 11/28/19 12:21 valacyclovir Allergy tongue Verified 11/28/19 12:21 swelling alendronate sodium AdvReac gi upset Verified 11/28/19 14:49 [From Fosamax] varenicline [From Chantix] AdvReac PARANOIA Verified 11/28/19 14:49 - Social History Does the pt smoke?: Yes Smoking Status: Former smoker Does the pt drink ETOH?: No Does the pt have substance abuse?: No - Immunizations Immunizations are current?: No - POLST Patient has POLST: No POLST Status: Full Code PD ED PE NORMAL - Vitals Vital signs reviewed: Yes - General General: Alert and oriented X 3, Other (Thin elderly woman gasping for air) - HEENT HEENT: PERRL. No: Moist mucous membranes (Dry mucous membranes) - Cardiac Cardiac: No murmur, Strong equal pulses, Other (Tachycardic) - Respiratory Respiratory: Other (Gasping for air. Diffuse wheezing heard throughout the lung [place]) - Abdomen Abdomen: Normal bowel sounds, Soft - Derm Derm: Normal color, Warm and dry - Extremities Extremities: No edema - Neuro Neuro: Alert and oriented X 3, No motor deficit, No sensory deficit - Psych Psych: Normal mood, Normal affect Results - Vitals Vitals: Vital Signs - 24 hr 11/28/19 11/28/19 11/28/19 12:08 12:22 12:30 Temperature 36.9 C Heart Rate 122 H 111 H Respiratory 22 20 Rate Blood Pressure 173/110 H 159/108 H O2 Saturation 92 96 98 11/28/19 11/28/19 11/28/19 12:37 13:00 13:30 Temperature Heart Rate 107 H 108 H 113 H Respiratory 21 19 18 Rate Blood Pressure 124/79 130/105 H O2 Saturation 97 99 11/28/19 11/28/19 11/28/19 14:00 14:30 14:35 Temperature Heart Rate 105 H 95 94 Respiratory 17 16 Rate Blood Pressure 129/100 H 107/77 O2 Saturation 100 99 Oxygen O2 Source BIPAP Oxygen Flow Rate 3 - EKG (time done) 1223 Rate: Rate (enter#) (115), Tachy Rhythm: Sinus tachycardia Intervals: Wide QRS, Other (PVCs) Ischemia: Non specific changes (ST elevation III, but deep S waves so likely repolarization) 1430 Rate: Rate (enter#) (94) Rhythm: NSR Intervals: Wide QRS Ischemia: Non specific changes Compare to prior EKG: Unchanged from prior EKG - Labs Labs: Laboratory Tests 11/28/19 11/28/19 11/28/19 12:37 12:37 12:37 WBC 21.0 H RBC 3.96 L Hgb 12.8 Hct 37.3 MCV 94.2 MCH 32.3 H MCHC 34.3 RDW 12.4 Plt Count 335 MPV 9.2 Neut # (Auto) Not Reportable Lymph # (Auto) Not Reportable Harnett # (Auto) Not Reportable Eos # (Auto) Not Reportable Baso # (Auto) Not Reportable Absolute Nucleated RBC Not Reportable Total Counted 100 Band Neuts % (Manual) 4 Abnorm Lymph % (Manual) 0 Nucleated RBC % Not Reportable Neutrophils # (Manual) 20.0 H Lymphocytes # (Manual) 0.8 L Monocytes # (Manual) 0.2 Eosinophils # (Manual) 0.0 Basophils # (Manual) 0.0 Differential Comment MANUAL DIFFERENTIAL Manual Slide Review Indicated WBC Morphology NORMAL APPEARANCE Platelet Estimate NORMAL (130-450,000) Platelet Morphology NORMAL APPEARANCE RBC Morph Micro Appear NORMAL APPEARANCE PT 12.3 INR 1.1 Sodium 127 L Potassium 4.2 Chloride 87 L Carbon Dioxide 29 Anion Gap 11.0 BUN 15 Creatinine 0.8 Estimated GFR (MDRD) 70 L Glucose 160 H Calcium 9.2 Magnesium 1.8 Total Bilirubin 0.4 AST 24 ALT 26 Alkaline Phosphatase 22 L Troponin I High Sens B-Natriuretic Peptide Total Protein 7.2 Albumin 4.1 Globulin 3.1 Albumin/Globulin Ratio 1.3 Lipase 22 11/28/19 11/28/19 12:37 12:37 WBC RBC Hgb Hct MCV MCH MCHC RDW Plt Count MPV Neut # (Auto) Lymph # (Auto) Harnett # (Auto) Eos # (Auto) Baso # (Auto) Absolute Nucleated RBC Total Counted Band Neuts % (Manual) Abnorm Lymph % (Manual) Nucleated RBC % Neutrophils # (Manual) Lymphocytes # (Manual) Monocytes # (Manual) Eosinophils # (Manual) Basophils # (Manual) Differential Comment Manual Slide Review WBC Morphology Platelet Estimate Platelet Morphology RBC Morph Micro Appear PT INR Sodium Potassium Chloride Carbon Dioxide Anion Gap BUN Creatinine Estimated GFR (MDRD) Glucose Calcium Magnesium Total Bilirubin AST ALT Alkaline Phosphatase Troponin I High Sens 25.1 H* B-Natriuretic Peptide 152 H Total Protein Albumin Globulin Albumin/Globulin Ratio Lipase - Rads (name of study) CXR Radiology: See rad report (No definite infiltrate) PD MEDICAL DECISION MAKING - ED course Complexity details: re-evaluated patient ED course: 1235: BiPap in place, patient slightly more comfortable. DuoNeb in progress. 1320: WBC is 26,000. She is hyponatremic. High-sensitivity troponin was minimally elevated. Chest x-ray does not show a pneumothorax or infiltrate. She was given magnesium 2 g IV, Solu-Medrol 125 mg IV, Zithromax 500 mg IV. She was still wheezy after the DuoNeb so she was started on a 7.5 mg continuous albuterol on the BiPAP and her heart rates down to 107 wheezing is much improved she is feeling little better just very tired. We will talk to the hospitalist regarding admission. 1400: The hospitalist did phone me back concerned that this patient had to be transferred to a higher level of care at the end of September for a non-STEMI and has a low ejection fraction. The family had not mentioned any of that past history to me. Hospitalist requested a repeat troponin to make sure that that is not elevating in any records that we might be able to obtain from the hospitalization at [facility]. The daughter when asked about the specifics said that indeed her mom had been transferred to [facility] they had done a cardiac catheterization and were told by the studio data analyst that the patient had "the cleanest vessels she had seen all day". They diagnosed her with broken heart syndrome. 1458: Hospitalist reviewed the records from [facility] and has admitted the patient. Departure - Departure Disposition: 66 [facility] DC/Xfer Clinical Impression: COPD exacerbation Condition: Fair
[2019-11-28 12:40] LABS: BASOPHILS % (AUTO) 0.4 %; EOSINOPHILS % (AUTO) 0.5 %; HGB - HEMOGLOBIN 12.8 g/dL (12.0-16.0); LYMPHOCYTES % (AUTO) 4.2 %; MEAN CORPUSCULAR HEMOGLOBIN 32.3 pg (27.0-31.0); MEAN CORPUSCULAR HGB CONC 34.3 g/dL (32.0-36.0); MEAN CORPUSCULAR VOLUME 94.2 fL (81.0-99.0); MEAN PLATELET VOLUME 9.2 fL (7.9-10.8); MONOCYTES % (AUTO) 2.4 %; NEUTROPHILS % (AUTO) 91.5 %; PLT - PLATELET COUNT 335 10^3/uL (130-450); RED BLOOD COUNT 3.96 10^6/uL (4.20-5.40); RED CELL DISTRIBUTION WIDTH 12.4 % (12.0-15.0)
[2019-11-28 12:43] LABS: ABNORMAL LYMPHS % (MANUAL) 0 %
[2019-11-28 12:45] LABS: INR 1.1 (0.8-1.2); PT - PROTHROMBIN TIME 12.3 secs (9.9-12.6)
[2019-11-28 12:53] LABS: ALBUMIN 4.1 g/dL (3.2-5.5); ALBUMIN/GLOBULIN RATIO 1.3 (1.0-2.2); BILIRUBIN,TOTAL 0.4 mg/dL (0.2-1.0); CALCIUM 9.2 mg/dL (8.5-10.3); CREATININE 0.8 mg/dL (0.4-1.0); MAGNESIUM 1.8 mg/dL (1.7-2.8); TOTAL PROTEIN 7.2 g/dL (6.7-8.2)
[2019-11-28] MEDS ORDERED: ALBUTEROL NEB 2.5 MG/3 ML INH STA (12:54)
[2019-11-28 13:00] LABS: BAND NEUTROPHILS % (MANUAL) 4 %; DIFFERENTIAL COMMENT MANUAL DIFFERENTIAL; LYMPHOCYTES # (MANUAL) 0.8 10^3/uL (1.5-3.5); LYMPHOCYTES % (MANUAL) 4 %; MONOCYTES # (MANUAL) 0.2 10^3/uL (0.0-1.0); PLATELET ESTIMATE, MANUAL NORMAL (130-450,000) (NORMAL); PLATELET MORPHOLOGY NORMAL APPEARANCE (NORMAL); RBC MORPHOLOGY (MULTIPLE) NORMAL APPEARANCE (NORMAL)
--- NOTE | 2019-11-28 13:03 | XRAY Report ---
Reason: chest pain Procedure Date: 11/28/2019 Accession Number: [id number] / [id number] Procedure: XR - Chest 1 View X-Ray CPT Code: 93721 Final Report FULL RESULT: EXAM: CHEST RADIOGRAPHY EXAM DATE: 11/28/2019 12:40 PM. CLINICAL HISTORY: Chest pain. COMPARISON: CHEST 1 VIEW 10/22/2019 8:52 PM. TECHNIQUE: 1 view. FINDINGS: Lungs/Pleura: There are bilateral interstitial densities which appear unchanged. The lung volumes are normal. There is no acute consolidation. Negative for pneumothorax. Mediastinum: There is moderate calcification of the aortic arch. Heart size is normal. Other: There is scoliotic curvature of the thoracic spine without significant change. IMPRESSION: Negative for an acute cardiopulmonary abnormality. RADIA
[2019-11-28] MEDS ORDERED: AZITHROMYCIN INJ 500 MG in SODIUM CHLORIDE 0.9% 250 ML IV STA (13:18)
[2019-11-28] MEDS ORDERED: LORazepam 2 MG/ML VIAL IVP STA (13:39)
--- NOTE | 2019-11-28 15:06 | PHARMACY PROGRESS NOTE ---
- Best Possible Medication History Admit Date and Time: Processed by: Pharmacy Medication History completed: Yes Patient Interview: Pt unable to participate Secondary Source(s): Physician records, Pharmacy records, Previous admit records As the person ultimately responsible for medication therapy, providers are able to order a medication from an existing home medication list in [facility] via the "Reconcile Routine" prior to Confirmation of that medication by sales support manager. Such practice is discouraged except when the physician, in their clinical judgment, deems that a medical need exists for a medication without regard to previous use.
--- NOTE | 2019-11-28 16:53 | HISTORY & PHYSICAL EXAMINATION ---
DATE OF SERVICE: 11/28/2019 Physician: Lena Omalley MD HISTORY OF PRESENT ILLNESS: This is a 79-year-old white female with history of COPD, requiring home oxygen. She also has a history of hypertension and was recently admitted here from 10/22/2019 and transferred on 10/23/[address] [facility]. At that hospitalization, she presented with worsening shortness of breath, needed BiPAP, was found to have flash pulmonary edema, developing T-wave abnormalities on EKG and a rising troponin of 6 to 311, then 352. An echo done at our institution showed severely hypokinetic and thinned apex and septum with LVEF of 35%, down from 55%. The discharge summary from [facility] is now available, and it shows that she underwent an echo there that showed an EF of 45% with apical hypokinesis, and a coronary angiogram was done that showed normal coronary arteries x3 and LVEDP 16, which is mildly elevated. She was also seen there by pulmonary consultants, who stated that she had severe pulmonary disease and needed home health, as well as 24-hour supervision secondary to her medical status. She was considered homebound. The patient has been home for 1 month. She presented with complaints of a cough for 3-4 days and worsening shortness of breath. She went to see her PCP yesterday and was prescribed Prednisone 20 mg, as well as an order for by benzodiazepines "for relaxation." Today, she got no better and was gasping, tried her nebulizers with no improvement, and called EMS. She received 2 nebulizer treatments by ambulance and also had no improvement. In the emergency room, she was put on BiPAP and given albuterol continuous inhaler treatments with improvement. She described that she wants to be a DO NOT INTUBATE patient. Her blood pressure at presentation was 159/108 with heart rate 111 in sinus rhythm. With management of the inhalers and supplemental oxygen, her blood pressure has improved to 124/79. Her saturation at presentation on her baseline 2 liters oxygen was 78%, which has improved to 97% on a 40% BiPAP setting, which is improved to 97% on 40% BiPAP setting, now decreased to 35%. The patient is being admitted to the ICU for a COPD exacerbation. PAST MEDICAL HISTORY: Severe chronic obstructive pulmonary disease, stress- induced cardiomyopathy (Takotsubo cardiomyopathy), hypertension, homebound status. ALLERGIES: HYDROCODONE, EVISTA, TRAMADOL, VALACYCLOVIR, FOSAMAX, CHANTIX. MEDICATIONS: 1. Prednisone 20 mg daily. Currently, she is in the middle of a taper down from 40 mg, and unknown what her dose was before the 20 mg. 2. Lisinopril 40 mg daily. 3. HCTZ 25 mg daily. 4. Carvedilol 3.125 mg b.i.d. 5. Spiriva 1 puff daily. 6. Potassium chloride 10 mEq daily. 7. Ativan p.r.n. 8. DuoNeb inhaler every 6 hours p.r.n. 9. Citalopram 10 mg daily. 10. Budesonide 10 mg daily. 11. Lipitor 40 mg every night. 12. Baby aspirin 2 daily. 13. Amlodipine 10 mg daily. 14. ProAir HFA inhaler 2 puffs every 4 hours p.r.n. FAMILY HISTORY: Noncontributory. SOCIAL HISTORY: She is an ex-smoker. No alcohol use history. No illicit drug use history. REVIEW OF SYSTEMS: A comprehensive review of systems was done by chart review. The patient does not give any information because of being on BiPAP. The pertinent positives are listed above, the rest are negative. PHYSICAL EXAMINATION GENERAL: Elderly white female, currently on BiPAP and appears comfortable. VITAL SIGNS: Blood pressure 135/87, heart rate 86 in sinus rhythm. Oxygen saturation is 100% on 40% BiPAP. HEENT: Shows moist oral mucosa. She is somnolent. NECK: No JVD. CHEST: Diffusely diminished breath sounds and poor air movement. No rales, rhonchi or wheezes. HEART: Heart sounds are distant. No audible murmurs. ABDOMEN: Soft, obese, no tenderness. EXTREMITIES: Show no clubbing, cyanosis or edema. NEUROLOGIC: Grossly intact, but lethargic. LABORATORY DATA: Sodium 127, potassium 4.2. Normal BUN and creatinine. Liver tests and lipase. White blood count 21 with a left shift, hemoglobin 12.8, which is about her baseline. Platelet count normal at 335. INR normal at 1.1. Troponins, first one was 25, next one increased to 133. Chest x-ray: Hyperinflated lungs, but no acute findings. EKG: Sinus tachycardia. New left bundle branch block. Since 1 month ago. IMPRESSION/DIAGNOSES 1. Chronic obstructive pulmonary disease exacerbation. 2. Severe chronic obstructive pulmonary disease. 3. Chronic respiratory failure with hypoxia. 4. Left bundle branch block, new since 1 month ago. 5. Stress-induced cardiomyopathy with apical hypokinesis and normal coronary arteries confirmed by angiography 1 month ago. 6. Hyponatremia. 7. Hypertension. 8. Elevated troponins. PLAN: Admit the patient to the ICU, continue with BiPAP and supplemental oxygen, weaning down the oxygen supplement as tolerated. Begin aggressive treatment for COPD exacerbation with IV steroids, nebulizers q.i.d. and p.r.n., Mucinex, Singulair. Begin treatment for bronchitis/empiric treatment for COPD exacerbation using Zithromax 1500 mg total dosing. Follow her chest x-ray for any development of a pneumonia and obtain sputum cultures if she makes them. Continue with medications for blood pressure control. We will change her amlodipine to Cardizem because of her recurrences of tachycardia. The Coreg will be discontinued since it is a non-beta 1 selective beta yadi, which could be adding to her bronchospasm. Continue with her anxiolytic/sleep medication. Respiratory therapy to consider if she is a Trilogy candidate, but the RT just told me she wants to be in Hospice. Begin PT after BIPAP off. Swab for Influenza and treat with Tamiflu if present. CODE STATUS: DNR. DEEP VENOUS THROMBOSIS PROPHYLAXIS: Pharmacotherapy with Lovenox. ATTESTATION: The patient is expected to be discharged or transferred to another facility within 96 hours: Yes. cc: HANNAH TD: 11/28/2019 16:17 LUKE
[2019-11-28] MEDS: IPRATROPIUM/ALBUTEROL 3 ML NEB INH SCH ×2 (17:15→21:57)
[2019-11-28] MEDS ORDERED: diltiaZEM 30 MG TABLET PO ONE (18:00)
[2019-11-28] MEDS: methylPREDNISolone SUCCINATE 125 MG/2 ML VIAL IVP SCH ×2 (18:18→23:07)
[2019-11-28] MEDS: SODIUM CHLORIDE FLUSH 0.9% 10 ML SYRINGE IVP PRN (18:19)
[2019-11-28] MEDS: SODIUM CHLORIDE FLUSH 0.9% 10 ML SYRINGE IVP SCH ×2 (18:19→23:08)
[2019-11-28] MEDS: guaiFENesin 600 MG TABLET PO SCH (20:48)
[2019-11-28] MEDS: ATORVASTATIN 40 MG TABLET PO SCH (20:48)
[2019-11-28] MEDS: MONTELUKAST 10 MG TABLET PO SCH (20:48)
[2019-11-29] MEDS ORDERED: BENZONATATE 100 MG CAPSULE PO PRN (00:03)
[2019-11-29] MEDS: ALBUTEROL NEB 2.5 MG/3 ML INH PRN (00:18)
[2019-11-29] MEDS: guaiFENesin 100 MG/5 ML UDC PO PRN (00:34)
[2019-11-29 04:23] LABS: BASOPHILS % (AUTO) 0.2 %; EOSINOPHILS # (AUTO) 0.1 10^3/uL (0.0-0.7); EOSINOPHILS % (AUTO) 0.6 %; HGB - HEMOGLOBIN 11.7 g/dL (12.0-16.0); LYMPHOCYTES # (AUTO) 0.6 10^3/uL (1.5-3.5); LYMPHOCYTES % (AUTO) 4.9 %; MEAN CORPUSCULAR VOLUME 94.2 fL (81.0-99.0); MEAN PLATELET VOLUME 9.5 fL (7.9-10.8); MONOCYTES # (AUTO) 0.2 10^3/uL (0.0-1.0); MONOCYTES % (AUTO) 1.6 %; NEUTROPHILS # (AUTO) 11.7 10^3/uL (1.5-6.6); NEUTROPHILS % (AUTO) 92.1 %; PLT - PLATELET COUNT 281 10^3/uL (130-450); RED BLOOD COUNT 3.77 10^6/uL (4.20-5.40); RED CELL DISTRIBUTION WIDTH 12.5 % (12.0-15.0); WHITE BLOOD COUNT 12.7 x10^3/uL (4.8-10.8)
[2019-11-29 04:31] LABS: CREATININE 0.7 mg/dL (0.4-1.0); MAGNESIUM 2.4 mg/dL (1.7-2.8)
[2019-11-29] MEDS: LORazepam 0.5 MG TABLET PO PRN (05:36)
[2019-11-29] MEDS: SODIUM CHLORIDE FLUSH 0.9% 10 ML SYRINGE IVP SCH ×3 (06:36→22:25)
[2019-11-29] MEDS: PANTOPRAZOLE 40 MG VIAL IVP SCH (06:36)
[2019-11-29] MEDS: methylPREDNISolone SUCCINATE 125 MG/2 ML VIAL IVP SCH ×3 (06:36→22:25)
[2019-11-29] MEDS: IPRATROPIUM/ALBUTEROL 3 ML NEB INH SCH ×5 (08:11→23:03)
[2019-11-29] MEDS: CITALOPRAM 10 MG TABLET PO SCH (08:38)
[2019-11-29] MEDS: hydroCHLOROthiazide 25 MG TABLET PO SCH (08:38)
[2019-11-29] MEDS: ASPIRIN 325 MG TABLET PO SCH (08:38)
[2019-11-29] MEDS: guaiFENesin 600 MG TABLET PO SCH ×2 (08:38→21:28)
[2019-11-29] MEDS: lisinopriL 20 MG TABLET PO SCH (08:38)
[2019-11-29] MEDS: METOPROLOL SUCCINATE 25 MG TABLET PO SCH (08:39)
[2019-11-29] MEDS: ENOXAPARIN 40 MG/0.4 ML SYRINGE SUBQ SCH (08:47)
[2019-11-29] MEDS: IBUPROFEN 600 MG TABLET PO PRN (09:27)
[2019-11-29] MEDS: BENZOCAINE/MENTHOL LOZENGE MM PRN (09:28)
[2019-11-29 09:30] LABS: VBG PCO2 43.6 mmHg (41-51); VBG PH 7.401 (7.31-7.41); VBG PO2 114.5 mmHg (25-47)
[2019-11-29 09:31] LABS: VBG BASE EXCESS 1.4 mmol/L (-2 - +2); VBG TOTAL CO2 27.8 mmol/L (24-29)
--- NOTE | 2019-11-29 11:32 | PROVIDER PROGRESS NOTE ---
Assessment/Plan - Problem List (1) COPD exacerbation Assessment/Plan: Continue present plan which appears to be stabilizing her: Nebs, IV steroids, Zithromax and ceftriaxone, Singulair, Mucinex, will also add Robitussin which has codeine for cough suppressant. She does not like teselon (2) Chronic respiratory failure with hypoxia Assessment/Plan: She was on home O2 and 3 inhalers and the steroids had a bump up in dose recently. T is weaning her off of BiPAP, she tolerated several hours this afternoon. She may need BiPAP return at the night for rest. If no further need for BiPAP, she can be transferred out of ICU. (3) Takotsubo cardiomyopathy Assessment/Plan: This was the diagnosis made September 2019 when she had flash pulmonary edema and elevated troponins here and was transferred for coronary angiogram at [facility]: Apical hypokinesis was seen, LVEF 45%, coronary angiography showed normal coronaries. Beta-yadi and SUZIE or ARB should be continued for the apical hypokinesis plus aspirin, spironolactone if there is volume retention (4) Constipation Assessment/Plan: Bowel protocol in ICU (5) Hyponatremia Assessment/Plan: saline for hydration and avoid free-water Follow BMP daily - Current Meds Current Meds: Current Medications Generic Name Dose Route Start Last Admin Trade Name Freq PRN Reason Stop Dose Admin Albuterol 2.5 mg 11/28/19 14:43 11/29/19 00:18 INH 2.5 mg Q4HR PRN Administration Wheezing Albuterol/Ipratropium 3 ml 11/28/19 15:00 11/29/19 08:11 Duoneb INH 3 ml RTQID FLY Administration Aspirin 162.5 mg 11/29/19 09:00 11/29/19 08:38 Adalberto PO 162.5 mg DAILY FLY Administration Atorvastatin Calcium 40 mg 11/28/19 21:00 11/28/19 20:48 Lipitor PO 40 mg QPM FLY Administration Citalopram Hydrobromide 10 mg 11/29/19 09:00 11/29/19 08:38 Celexa PO 10 mg DAILY FLY Administration Enoxaparin Sodium 40 mg 11/29/19 09:00 11/29/19 08:47 Lovenox SUBQ 40 mg DAILY FLY Administration Guaifenesin 600 mg 11/28/19 21:00 11/29/19 08:38 Mucinex PO 600 mg BID FLY Administration Guaifenesin 100 mg 11/29/19 00:03 11/29/19 00:34 Robitussin Liquid PO 100 mg Q6HR PRN Administration Cough Hydrochlorothiazide 25 mg 11/29/19 09:00 11/29/19 08:38 Hydrodiuril PO 25 mg DAILY FLY Administration Ibuprofen 600 mg 11/29/19 08:59 11/29/19 09:27 Motrin PO 600 mg Q6HR PRN Administration HEADACHE Lisinopril 40 mg 11/29/19 09:00 11/29/19 08:38 Zestril PO 40 mg DAILY FLY Administration Lorazepam 0.5 mg 11/28/19 17:49 11/29/19 05:36 Ativan PO 0.5 mg DAILY PRN Administration SEVERE ANXIETY Methylprednisolone Sodium Succinate 125 mg 11/28/19 18:00 11/29/19 06:36 Solu-Medrol (125mg Vial) IVP 125 mg TID FLY Administration Metoprolol Succinate 25 mg 11/29/19 09:00 11/29/19 08:39 Toprol Xl PO 25 mg DAILY FLY Administration Montelukast Sodium 10 mg 11/28/19 21:00 11/28/19 20:48 Singulair PO 10 mg QPM FLY Administration Pantoprazole Sodium 40 mg 11/29/19 07:00 11/29/19 06:36 Protonix IVP 40 mg QDAC FLY Administration Sodium Chloride 10 ml 11/28/19 17:00 11/29/19 06:36 Normal Saline Flush 0.9% IVP 10 ml 0100,0900,1700 FLY Administration Sodium Chloride 10 ml 11/28/19 14:43 11/28/19 18:19 Normal Saline Flush 0.9% IVP 10 ml PRN PRN Administration NEEDED PER PROVIDER ORDERS Throat Lozenges 1 lozenge 11/29/19 09:00 11/29/19 09:28 Cepacol MM 1 lozenge Q2HR PRN Administration Mouth Sore Pain - Lab Result Fish Bone Diagrams: 11/29/19 04:05 11/29/19 04:05 - Additional Planning My Orders: My Active Orders 11/29/19 07:00 Pantoprazole [Protonix] 40 mg IVP QDAC 11/29/19 08:59 Ibuprofen [Motrin] 600 mg PO Q6HR PRN 11/29/19 09:00 Aspirin [Adalberto] 162.5 mg PO DAILY Benzocaine/Menthol [Cepacol] 1 lozenge MM Q2HR PRN Citalopram [CeleXA] 10 mg PO DAILY Enoxaparin [Lovenox] 40 mg SUBQ DAILY Metoprolol Succinate [Toprol Xl] 25 mg PO DAILY hydroCHLOROthiazide [Hydrodiuril] 25 mg PO DAILY lisinopriL [Zestril] 40 mg PO DAILY 11/29/19 11:30 Bowel Protocol [Bowel - Constipation Care] [RC] ONCE 11/30/19 05:00 BMP - BASIC METABOLIC PANEL [CHEM] DAILYLAB CBC - COMP BLD CT W/AUTO DIFF [HEME] DAILYLAB 12/01/19 05:00 BMP - BASIC METABOLIC PANEL [CHEM] DAILYLAB CBC - COMP BLD CT W/AUTO DIFF [HEME] DAILYLAB 11/28/19 14:43 Activity Orders [RC] Q2HR Daily Weight [RC] 0600 Home CPAP/BiPAP/NPPV [RC] .ONCE IO [RC] IOSHIFT Initiate Bowel Care Protocol [RC] QSHIFT Initiate ICU Electrolyte Prot. [RC] .protocol Initiate Line Care Protocol [RC] .protocol Initiate Personal Care Protoco [RC] .protocol Vital Signs [RC] Q2HR Albuterol 2.5 mg INH Q4HR PRN Sodium Chloride Flush 0.9% [Normal Saline Flush 0.9%] 10 ml IVP PRN PRN Code Status [OTHERS] Routine Condition of Patient [OTHERS] Routine DVT Prophylaxis [OTHERS] Routine 11/28/19 14:44 Blood Glucose POC [RC] Routine Telemetry- [RC] Q4HR 11/28/19 14:45 BIPAP/CPAP - RT [RC] Routine Baig Continuation and Care [RC] QSHIFT Baig Insertion [RC] Routine Oral Care - Nursing [RC] Routine Oxygen Therapy [RC] Routine 11/28/19 14:48 UA, MICROSCOPIC & CULT IF [URIN] Routine 11/28/19 14:57 Nebulizer/MDI Tx. [RC] .QID/ Q4 PRN 11/28/19 15:00 Ipratropium/Albuterol [Duoneb] 3 ml INH RTQID 11/28/19 16:20 MRSA PCR,CCU ADMIT Routine 11/28/19 17:00 Sodium Chloride Flush 0.9% [Normal Saline Flush 0.9%] 10 ml IVP 0100,0900,1700 11/28/19 17:49 LORazepam [Ativan] 0.5 mg PO DAILY PRN 11/28/19 18:00 methylPREDNISolone SUCCINATE [SOLU-Medrol (125MG VIAL)] 125 mg IVP TID 11/28/19 21:00 Atorvastatin [Lipitor] 40 mg PO QPM 11/28/19 Dinner Low Sodium Diet [DIET] Subjective - Subjective Patient Reports: Feeling Better, Cough Nursing Reports: Other (Sleeping alot, supine) Objective Vital Signs: Vital Signs - 24 hr 11/28/19 11/28/19 11/28/19 12:08 12:22 12:30 Temperature 36.9 C Heart Rate 122 H 111 H Heart Rate [ Monitoring electrodes] Respiratory 22 20 Rate Blood Pressure 173/110 H 159/108 H Blood Pressure [Right Brachial artery] O2 Saturation 92 96 98 11/28/19 11/28/19 11/28/19 12:37 13:00 13:30 Temperature Heart Rate 107 H 108 H 113 H Heart Rate [ Monitoring electrodes] Respiratory 21 19 18 Rate Blood Pressure 124/79 130/105 H Blood Pressure [Right Brachial artery] O2 Saturation 97 99 11/28/19 11/28/19 11/28/19 14:00 14:30 14:35 Temperature Heart Rate 105 H 95 94 Heart Rate [ Monitoring electrodes] Respiratory 17 16 Rate Blood Pressure 129/100 H 107/77 Blood Pressure [Right Brachial artery] O2 Saturation 100 99 11/28/19 11/28/19 11/28/19 15:00 15:30 17:00 Temperature 36.5 C Heart Rate 89 86 Heart Rate [ 87 77 Monitoring electrodes] Respiratory 15 19 16 Rate Blood Pressure 135/87 H Blood Pressure 125/85 H 116/75 [Right Brachial artery] O2 Saturation 99 100 99 11/28/19 11/28/19 11/28/19 17:15 18:37 18:44 Temperature Heart Rate 79 Heart Rate [ 78 Monitoring electrodes] Respiratory 18 16 Rate Blood Pressure 130/87 H Blood Pressure 130/87 H [Right Brachial artery] O2 Saturation 100 11/28/19 11/28/19 11/28/19 19:52 21:00 21:58 Temperature Heart Rate 75 74 Heart Rate [ 75 Monitoring electrodes] Respiratory 13 22 Rate Blood Pressure Blood Pressure 123/83 H [Right Brachial artery] O2 Saturation 100 11/28/19 11/28/19 11/29/19 22:03 23:00 00:19 Temperature Heart Rate 74 88 Heart Rate [ 74 Monitoring electrodes] Respiratory 16 Rate Blood Pressure Blood Pressure 132/77 H [Right Brachial artery] O2 Saturation 100 11/29/19 11/29/19 11/29/19 00:22 01:00 02:00 Temperature Heart Rate 84 76 Heart Rate [ 79 Monitoring electrodes] Respiratory 23 20 Rate Blood Pressure Blood Pressure 120/83 H [Right Brachial artery] O2 Saturation 99 11/29/19 11/29/19 11/29/19 03:00 04:09 05:00 Temperature 36.8 C Heart Rate 76 Heart Rate [ 77 79 Monitoring electrodes] Respiratory 16 20 Rate Blood Pressure Blood Pressure 123/68 156/98 H [Right Brachial artery] O2 Saturation 99 100 11/29/19 11/29/19 11/29/19 06:27 06:56 08:07 Temperature Heart Rate 79 78 Heart Rate [ 85 Monitoring electrodes] Respiratory 25 H Rate Blood Pressure Blood Pressure 145/72 H [Right Brachial artery] O2 Saturation 96 11/29/19 11/29/19 11/29/19 08:10 08:11 08:25 Temperature Heart Rate 85 86 85 Heart Rate [ Monitoring electrodes] Respiratory 24 Rate Blood Pressure Blood Pressure [Right Brachial artery] O2 Saturation 11/29/19 11/29/19 09:00 10:19 Temperature 36.6 C Heart Rate 81 Heart Rate [ 85 Monitoring electrodes] Respiratory 21 Rate Blood Pressure Blood Pressure 132/70 H [Right Brachial artery] O2 Saturation 97 Oxygen O2 Source Nasal cannula Oxygen Flow Rate 3 I&O (Last 24 Hrs): Intake and Output Totals x24h 11/27/19 11/28/19 11/29/19 23:59 23:59 23:59 Intake Total 300 Output Total 100 300 Balance 200 -300 General: Alert, Mild distress (when she is coughing, she is in distress) HEENT: Mucous membr. moist/pink Neck: Supple, No JVD Neuro: Alert Cardiovascular: Regular rate Respiratory: No respiratory distress, Breath sounds nml Abdomen: Soft Extremities: No edema - Results Results: Laboratory Results WBC 12.7 x10^3/uL (4.8-10.8) H 11/29/19 04:05 RBC 3.77 10^6/uL (4.20-5.40) L 11/29/19 04:05 Hgb 11.7 g/dL (12.0-16.0) L 11/29/19 04:05 Hct 35.5 % (37.0-47.0) L 11/29/19 04:05 MCV 94.2 fL (81.0-99.0) 11/29/19 04:05 MCH 31.0 pg (27.0-31.0) 11/29/19 04:05 MCHC 33.0 g/dL (32.0-36.0) 11/29/19 04:05 RDW 12.5 % (12.0-15.0) 11/29/19 04:05 Plt Count 281 10^3/uL (130-450) 11/29/19 04:05 MPV 9.5 fL (7.9-10.8) 11/29/19 04:05 Neut # (Auto) 11.7 10^3/uL (1.5-6.6) H 11/29/19 04:05 Lymph # (Auto) 0.6 10^3/uL (1.5-3.5) L 11/29/19 04:05 [place] # (Auto) 0.2 10^3/uL (0.0-1.0) 11/29/19 04:05 Eos # (Auto) 0.1 10^3/uL (0.0-0.7) 11/29/19 04:05 Baso # (Auto) 0.0 10^3/uL (0.0-0.1) 11/29/19 04:05 Absolute Nucleated RBC 0.00 x10^3/uL 11/29/19 04:05 Total Counted 100 11/28/19 12:37 Band Neuts % (Manual) 4 % (0-10) 11/28/19 12:37 Abnorm Lymph % (Manual) 0 % 11/28/19 12:37 Nucleated RBC % 0.0 /100WBC 11/29/19 04:05 Neutrophils # (Manual) 20.0 10^3/uL (1.5-6.6) H 11/28/19 12:37 Lymphocytes # (Manual) 0.8 10^3/uL (1.5-3.5) L 11/28/19 12:37 Monocytes # (Manual) 0.2 10^3/uL (0.0-1.0) 11/28/19 12:37 Eosinophils # (Manual) 0.0 10^3/uL (0-0.7) 11/28/19 12:37 Basophils # (Manual) 0.0 10^3/uL (0-0.1) 11/28/19 12:37 Differential Comment MANUAL DIFFERENTIAL 11/28/19 12:37 Manual Slide Review Indicated 11/28/19 12:37 WBC Morphology NORMAL APPEARANCE (NORMAL) 11/28/19 12:37 Platelet Estimate NORMAL (130-450,000) (NORMAL) 11/28/19 12:37 Platelet Morphology NORMAL APPEARANCE (NORMAL) 11/28/19 12:37 RBC Morph Micro Appear NORMAL APPEARANCE (NORMAL) 11/28/19 12:37 PT 12.3 secs (9.9-12.6) 11/28/19 12:37 INR 1.1 (0.8-1.2) 11/28/19 12:37 VBG pH 7.401 (7.31-7.41) 11/29/19 09:24 VBG pCO2 43.6 mmHg (41-51) 11/29/19 09:24 VBG pO2 114.5 mmHg (25-47) H 11/29/19 09:24 VBG HCO3 26.5 mmol/L (23-28) 11/29/19 09:24 VBG Total CO2 27.8 mmol/L (24-29) 11/29/19 09:24 VBG O2 Saturation 98.0 % (60-80) H 11/29/19 09:24 VBG Base Excess 1.4 mmol/L (-2 - +2) 11/29/19 09:24 Sodium 129 mmol/L (135-145) L 11/29/19 04:05 Potassium 3.8 mmol/L (3.5-5.0) 11/29/19 04:05 Chloride 90 mmol/L (101-111) L 11/29/19 04:05 Carbon Dioxide 30 mmol/L (21-32) 11/29/19 04:05 Anion Gap 9.0 (6-13) 11/29/19 04:05 BUN 18 mg/dL (6-20) 11/29/19 04:05 Creatinine 0.7 mg/dL (0.4-1.0) 11/29/19 04:05 Estimated GFR (MDRD) 81 (>89) L 11/29/19 04:05 Glucose 153 mg/dL (70-100) H 11/29/19 04:05 Calcium 9.0 mg/dL (8.5-10.3) 11/29/19 04:05 Magnesium 2.4 mg/dL (1.7-2.8) 11/29/19 04:05 Total Bilirubin 0.4 mg/dL (0.2-1.0) 11/28/19 12:37 AST 24 IU/L (10-42) 11/28/19 12:37 ALT 26 IU/L (10-60) 11/28/19 12:37 Alkaline Phosphatase 22 IU/L (42-121) L 11/28/19 12:37 Troponin I High Sens 133.3 ng/L (2.3-14.8) H* 11/28/19 14:38 B-Natriuretic Peptide 152 pg/mL (5-100) H 11/28/19 12:37 Total Protein 7.2 g/dL (6.7-8.2) 11/28/19 12:37 Albumin 4.1 g/dL (3.2-5.5) 11/28/19 12:37 Globulin 3.1 g/dL (2.1-4.2) 11/28/19 12:37 Albumin/Globulin Ratio 1.3 (1.0-2.2) 11/28/19 12:37 Lipase 22 U/L (22-51) 11/28/19 12:37 - Procedures Procedures: Procedures EXCISION OF ASCENDING COLON, ENDO, DIAGN (04/28/18) EXCISION OF RECTUM, ENDO, DIAGN (04/28/18) EXCISION OF STOMACH, ENDO, DIAGN (04/28/18)
[2019-11-29] MEDS: guaiFENesin/CODEINE 5 ML UDC PO PRN ×2 (12:24→18:20)
[2019-11-29 14:45] LABS: BILIRUBIN,URINE NEGATIVE (NEGATIVE); GLUCOSE, URINE (UA) NEGATIVE (NEGATIVE); KETONES,URINE (UA) NEGATIVE (NEGATIVE); LEUKOCYTE ESTERASE, URINE NEGATIVE (NEGATIVE); NITRITE,URINE NEGATIVE (NEGATIVE); OCCULT BLOOD,URINE LARGE (NEGATIVE); PROTEIN,URINE NEGATIVE (NEGATIVE); UROBILINOGEN,URINE 0.2 (NORMAL) E.U./dL (NORMAL)
[2019-11-29 14:46] LABS: CLARITY,URINE CLEAR (CLEAR)
[2019-11-29 14:51] LABS: BACTERIA,URINE None Seen /HPF (None Seen); CASTS, URINE 0-2 Hyaline Casts /LPF; RBC,URINE TNTC /HPF (0-5); SQUAMOUS EPITHELIAL CELL,UR RARE Squamous (<= Few)
[2019-11-29] MEDS: MONTELUKAST 10 MG TABLET PO SCH (21:28)
[2019-11-29] MEDS: ATORVASTATIN 40 MG TABLET PO SCH (21:28)
[2019-11-30] MEDS: LORazepam 0.5 MG TABLET PO PRN ×2 (00:17→21:12)
[2019-11-30] MEDS: guaiFENesin/CODEINE 5 ML UDC PO PRN ×4 (00:19→20:05)
[2019-11-30 05:03] LABS: BASOPHILS % (AUTO) 0.2 %; EOSINOPHILS % (AUTO) 0.1 %; HGB - HEMOGLOBIN 11.3 g/dL (12.0-16.0); LYMPHOCYTES # (AUTO) 0.9 10^3/uL (1.5-3.5); LYMPHOCYTES % (AUTO) 7.1 %; MEAN CORPUSCULAR HGB CONC 33.9 g/dL (32.0-36.0); MEAN CORPUSCULAR VOLUME 91.2 fL (81.0-99.0); MONOCYTES # (AUTO) 0.3 10^3/uL (0.0-1.0); MONOCYTES % (AUTO) 2.6 %; NEUTROPHILS # (AUTO) 11.5 10^3/uL (1.5-6.6); NEUTROPHILS % (AUTO) 89.1 %; PLT - PLATELET COUNT 279 10^3/uL (130-450); RED BLOOD COUNT 3.65 10^6/uL (4.20-5.40); RED CELL DISTRIBUTION WIDTH 12.2 % (12.0-15.0); WHITE BLOOD COUNT 12.9 x10^3/uL (4.8-10.8)
[2019-11-30 05:13] LABS: CALCIUM 8.8 mg/dL (8.5-10.3); CREATININE 0.7 mg/dL (0.4-1.0)
[2019-11-30] MEDS: methylPREDNISolone SUCCINATE 125 MG/2 ML VIAL IVP SCH ×3 (06:12→21:13)
[2019-11-30] MEDS: PANTOPRAZOLE 40 MG VIAL IVP SCH (06:12)
[2019-11-30] MEDS: IPRATROPIUM/ALBUTEROL 3 ML NEB INH SCH ×4 (07:40→20:35)
[2019-11-30] MEDS: IBUPROFEN 600 MG TABLET PO PRN ×2 (07:49→17:30)
[2019-11-30] MEDS: ASPIRIN 325 MG TABLET PO SCH (07:51)
[2019-11-30] MEDS: lisinopriL 20 MG TABLET PO SCH (07:52)
[2019-11-30] MEDS: hydroCHLOROthiazide 25 MG TABLET PO SCH (07:52)
[2019-11-30] MEDS: guaiFENesin 600 MG TABLET PO SCH ×2 (07:52→21:12)
[2019-11-30] MEDS: CITALOPRAM 10 MG TABLET PO SCH (07:52)
[2019-11-30] MEDS: METOPROLOL SUCCINATE 25 MG TABLET PO SCH (07:53)
[2019-11-30] MEDS: ENOXAPARIN 40 MG/0.4 ML SYRINGE SUBQ SCH (07:55)
[2019-11-30] MEDS: polyethylene glycoL 3350 17 GM PACKET PO SCH (08:04)
[2019-11-30] MEDS: SODIUM CHLORIDE FLUSH 0.9% 10 ML SYRINGE IVP SCH ×2 (09:22→17:31)
[2019-11-30] MEDS: guaiFENesin 100 MG/5 ML UDC PO PRN (16:26)
[2019-11-30] MEDS: SODIUM CHLORIDE FLUSH 0.9% 10 ML SYRINGE IVP PRN (17:31)
[2019-11-30] MEDS: AZITHROMYCIN 250 MG TABLET PO SCH (19:00)
[2019-11-30] MEDS: ATORVASTATIN 40 MG TABLET PO SCH (20:05)
[2019-11-30] MEDS: MONTELUKAST 10 MG TABLET PO SCH (20:06)
--- NOTE | 2019-11-30 20:07 | PROVIDER PROGRESS NOTE ---
Assessment/Plan - Problem List (1) COPD exacerbation Assessment/Plan: Continue with nebs, steroids, Mucinex. We will also give 3 days of Zithromax p.o. (2) Chronic respiratory failure with hypoxia Assessment/Plan: She has home O2. Continue with supplemental O2. The patient requested hospice, social work has spoken to her today regarding the difference between palliative care and hospice and the patient has decided (3) Takotsubo cardiomyopathy Assessment/Plan: Continue with her beta-yadi for healing of the apical scar (4) Constipation Assessment/Plan: As needed meds ordered (5) Hyponatremia Assessment/Plan: Continue saline for hydration, the sodium is slightly improved. Follow BMP daily - Current Meds Current Meds: Current Medications Generic Name Dose Route Start Last Admin Trade Name Freq PRN Reason Stop Dose Admin Albuterol 2.5 mg 11/28/19 14:43 11/29/19 00:18 INH 2.5 mg Q4HR PRN Administration Wheezing Albuterol/Ipratropium 3 ml 11/28/19 15:00 11/30/19 12:25 Duoneb INH 3 ml RTQID FLY Administration Aspirin 162.5 mg 11/29/19 09:00 11/30/19 07:51 Adalberto PO 162.5 mg DAILY FLY Administration Atorvastatin Calcium 40 mg 11/28/19 21:00 11/29/19 21:28 Lipitor PO 40 mg QPM FLY Administration Azithromycin 500 mg 11/30/19 18:37 11/30/19 19:00 Zithromax PO 12/03/19 00:00 500 mg DAILY FLY Administration Citalopram Hydrobromide 10 mg 11/29/19 09:00 11/30/19 07:52 Celexa PO 10 mg DAILY FLY Administration Enoxaparin Sodium 40 mg 11/29/19 09:00 11/30/19 07:55 Lovenox SUBQ 40 mg DAILY FLY Administration Guaifenesin 600 mg 11/28/19 21:00 11/30/19 07:52 Mucinex PO 600 mg BID FLY Administration Guaifenesin 100 mg 11/29/19 00:03 11/30/19 16:26 Robitussin Liquid PO 100 mg Q6HR PRN Administration Cough Guaifenesin/Codeine Phosphate 5 ml 11/29/19 12:02 11/30/19 13:15 Robitussin Ac PO 5 ml Q6HR PRN Administration Cough Hydrochlorothiazide 25 mg 11/29/19 09:00 11/30/19 07:52 Hydrodiuril PO 25 mg DAILY FLY Administration Ibuprofen 600 mg 11/29/19 08:59 11/30/19 17:30 Motrin PO 600 mg Q6HR PRN Administration HEADACHE Lisinopril 40 mg 11/29/19 09:00 11/30/19 07:52 Zestril PO 40 mg DAILY FLY Administration Lorazepam 0.5 mg 11/28/19 17:49 11/30/19 00:17 Ativan PO 0.5 mg DAILY PRN Administration SEVERE ANXIETY Methylprednisolone Sodium Succinate 125 mg 11/28/19 18:00 11/30/19 13:59 Solu-Medrol (125mg Vial) IVP 125 mg TID FLY Administration Metoprolol Succinate 25 mg 11/29/19 09:00 11/30/19 07:53 Toprol Xl PO 25 mg DAILY FLY Administration Montelukast Sodium 10 mg 11/28/19 21:00 11/29/19 21:28 Singulair PO 10 mg QPM FLY Administration Pantoprazole Sodium 40 mg 11/29/19 07:00 11/30/19 06:12 Protonix IVP 40 mg QDAC FLY Administration Polyethylene Glycol 17 gm 11/30/19 09:00 11/30/19 08:04 Miralax PO 17 gm DAILY FLY Administration Sodium Chloride 10 ml 11/28/19 17:00 11/30/19 17:31 Normal Saline Flush 0.9% IVP 10 ml 0100,0900,1700 FLY Administration Sodium Chloride 10 ml 11/28/19 14:43 11/30/19 17:31 Normal Saline Flush 0.9% IVP 10 ml PRN PRN Administration NEEDED PER PROVIDER ORDERS Throat Lozenges 1 lozenge 11/29/19 09:00 11/29/19 09:28 Cepacol MM 1 lozenge Q2HR PRN Administration Mouth Sore Pain - Lab Result Fish Bone Diagrams: 11/30/19 04:15 11/30/19 04:15 - Additional Planning My Orders: My Active Orders 11/30/19 Evaluate and Treat PT [PT] Routine 11/30/19 09:00 Polyethylene Glycol 3350 [Miralax] 17 gm PO DAILY 11/30/19 18:37 Azithromycin [Zithromax] 500 mg PO DAILY 11/30/19 18:41 Telemetry- [RC] Q4HR 12/01/19 05:00 BMP - BASIC METABOLIC PANEL [CHEM] DAILYLAB CBC - COMP BLD CT W/AUTO DIFF [HEME] DAILYLAB Subjective - Subjective Patient Reports: Feeling Better Objective Vital Signs: Vital Signs - 24 hr 11/29/19 11/29/19 11/29/19 21:00 23:00 23:04 Temperature 36.8 C 37.0 C Heart Rate 83 Heart Rate [ Activity] Heart Rate [ Brachial] Heart Rate [ 71 80 Monitoring electrodes] Heart Rate [ Supine] Respiratory 13 15 22 Rate Blood Pressure [Activity] Blood Pressure 143/70 H 141/78 H [Right Brachial artery] Blood Pressure [Supine] O2 Saturation 99 94 11/30/19 11/30/19 11/30/19 02:00 04:00 06:00 Temperature 36.9 C 36.7 C Heart Rate Heart Rate [ Activity] Heart Rate [ Brachial] Heart Rate [ 74 77 72 Monitoring electrodes] Heart Rate [ Supine] Respiratory 14 15 14 Rate Blood Pressure [Activity] Blood Pressure 149/77 H 159/77 H 153/81 H [Right Brachial artery] Blood Pressure [Supine] O2 Saturation 99 89 L 98 11/30/19 11/30/19 11/30/19 07:40 08:00 12:00 Temperature 36.3 C L Heart Rate 74 Heart Rate [ 74 Activity] Heart Rate [ Brachial] Heart Rate [ 83 Monitoring electrodes] Heart Rate [ 71 Supine] Respiratory 18 16 Rate Blood Pressure 158/96 H [Activity] Blood Pressure 154/85 H [Right Brachial artery] Blood Pressure 171/91 H [Supine] O2 Saturation 92 11/30/19 11/30/19 11/30/19 12:27 12:45 16:27 Temperature Heart Rate 73 Heart Rate [ Activity] Heart Rate [ Brachial] Heart Rate [ 73 73 Monitoring electrodes] Heart Rate [ Supine] Respiratory 20 19 18 Rate Blood Pressure [Activity] Blood Pressure 158/96 H 176/107 H [Right Brachial artery] Blood Pressure [Supine] O2 Saturation 98 95 11/30/19 11/30/19 17:07 19:52 Temperature 36.7 C Heart Rate Heart Rate [ Activity] Heart Rate [ 77 Brachial] Heart Rate [ 72 Monitoring electrodes] Heart Rate [ Supine] Respiratory 18 Rate Blood Pressure [Activity] Blood Pressure 167/96 H 166/92 H [Right Brachial artery] Blood Pressure [Supine] O2 Saturation 96 Oxygen O2 Source Room air Oxygen Flow Rate 3 I&O (Last 24 Hrs): Intake and Output Totals x24h 11/28/19 11/29/19 11/30/19 23:59 23:59 23:59 Intake Total 300 890 950 Output Total 100 625 875 Balance 200 265 75 General: Alert, Oriented x3 HEENT: Mucous membr. moist/pink, Other (Poor dentition and disheveled) Neck: Supple, No JVD Neuro: Alert, Non Focal Cardiovascular: Regular rate, No murmurs Respiratory: Other (Scattered wheezes, prolonged expiratory phase, no rhonchi) Abdomen: Soft Extremities: No edema - Results Results: Laboratory Results WBC 12.9 x10^3/uL (4.8-10.8) H 11/30/19 04:15 RBC 3.65 10^6/uL (4.20-5.40) L 11/30/19 04:15 Hgb 11.3 g/dL (12.0-16.0) L 11/30/19 04:15 Hct 33.3 % (37.0-47.0) L 11/30/19 04:15 MCV 91.2 fL (81.0-99.0) 11/30/19 04:15 MCH 31.0 pg (27.0-31.0) 11/30/19 04:15 MCHC 33.9 g/dL (32.0-36.0) 11/30/19 04:15 RDW 12.2 % (12.0-15.0) 11/30/19 04:15 Plt Count 279 10^3/uL (130-450) 11/30/19 04:15 MPV 10.0 fL (7.9-10.8) 11/30/19 04:15 Neut # (Auto) 11.5 10^3/uL (1.5-6.6) H 11/30/19 04:15 Lymph # (Auto) 0.9 10^3/uL (1.5-3.5) L 11/30/19 04:15 [place] # (Auto) 0.3 10^3/uL (0.0-1.0) 11/30/19 04:15 Eos # (Auto) 0.0 10^3/uL (0.0-0.7) 11/30/19 04:15 Baso # (Auto) 0.0 10^3/uL (0.0-0.1) 11/30/19 04:15 Absolute Nucleated RBC 0.00 x10^3/uL 11/30/19 04:15 Total Counted 100 11/28/19 12:37 Band Neuts % (Manual) 4 % (0-10) 11/28/19 12:37 Abnorm Lymph % (Manual) 0 % 11/28/19 12:37 Nucleated RBC % 0.0 /100WBC 11/30/19 04:15 Neutrophils # (Manual) 20.0 10^3/uL (1.5-6.6) H 11/28/19 12:37 Lymphocytes # (Manual) 0.8 10^3/uL (1.5-3.5) L 11/28/19 12:37 Monocytes # (Manual) 0.2 10^3/uL (0.0-1.0) 11/28/19 12:37 Eosinophils # (Manual) 0.0 10^3/uL (0-0.7) 11/28/19 12:37 Basophils # (Manual) 0.0 10^3/uL (0-0.1) 11/28/19 12:37 Differential Comment MANUAL DIFFERENTIAL 11/28/19 12:37 Manual Slide Review Indicated 11/28/19 12:37 WBC Morphology NORMAL APPEARANCE (NORMAL) 11/28/19 12:37 Platelet Estimate NORMAL (130-450,000) (NORMAL) 11/28/19 12:37 Platelet Morphology NORMAL APPEARANCE (NORMAL) 11/28/19 12:37 RBC Morph Micro Appear NORMAL APPEARANCE (NORMAL) 11/28/19 12:37 PT 12.3 secs (9.9-12.6) 11/28/19 12:37 INR 1.1 (0.8-1.2) 11/28/19 12:37 VBG pH 7.401 (7.31-7.41) 11/29/19 09:24 VBG pCO2 43.6 mmHg (41-51) 11/29/19 09:24 VBG pO2 114.5 mmHg (25-47) H 11/29/19 09:24 VBG HCO3 26.5 mmol/L (23-28) 11/29/19 09:24 VBG Total CO2 27.8 mmol/L (24-29) 11/29/19 09:24 VBG O2 Saturation 98.0 % (60-80) H 11/29/19 09:24 VBG Base Excess 1.4 mmol/L (-2 - +2) 11/29/19 09:24 Sodium 127 mmol/L (135-145) L 11/30/19 04:15 Potassium 3.8 mmol/L (3.5-5.0) 11/30/19 04:15 Chloride 87 mmol/L (101-111) L 11/30/19 04:15 Carbon Dioxide 31 mmol/L (21-32) 11/30/19 04:15 Anion Gap 9.0 (6-13) 11/30/19 04:15 BUN 24 mg/dL (6-20) H 11/30/19 04:15 Creatinine 0.7 mg/dL (0.4-1.0) 11/30/19 04:15 Estimated GFR (MDRD) 81 (>89) L 11/30/19 04:15 Glucose 137 mg/dL (70-100) H 11/30/19 04:15 Calcium 8.8 mg/dL (8.5-10.3) 11/30/19 04:15 Magnesium 2.4 mg/dL (1.7-2.8) 11/29/19 04:05 Total Bilirubin 0.4 mg/dL (0.2-1.0) 11/28/19 12:37 AST 24 IU/L (10-42) 11/28/19 12:37 ALT 26 IU/L (10-60) 11/28/19 12:37 Alkaline Phosphatase 22 IU/L (42-121) L 11/28/19 12:37 Troponin I High Sens 133.3 ng/L (2.3-14.8) H* 11/28/19 14:38 B-Natriuretic Peptide 152 pg/mL (5-100) H 11/28/19 12:37 Total Protein 7.2 g/dL (6.7-8.2) 11/28/19 12:37 Albumin 4.1 g/dL (3.2-5.5) 11/28/19 12:37 Globulin 3.1 g/dL (2.1-4.2) 11/28/19 12:37 Albumin/Globulin Ratio 1.3 (1.0-2.2) 11/28/19 12:37 Lipase 22 U/L (22-51) 11/28/19 12:37 Urine Color YELLOW 11/29/19 14:30 Urine Clarity CLEAR (CLEAR) 11/29/19 14:30 Urine pH 6.0 PH (5.0-7.5) 11/29/19 14:30 Ur Specific [place] >=1.030 (1.002-1.030) H 11/29/19 14:30 Urine Protein NEGATIVE mg/dL (NEGATIVE) 11/29/19 14:30 Urine Glucose (UA) NEGATIVE mg/dL (NEGATIVE) 11/29/19 14:30 Urine Ketones NEGATIVE mg/dL (NEGATIVE) 11/29/19 14:30 Urine Occult Blood LARGE (NEGATIVE) H 11/29/19 14:30 Urine Nitrite NEGATIVE (NEGATIVE) 11/29/19 14:30 Urine Bilirubin NEGATIVE (NEGATIVE) 11/29/19 14:30 Urine Urobilinogen 0.2 (NORMAL) E.U./dL (NORMAL) 11/29/19 14:30 Ur Leukocyte Esterase NEGATIVE (NEGATIVE) 11/29/19 14:30 Urine RBC TNTC /HPF (0-5) H 11/29/19 14:30 Urine WBC 0-3 /HPF (0-5) 11/29/19 14:30 Ur Squamous Epith Cells RARE Squamous (<= Few) 11/29/19 14:30 Urine Bacteria None Seen /HPF (None Seen) 11/29/19 14:30 Urine Casts 0-2 Hyaline Casts /LPF 11/29/19 14:30 Ur Microscopic Review INDICATED 11/29/19 14:30 Urine Culture Comments NOT INDICATED 11/29/19 14:30 Urine Sodium 28.0 mmol/L 11/30/19 08:36 Nasal Screen MRSA (PCR) NEGATIVE (NEGATIVE) 11/28/19 16:20 - Procedures Procedures: Procedures EXCISION OF ASCENDING COLON, ENDO, DIAGN (04/28/18) EXCISION OF RECTUM, ENDO, DIAGN (04/28/18) EXCISION OF STOMACH, ENDO, DIAGN (04/28/18)
[2019-12-01] MEDS: SODIUM CHLORIDE FLUSH 0.9% 10 ML SYRINGE IVP SCH ×4 (01:16→16:41)
[2019-12-01] MEDS: guaiFENesin/CODEINE 5 ML UDC PO PRN (04:57)
[2019-12-01] MEDS: IPRATROPIUM/ALBUTEROL 3 ML NEB INH SCH ×4 (05:38→18:11)
[2019-12-01 05:46] LABS: BASOPHILS % (AUTO) 0.2 %; EOSINOPHILS % (AUTO) 0.1 %; HGB - HEMOGLOBIN 12.5 g/dL (12.0-16.0); LYMPHOCYTES # (AUTO) 1.1 10^3/uL (1.5-3.5); LYMPHOCYTES % (AUTO) 9.2 %; MEAN CORPUSCULAR HEMOGLOBIN 31.3 pg (27.0-31.0); MEAN CORPUSCULAR HGB CONC 34.4 g/dL (32.0-36.0); MEAN PLATELET VOLUME 9.9 fL (7.9-10.8); MONOCYTES # (AUTO) 0.5 10^3/uL (0.0-1.0); MONOCYTES % (AUTO) 4.5 %; NEUTROPHILS # (AUTO) 9.7 10^3/uL (1.5-6.6); NEUTROPHILS % (AUTO) 84.8 %; PLT - PLATELET COUNT 311 10^3/uL (130-450); RED BLOOD COUNT 3.99 10^6/uL (4.20-5.40); RED CELL DISTRIBUTION WIDTH 12.1 % (12.0-15.0); WHITE BLOOD COUNT 11.5 x10^3/uL (4.8-10.8)
[2019-12-01 05:58] LABS: CREATININE 0.6 mg/dL (0.4-1.0)
[2019-12-01] MEDS: PANTOPRAZOLE 40 MG VIAL IVP SCH (06:10)
[2019-12-01] MEDS: methylPREDNISolone SUCCINATE 125 MG/2 ML VIAL IVP SCH ×3 (06:10→21:13)
[2019-12-01] MEDS: ENOXAPARIN 40 MG/0.4 ML SYRINGE SUBQ SCH (10:19)
[2019-12-01] MEDS: hydroCHLOROthiazide 25 MG TABLET PO SCH (10:19)
[2019-12-01] MEDS: polyethylene glycoL 3350 17 GM PACKET PO SCH (10:19)
[2019-12-01] MEDS: ASPIRIN 325 MG TABLET PO SCH (10:20)
[2019-12-01] MEDS: CITALOPRAM 10 MG TABLET PO SCH (10:20)
[2019-12-01] MEDS: AZITHROMYCIN 250 MG TABLET PO SCH (10:20)
[2019-12-01] MEDS: guaiFENesin 600 MG TABLET PO SCH (10:20)
[2019-12-01] MEDS: METOPROLOL SUCCINATE 25 MG TABLET PO SCH (10:20)
[2019-12-01] MEDS: lisinopriL 20 MG TABLET PO SCH (10:24)
[2019-12-01] MEDS: guaiFENesin/CODEINE 5 ML UDC PO SCH ×2 (12:42→16:42)
--- NOTE | 2019-12-01 13:16 | PROVIDER PROGRESS NOTE ---
Assessment/Plan - Problem List (1) COPD exacerbation Assessment/Plan: Continue with nebs, IV steroids, Mucinex, Singulair, empiric antibiotics. She already has oxygen at home and will be discharged with the same plan. Assessing her dyspnea with activity is now planned. (2) Chronic respiratory failure with hypoxia Assessment/Plan: Continue management as above. She has thought about palliative care versus hospice and has asked to be a hospice candidate. She was seen today by the director of hospitality and is apparently being accepted in the near future, after [facility]. (3) Takotsubo cardiomyopathy Assessment/Plan: No significant dyspnea because she has been mostly at bedrest and in a chair while here. Her beta-yadi was changed from Coreg to Toprol XL, for its Beta1 selectivity, SUZIE continued. We will stop the HCTZ since she is euvolemic since admission, to try and help the hyponatremia. Assessing dyspnea with activity is the plan (4) Constipation Assessment/Plan: Advancing the bowel protocol. (5) Hyponatremia Assessment/Plan: Low Na persists. Her urine sodium was 28, it should be lower to retain sodium. Very likely she has SIADH from 1 of her medications, or possibly from a lung tumor, or is losing salt in excess from HCTZ. Will stop HCTZ, as she has no orthopnea or PND. Continue to follow sodium and BMP daily - Current Meds Current Meds: Current Medications Generic Name Dose Route Start Last Admin Trade Name Freq PRN Reason Stop Dose Admin Albuterol 2.5 mg 11/28/19 14:43 11/29/19 00:18 INH 2.5 mg Q4HR PRN Administration Wheezing Albuterol/Ipratropium 3 ml 11/28/19 15:00 12/01/19 10:07 Duoneb INH 3 ml RTQID FLY Administration Aspirin 162.5 mg 11/29/19 09:00 12/01/19 10:20 Adalberto PO 162.5 mg DAILY FLY Administration Atorvastatin Calcium 40 mg 11/28/19 21:00 11/30/19 20:05 Lipitor PO 40 mg QPM FLY Administration Azithromycin 500 mg 11/30/19 18:37 12/01/19 10:20 Zithromax PO 12/03/19 00:00 500 mg DAILY FLY Administration Citalopram Hydrobromide 10 mg 11/29/19 09:00 12/01/19 10:20 Celexa PO 10 mg DAILY FLY Administration Enoxaparin Sodium 40 mg 11/29/19 09:00 12/01/19 10:19 Lovenox SUBQ 40 mg DAILY FLY Administration Guaifenesin/Codeine Phosphate 5 ml 12/01/19 12:00 12/01/19 12:42 Robitussin Ac PO 5 ml Q6HR FLY Administration Hydrochlorothiazide 25 mg 11/29/19 09:00 12/01/19 10:19 Hydrodiuril PO 25 mg DAILY FLY Administration Ibuprofen 600 mg 11/29/19 08:59 11/30/19 17:30 Motrin PO 600 mg Q6HR PRN Administration HEADACHE Lisinopril 40 mg 11/29/19 09:00 12/01/19 10:24 Zestril PO 40 mg DAILY FLY Administration Lorazepam 0.5 mg 11/28/19 17:49 11/30/19 21:12 Ativan PO 0.5 mg DAILY PRN Administration SEVERE ANXIETY Methylprednisolone Sodium Succinate 125 mg 11/28/19 18:00 12/01/19 06:10 Solu-Medrol (125mg Vial) IVP 125 mg TID FLY Administration Metoprolol Succinate 25 mg 11/29/19 09:00 12/01/19 10:20 Toprol Xl PO 25 mg DAILY FLY Administration Montelukast Sodium 10 mg 11/28/19 21:00 11/30/19 20:06 Singulair PO 10 mg QPM FLY Administration Pantoprazole Sodium 40 mg 11/29/19 07:00 12/01/19 06:10 Protonix IVP 40 mg QDAC FLY Administration Polyethylene Glycol 17 gm 11/30/19 09:00 12/01/19 10:19 Miralax PO 17 gm DAILY FLY Administration Sodium Chloride 10 ml 11/28/19 17:00 12/01/19 10:19 Normal Saline Flush 0.9% IVP 10 ml 0100,0900,1700 FLY Administration Sodium Chloride 10 ml 11/28/19 14:43 11/30/19 17:31 Normal Saline Flush 0.9% IVP 10 ml PRN PRN Administration NEEDED PER PROVIDER ORDERS Throat Lozenges 1 lozenge 11/29/19 09:00 11/29/19 09:28 Cepacol MM 1 lozenge Q2HR PRN Administration Mouth Sore Pain - Lab Result Fish Bone Diagrams: 12/01/19 05:27 12/01/19 05:27 - Additional Planning My Orders: My Active Orders 11/30/19 18:37 Azithromycin [Zithromax] 500 mg PO DAILY 11/30/19 18:41 Telemetry- [RC] Q4HR 12/01/19 Evaluate and Treat OT [OT] Routine Evaluate and Treat PT [PT] Routine 12/01/19 12:00 guaiFENesin/CODEINE [Robitussin AC] 5 ml PO Q6HR Subjective - Subjective Patient Reports: Feeling Better, Other (Slightly less cough, slightly less sh ortness of breath, has not walked around much.) Objective Vital Signs: Vital Signs - 24 hr 11/30/19 11/30/19 11/30/19 16:27 17:07 19:52 Temperature 36.7 C Heart Rate Heart Rate [ 77 Brachial] Heart Rate [ 73 72 Monitoring electrodes] Respiratory 18 18 Rate Blood Pressure 176/107 H 167/96 H 166/92 H [Right Brachial artery] O2 Saturation 95 96 11/30/19 12/01/19 12/01/19 20:35 00:48 05:00 Temperature 36.6 C 36.6 C Heart Rate 77 Heart Rate [ 66 103 H Brachial] Heart Rate [ Monitoring electrodes] Respiratory 18 16 16 Rate Blood Pressure 170/78 H [Right Brachial artery] O2 Saturation 92 97 12/01/19 12/01/19 12/01/19 05:40 07:51 10:07 Temperature 36.6 C Heart Rate 103 H 78 Heart Rate [ 70 Brachial] Heart Rate [ Monitoring electrodes] Respiratory 20 18 16 Rate Blood Pressure 157/72 H [Right Brachial artery] O2 Saturation 95 Oxygen O2 Source Nasal cannula Oxygen Flow Rate 3 I&O (Last 24 Hrs): Intake and Output Totals x24h 11/29/19 11/30/19 12/01/19 23:59 23:59 23:59 Intake Total 890 950 240 Output Total 731 875 600 Balance 265 75 -360 General: Alert, Oriented x3, Other (Appears sad or depressed today. (She did meet with the yard coordinator moments before this).) HEENT: Mucous membr. moist/pink, Other (Wearing O2 n.c.) Neck: Supple, No JVD Neuro: Alert, Non Focal Cardiovascular: Regular rate Respiratory: Other (Prolonged expiratory phase, scattered minimal wheezing, no rales or rhonchi) Abdomen: Soft Extremities: No edema - Results Results: Laboratory Results WBC 11.5 x10^3/uL (4.8-10.8) H 12/01/19 05:27 RBC 3.99 10^6/uL (4.20-5.40) L 12/01/19 05:27 Hgb 12.5 g/dL (12.0-16.0) 12/01/19 05:27 Hct 36.3 % (37.0-47.0) L 12/01/19 05:27 MCV 91.0 fL (81.0-99.0) 12/01/19 05:27 MCH 31.3 pg (27.0-31.0) H 12/01/19 05:27 MCHC 34.4 g/dL (32.0-36.0) 12/01/19 05:27 RDW 12.1 % (12.0-15.0) 12/01/19 05:27 Plt Count 311 10^3/uL (130-450) 12/01/19 05:27 MPV 9.9 fL (7.9-10.8) 12/01/19 05:27 Neut # (Auto) 9.7 10^3/uL (1.5-6.6) H 12/01/19 05:27 Lymph # (Auto) 1.1 10^3/uL (1.5-3.5) L 12/01/19 05:27 [place] # (Auto) 0.5 10^3/uL (0.0-1.0) 12/01/19 05:27 Eos # (Auto) 0.0 10^3/uL (0.0-0.7) 12/01/19 05:27 Baso # (Auto) 0.0 10^3/uL (0.0-0.1) 12/01/19 05:27 Absolute Nucleated RBC 0.00 x10^3/uL 12/01/19 05:27 Total Counted 100 11/28/19 12:37 Band Neuts % (Manual) 4 % (0-10) 11/28/19 12:37 Abnorm Lymph % (Manual) 0 % 11/28/19 12:37 Nucleated RBC % 0.0 /100WBC 12/01/19 05:27 Neutrophils # (Manual) 20.0 10^3/uL (1.5-6.6) H 11/28/19 12:37 Lymphocytes # (Manual) 0.8 10^3/uL (1.5-3.5) L 11/28/19 12:37 Monocytes # (Manual) 0.2 10^3/uL (0.0-1.0) 11/28/19 12:37 Eosinophils # (Manual) 0.0 10^3/uL (0-0.7) 11/28/19 12:37 Basophils # (Manual) 0.0 10^3/uL (0-0.1) 11/28/19 12:37 Differential Comment MANUAL DIFFERENTIAL 11/28/19 12:37 Manual Slide Review Indicated 11/28/19 12:37 WBC Morphology NORMAL APPEARANCE (NORMAL) 11/28/19 12:37 Platelet Estimate NORMAL (130-450,000) (NORMAL) 11/28/19 12:37 Platelet Morphology NORMAL APPEARANCE (NORMAL) 11/28/19 12:37 RBC Morph Micro Appear NORMAL APPEARANCE (NORMAL) 11/28/19 12:37 PT 12.3 secs (9.9-12.6) 11/28/19 12:37 INR 1.1 (0.8-1.2) 11/28/19 12:37 VBG pH 7.401 (7.31-7.41) 11/29/19 09:24 VBG pCO2 43.6 mmHg (41-51) 11/29/19 09:24 VBG pO2 114.5 mmHg (25-47) H 11/29/19 09:24 VBG HCO3 26.5 mmol/L (23-28) 11/29/19 09:24 VBG Total CO2 27.8 mmol/L (24-29) 11/29/19 09:24 VBG O2 Saturation 98.0 % (60-80) H 11/29/19 09:24 VBG Base Excess 1.4 mmol/L (-2 - +2) 11/29/19 09:24 Sodium 129 mmol/L (135-145) L 12/01/19 05:27 Potassium 3.7 mmol/L (3.5-5.0) 12/01/19 05:27 Chloride 89 mmol/L (101-111) L 12/01/19 05:27 Carbon Dioxide 33 mmol/L (21-32) H 12/01/19 05:27 Anion Gap 7.0 (6-13) 12/01/19 05:27 BUN 21 mg/dL (6-20) H 12/01/19 05:27 Creatinine 0.6 mg/dL (0.4-1.0) 12/01/19 05:27 Estimated GFR (MDRD) 97 (>89) 12/01/19 05:27 Glucose 132 mg/dL (70-100) H 12/01/19 05:27 Calcium 9.0 mg/dL (8.5-10.3) 12/01/19 05:27 Magnesium 2.4 mg/dL (1.7-2.8) 11/29/19 04:05 Total Bilirubin 0.4 mg/dL (0.2-1.0) 11/28/19 12:37 AST 24 IU/L (10-42) 11/28/19 12:37 ALT 26 IU/L (10-60) 11/28/19 12:37 Alkaline Phosphatase 22 IU/L (42-121) L 11/28/19 12:37 Troponin I High Sens 133.3 ng/L (2.3-14.8) H* 11/28/19 14:38 B-Natriuretic Peptide 152 pg/mL (5-100) H 11/28/19 12:37 Total Protein 7.2 g/dL (6.7-8.2) 11/28/19 12:37 Albumin 4.1 g/dL (3.2-5.5) 11/28/19 12:37 Globulin 3.1 g/dL (2.1-4.2) 11/28/19 12:37 Albumin/Globulin Ratio 1.3 (1.0-2.2) 11/28/19 12:37 Lipase 22 U/L (22-51) 11/28/19 12:37 Urine Color YELLOW 11/29/19 14:30 Urine Clarity CLEAR (CLEAR) 11/29/19 14:30 Urine pH 6.0 PH (5.0-7.5) 11/29/19 14:30 Ur Specific [place] >=1.030 (1.002-1.030) H 11/29/19 14:30 Urine Protein NEGATIVE mg/dL (NEGATIVE) 11/29/19 14:30 Urine Glucose (UA) NEGATIVE mg/dL (NEGATIVE) 11/29/19 14:30 Urine Ketones NEGATIVE mg/dL (NEGATIVE) 11/29/19 14:30 Urine Occult Blood LARGE (NEGATIVE) H 11/29/19 14:30 Urine Nitrite NEGATIVE (NEGATIVE) 11/29/19 14:30 Urine Bilirubin NEGATIVE (NEGATIVE) 11/29/19 14:30 Urine Urobilinogen 0.2 (NORMAL) E.U./dL (NORMAL) 11/29/19 14:30 Ur Leukocyte Esterase NEGATIVE (NEGATIVE) 11/29/19 14:30 Urine RBC TNTC /HPF (0-5) H 11/29/19 14:30 Urine WBC 0-3 /HPF (0-5) 11/29/19 14:30 Ur Squamous Epith Cells RARE Squamous (<= Few) 11/29/19 14:30 Urine Bacteria None Seen /HPF (None Seen) 11/29/19 14:30 Urine Casts 0-2 Hyaline Casts /LPF 11/29/19 14:30 Ur Microscopic Review INDICATED 11/29/19 14:30 Urine Culture Comments NOT INDICATED 11/29/19 14:30 Urine Sodium 28.0 mmol/L 11/30/19 08:36 Nasal Screen MRSA (PCR) NEGATIVE (NEGATIVE) 11/28/19 16:20 - Procedures Procedures: Procedures EXCISION OF ASCENDING COLON, ENDO, DIAGN (04/28/18) EXCISION OF RECTUM, ENDO, DIAGN (04/28/18) EXCISION OF STOMACH, ENDO, DIAGN (04/28/18)
[2019-12-01] MEDS: LORazepam 0.5 MG TABLET PO PRN (13:53)
[2019-12-01] MEDS: MONTELUKAST 10 MG TABLET PO SCH (21:13)
[2019-12-01] MEDS: ATORVASTATIN 40 MG TABLET PO SCH (21:13)
[2019-12-02] MEDS: ALBUTEROL NEB 2.5 MG/3 ML INH PRN (00:45)
[2019-12-02] MEDS: guaiFENesin/CODEINE 5 ML UDC PO SCH ×4 (01:12→17:05)
[2019-12-02] MEDS: LORazepam 0.5 MG TABLET PO PRN (01:12)
[2019-12-02] MEDS: SODIUM CHLORIDE FLUSH 0.9% 10 ML SYRINGE IVP SCH ×4 (01:12→23:53)
[2019-12-02] MEDS: BENZOCAINE/MENTHOL LOZENGE MM PRN (01:12)
[2019-12-02] MEDS: PANTOPRAZOLE 40 MG VIAL IVP SCH (06:43)
[2019-12-02] MEDS: SODIUM CHLORIDE FLUSH 0.9% 10 ML SYRINGE IVP PRN ×5 (06:44→21:14)
[2019-12-02] MEDS: methylPREDNISolone SUCCINATE 125 MG/2 ML VIAL IVP SCH ×3 (06:48→21:14)
[2019-12-02] MEDS: IPRATROPIUM/ALBUTEROL 3 ML NEB INH SCH ×4 (08:30→15:35)
[2019-12-02] MEDS ORDERED: LOSARTAN 50 MG TABLET PO SCH (09:00)
--- NOTE | 2019-12-02 09:18 | PROVIDER PROGRESS NOTE ---
Assessment/Plan - Problem List (1) COPD exacerbation Assessment/Plan: She is slowly improving. We will begin to taper her steroid dose down. Continue with nebs, Mucinex and codeine for cough suppressant. Yesterday the SUZIE inhibitor was discontinued because of her main symptom of cough. Assess with ambulation today. The patient already has home oxygen to use 24/7. Possible discharge tomorrow to her home. (2) Chronic respiratory failure with hypoxia Assessment/Plan: Assess with ambulation today. The patient already has home oxygen to use 24/7. Continue nebs, Mucinex, Singulair and steroids with a taper as an outpt. Possible discharge tomorrow to her home. Following that, Hospice will accept her onto their service on Wednesday afternoon. (3) Takotsubo cardiomyopathy Assessment/Plan: One month ago, she presented here with flash pulmonary edema and troponins that evelin consistent with an NSTEMI. She was sent to [facility] and underwent coronary angiography that showed normal coronaries but apical hypokinesis was seen consistent with stress-induced cardiomyopathy. LVEF was 40-45%. She was sent home with beta-blockers and SUZIE inhibitors. The beta-yadi she was on was Carvedilol, which is a non-selective beta yadi and may have added to bronchospasm. At this admission, her Beta yadi was changed to Toprol XL, which is Beta-1 selective. She was sent home from [facility] with SUZIE inhibitor Lisonopril, and this has now been stopped because of the cough. Continue with Losartan, starting today. She was also on HCTZ. This was stopped because she was euvolemic and possibly adding to hyponatremia. She may need non-daily Lasix or Spironolactone if she develops volume overload. (4) Hypertension Assessment/Plan: Lisinopril was stopped yesterday to help decrease her cough, losartan was ordered to be started. Blood pressures are excessive this morning over 170 systolic. Will make her losartan dose 100 mg and continue the Atenolol as at home. Decreasing the steroids may also help with blood pressure. (5) Constipation Assessment/Plan: Stopping her diuretic may help this problem. She had a BM on 11/28/2019 but none in the past 4 days Continue with our bowel protocol. (6) Hyponatremia Assessment/Plan: May have been from HCTZ use and the HCTZ was stopped 2 days ago. Urine sodium was checked and was abnormally high for her level of serum sodium, therefore consider SIADH possibly from her lung malignancy. Follow BMP daily. - Current Meds Current Meds: Current Medications Generic Name Dose Route Start Last Admin Trade Name Freq PRN Reason Stop Dose Admin Albuterol 2.5 mg 11/28/19 14:43 12/02/19 00:45 INH 2.5 mg Q4HR PRN Administration Wheezing Albuterol/Ipratropium 3 ml 11/28/19 15:00 12/02/19 08:30 Duoneb INH Not Given RTQID FLY Aspirin 162.5 mg 11/29/19 09:00 12/01/19 10:20 Adalberto PO 162.5 mg DAILY FLY Administration Atorvastatin Calcium 40 mg 11/28/19 21:00 12/01/19 21:13 Lipitor PO 40 mg QPM FLY Administration Azithromycin 500 mg 11/30/19 18:37 12/01/19 10:20 Zithromax PO 12/03/19 00:00 500 mg DAILY FLY Administration Citalopram Hydrobromide 10 mg 11/29/19 09:00 12/01/19 10:20 Celexa PO 10 mg DAILY FLY Administration Enoxaparin Sodium 40 mg 11/29/19 09:00 12/01/19 10:19 Lovenox SUBQ 40 mg DAILY FLY Administration Guaifenesin/Codeine Phosphate 5 ml 12/01/19 12:00 12/02/19 06:52 Robitussin Ac PO 5 ml Q6HR FLY Administration Ibuprofen 600 mg 11/29/19 08:59 11/30/19 17:30 Motrin PO 600 mg Q6HR PRN Administration HEADACHE Lorazepam 0.5 mg 11/28/19 17:49 12/02/19 01:12 Ativan PO 0.5 mg DAILY PRN Administration SEVERE ANXIETY Metoprolol Succinate 25 mg 11/29/19 09:00 12/01/19 10:20 Toprol Xl PO 25 mg DAILY FLY Administration Montelukast Sodium 10 mg 11/28/19 21:00 12/01/19 21:13 Singulair PO 10 mg QPM FLY Administration Pantoprazole Sodium 40 mg 11/29/19 07:00 12/02/19 06:43 Protonix IVP 40 mg QDAC FLY Administration Polyethylene Glycol 17 gm 11/30/19 09:00 12/01/19 10:19 Miralax PO 17 gm DAILY FLY Administration Sodium Chloride 10 ml 11/28/19 17:00 12/02/19 01:12 Normal Saline Flush 0.9% IVP 10 ml 0100,0900,1700 FLY Administration Sodium Chloride 10 ml 11/28/19 14:43 12/02/19 06:56 Normal Saline Flush 0.9% IVP 10 ml PRN PRN Administration NEEDED PER PROVIDER ORDERS Throat Lozenges 1 lozenge 11/29/19 09:00 12/02/19 01:12 Cepacol MM 1 lozenge Q2HR PRN Administration Mouth Sore Pain - Lab Result Fish Bone Diagrams: 12/01/19 05:27 12/01/19 05:27 - Additional Planning My Orders: My Active Orders 12/01/19 12:00 guaiFENesin/CODEINE [Robitussin AC] 5 ml PO Q6HR 12/02/19 09:15 Losartan [Cozaar] 100 mg PO DAILY 12/02/19 14:00 methylPREDNISolone SUCCINATE [SOLU-Medrol (125MG VIAL)] 80 mg IVP TID Subjective - Subjective Patient Reports: Resting Comfortably Nursing Reports: Other (Tired and wants to sleep. Refused PT until she had a shower.) Objective Vital Signs: Vital Signs - 24 hr 12/01/19 12/01/19 12/01/19 10:07 13:00 13:15 Temperature 35.6 C L Heart Rate 78 Heart Rate [ 74 Brachial] Heart Rate [ 75 Supine] Respiratory 16 18 Rate Blood Pressure [Left Brachial artery] Blood Pressure 141/76 H [Right Brachial artery] Blood Pressure 141/76 H [Supine] O2 Saturation 95 12/01/19 12/01/19 12/01/19 14:09 17:00 18:11 Temperature 36.7 C Heart Rate 77 73 Heart Rate [ 78 Brachial] Heart Rate [ Supine] Respiratory 18 18 18 Rate Blood Pressure [Left Brachial artery] Blood Pressure 143/74 H [Right Brachial artery] Blood Pressure [Supine] O2 Saturation 97 12/01/19 12/01/19 12/01/19 21:00 23:00 23:55 Temperature 36.7 C 36.6 C Heart Rate 70 Heart Rate [ 66 75 Brachial] Heart Rate [ Supine] Respiratory 18 16 18 Rate Blood Pressure [Left Brachial artery] Blood Pressure 164/86 H 140/82 H [Right Brachial artery] Blood Pressure [Supine] O2 Saturation 97 94 12/02/19 12/02/19 12/02/19 00:45 06:56 08:48 Temperature 36.8 C 36.8 C Heart Rate 82 Heart Rate [ 72 70 Brachial] Heart Rate [ Supine] Respiratory 20 18 18 Rate Blood Pressure 173/95 H [Left Brachial artery] Blood Pressure 175/97 H [Right Brachial artery] Blood Pressure [Supine] O2 Saturation 96 97 Oxygen O2 Source Nasal cannula Oxygen Flow Rate 3 I&O (Last 24 Hrs): Intake and Output Totals x24h 11/30/19 12/01/19 12/02/19 23:59 23:59 23:59 Intake Total 950 1000 Output Total 875 1500 1150 Balance 75 -500 -1150 General: Other (Lethargic but awakens and is appropriate) HEENT: Mucous membr. moist/pink Neck: Supple Neuro: Alert, Non Focal Cardiovascular: Regular rate Respiratory: No respiratory distress, Other (Scattered wheezes in all lung field) Abdomen: Soft Extremities: No edema - Results Results: Laboratory Results WBC 11.5 x10^3/uL (4.8-10.8) H 12/01/19 05:27 RBC 3.99 10^6/uL (4.20-5.40) L 12/01/19 05:27 Hgb 12.5 g/dL (12.0-16.0) 12/01/19 05:27 Hct 36.3 % (37.0-47.0) L 12/01/19 05:27 MCV 91.0 fL (81.0-99.0) 12/01/19 05:27 MCH 31.3 pg (27.0-31.0) H 12/01/19 05:27 MCHC 34.4 g/dL (32.0-36.0) 12/01/19 05:27 RDW 12.1 % (12.0-15.0) 12/01/19 05:27 Plt Count 311 10^3/uL (130-450) 12/01/19 05:27 MPV 9.9 fL (7.9-10.8) 12/01/19 05:27 Neut # (Auto) 9.7 10^3/uL (1.5-6.6) H 12/01/19 05:27 Lymph # (Auto) 1.1 10^3/uL (1.5-3.5) L 12/01/19 05:27 [place] # (Auto) 0.5 10^3/uL (0.0-1.0) 12/01/19 05:27 Eos # (Auto) 0.0 10^3/uL (0.0-0.7) 12/01/19 05:27 Baso # (Auto) 0.0 10^3/uL (0.0-0.1) 12/01/19 05:27 Absolute Nucleated RBC 0.00 x10^3/uL 12/01/19 05:27 Total Counted 100 11/28/19 12:37 Band Neuts % (Manual) 4 % (0-10) 11/28/19 12:37 Abnorm Lymph % (Manual) 0 % 11/28/19 12:37 Nucleated RBC % 0.0 /100WBC 12/01/19 05:27 Neutrophils # (Manual) 20.0 10^3/uL (1.5-6.6) H 11/28/19 12:37 Lymphocytes # (Manual) 0.8 10^3/uL (1.5-3.5) L 11/28/19 12:37 Monocytes # (Manual) 0.2 10^3/uL (0.0-1.0) 11/28/19 12:37 Eosinophils # (Manual) 0.0 10^3/uL (0-0.7) 11/28/19 12:37 Basophils # (Manual) 0.0 10^3/uL (0-0.1) 11/28/19 12:37 Differential Comment MANUAL DIFFERENTIAL 11/28/19 12:37 Manual Slide Review Indicated 11/28/19 12:37 WBC Morphology NORMAL APPEARANCE (NORMAL) 11/28/19 12:37 Platelet Estimate NORMAL (130-450,000) (NORMAL) 11/28/19 12:37 Platelet Morphology NORMAL APPEARANCE (NORMAL) 11/28/19 12:37 RBC Morph Micro Appear NORMAL APPEARANCE (NORMAL) 11/28/19 12:37 PT 12.3 secs (9.9-12.6) 11/28/19 12:37 INR 1.1 (0.8-1.2) 12/31/19 12:37 VBG pH 7.401 (7.31-7.41) 11/29/19 09:24 VBG pCO2 43.6 mmHg (41-51) 11/29/19 09:24 VBG pO2 114.5 mmHg (25-47) H 11/29/19 09:24 VBG HCO3 26.5 mmol/L (23-28) 11/29/19 09:24 VBG Total CO2 27.8 mmol/L (24-29) 11/29/19 09:24 VBG O2 Saturation 98.0 % (60-80) H 11/29/19 09:24 VBG Base Excess 1.4 mmol/L (-2 - +2) 11/29/19 09:24 Sodium 129 mmol/L (135-145) L 12/01/19 05:27 Potassium 3.7 mmol/L (3.5-5.0) 12/01/19 05:27 Chloride 89 mmol/L (101-111) L 12/01/19 05:27 Carbon Dioxide 33 mmol/L (21-32) H 12/01/19 05:27 Anion Gap 7.0 (6-13) 12/01/19 05:27 BUN 21 mg/dL (6-20) H 12/01/19 05:27 Creatinine 0.6 mg/dL (0.4-1.0) 12/01/19 05:27 Estimated GFR (MDRD) 97 (>89) 12/01/19 05:27 Glucose 132 mg/dL (70-100) H 12/01/19 05:27 Calcium 9.0 mg/dL (8.5-10.3) 12/01/19 05:27 Magnesium 2.4 mg/dL (1.7-2.8) 11/29/19 04:05 Total Bilirubin 0.4 mg/dL (0.2-1.0) 11/28/19 12:37 AST 24 IU/L (10-42) 11/28/19 12:37 ALT 26 IU/L (10-60) 11/28/19 12:37 Alkaline Phosphatase 22 IU/L (42-121) L 11/28/19 12:37 Troponin I High Sens 133.3 ng/L (2.3-14.8) H* 11/28/19 14:38 B-Natriuretic Peptide 152 pg/mL (5-100) H 11/28/19 12:37 Total Protein 7.2 g/dL (6.7-8.2) 11/28/19 12:37 Albumin 4.1 g/dL (3.2-5.5) 11/28/19 12:37 Globulin 3.1 g/dL (2.1-4.2) 11/28/19 12:37 Albumin/Globulin Ratio 1.3 (1.0-2.2) 11/28/19 12:37 Lipase 22 U/L (22-51) 11/28/19 12:37 Urine Color YELLOW 11/29/19 14:30 Urine Clarity CLEAR (CLEAR) 11/29/19 14:30 Urine pH 6.0 PH (5.0-7.5) 11/29/19 14:30 Ur Specific [place] >=1.030 (1.002-1.030) H 11/29/19 14:30 Urine Protein NEGATIVE mg/dL (NEGATIVE) 11/29/19 14:30 Urine Glucose (UA) NEGATIVE mg/dL (NEGATIVE) 11/29/19 14:30 Urine Ketones NEGATIVE mg/dL (NEGATIVE) 11/29/19 14:30 Urine Occult Blood LARGE (NEGATIVE) H 11/29/19 14:30 Urine Nitrite NEGATIVE (NEGATIVE) 11/29/19 14:30 Urine Bilirubin NEGATIVE (NEGATIVE) 11/29/19 14:30 Urine Urobilinogen 0.2 (NORMAL) E.U./dL (NORMAL) 11/29/19 14:30 Ur Leukocyte Esterase NEGATIVE (NEGATIVE) 11/29/19 14:30 Urine RBC TNTC /HPF (0-5) H 11/29/19 14:30 Urine WBC 0-3 /HPF (0-5) 11/29/19 14:30 Ur Squamous Epith Cells RARE Squamous (<= Few) 11/29/19 14:30 Urine Bacteria None Seen /HPF (None Seen) 11/29/19 14:30 Urine Casts 0-2 Hyaline Casts /LPF 11/29/19 14:30 Ur Microscopic Review INDICATED 11/29/19 14:30 Urine Culture Comments NOT INDICATED 11/29/19 14:30 Urine Sodium 28.0 mmol/L 11/30/19 08:36 Nasal Screen MRSA (PCR) NEGATIVE (NEGATIVE) 11/28/19 16:20 Influenza A (Rapid) Negative (Negative) 12/01/19 14:45 Influenza B (Rapid) Negative (Negative) 12/01/19 14:45 - Procedures Procedures: Procedures EXCISION OF ASCENDING COLON, ENDO, DIAGN (04/28/18) EXCISION OF RECTUM, ENDO, DIAGN (04/28/18) EXCISION OF STOMACH, ENDO, DIAGN (04/28/18)
[2019-12-02] MEDS: polyethylene glycoL 3350 17 GM PACKET PO SCH (09:46)
[2019-12-02] MEDS: AZITHROMYCIN 250 MG TABLET PO SCH (09:47)
[2019-12-02] MEDS: METOPROLOL SUCCINATE 25 MG TABLET PO SCH (09:47)
[2019-12-02] MEDS: ASPIRIN 325 MG TABLET PO SCH (09:47)
[2019-12-02] MEDS: LOSARTAN 50 MG TABLET PO SCH (09:47)
[2019-12-02] MEDS: ENOXAPARIN 40 MG/0.4 ML SYRINGE SUBQ SCH (09:48)
[2019-12-02] MEDS: CITALOPRAM 10 MG TABLET PO SCH (09:48)
[2019-12-02] MEDS: IBUPROFEN 600 MG TABLET PO PRN (17:05)
[2019-12-02] MEDS: ATORVASTATIN 40 MG TABLET PO SCH (21:13)
[2019-12-02] MEDS: amLODIPine 5 MG TABLET PO SCH (21:13)
[2019-12-02] MEDS: MONTELUKAST 10 MG TABLET PO SCH (21:13)
[2019-12-03] MEDS: guaiFENesin/CODEINE 5 ML UDC PO SCH (01:48)
[2019-12-03] MEDS: methylPREDNISolone SUCCINATE 125 MG/2 ML VIAL IVP SCH (06:12)
[2019-12-03] MEDS: SODIUM CHLORIDE FLUSH 0.9% 10 ML SYRINGE IVP PRN ×3 (06:13→06:21)
[2019-12-03] MEDS: PANTOPRAZOLE 40 MG VIAL IVP SCH (06:17)
[2019-12-03] MEDS: IPRATROPIUM/ALBUTEROL 3 ML NEB INH SCH (06:26)
[2019-12-03] MEDS: BENZOCAINE/MENTHOL LOZENGE MM PRN (07:24)
[2019-12-03] MEDS ORDERED: guaiFENesin/CODEINE 5 ML UDC PO SCH (08:00)
--- NOTE | 2019-12-03 08:52 | Discharge Plan ---
Discharge Plan Problem Reviewed?: Yes Disposition: Home, Self Care Condition: Fair Prescriptions: LORazepam [Ativan] 0.5 mg PO DAILY PRN #30 tablet PRN Reason: SEVERE ANXIETY Losartan [Cozaar] 100 mg PO DAILY #30 tablet Metoprolol Succinate [Toprol Xl] 25 mg PO DAILY #30 tablet Montelukast [Singulair] 10 mg PO QPM #30 tablet predniSONE [Deltasone] 20 mg PO .TAPER #18 tablet Diet: Low Sodium Activity Restrictions: Activity as Tolerated Shower Restrictions: No Driving Restrictions: Yes (no driving) Assistance Devices: [facility] Concerns: You were in the hospital with this a month ago with sudden congestive heart failure, abnormal cardiac labs, and an echocardiogram that showed part of your heart muscle was not moving very well. You were having a heart attack and we had to send you to [facility]. 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 You also have severe, severe emphysema. You came to us again with 2 to 3 days of severe cough, shortness of breath, gasping for air. Plan of Treatment: 1. You were placed in the ICU because of your severe respiratory distress and you required temporary respiratory support with something called BiPAP. You also needed steroids intravenously, frequent nebulizers and antibiotics. 2. We have substituted some of your medications to take into consideration your heart disease. As such lisinopril was changed to losartan and Coreg was changed to Toprol. 3. You still need to be tapered off of steroids. Care Goals: 1. You have asked for a hospice consult. Hospice will be evaluating you and opening you up to their service after discharge. 2. As stated above, you will need to be tapered off steroids 3. Your new primary care provider will be Dr. Ward Johnson once you are in hospice. Anila Manzano, your former primary care provider, will be notified. 4. During your hospitalization she required a little bit of anxiety relieving medicine called Lorazepam. We are sending it home with you for a prescription that you can fill. It will be once a day. Dr. Johnson may evaluate you and increase it or change other medications. Assessment: Patient expresses understanding's of care goals. No Smoking: If you smoke, Please STOP! Call for help. Follow-up with: Anila Manzano ARNP [Primary Care Provider] -
[2019-12-03 09:12] VITALS: BP 146/73
[2019-12-03] MEDS: SODIUM CHLORIDE FLUSH 0.9% 10 ML SYRINGE IVP SCH (09:27)
[2019-12-03] MEDS: ENOXAPARIN 40 MG/0.4 ML SYRINGE SUBQ SCH (09:27)
[2019-12-03] MEDS: LOSARTAN 50 MG TABLET PO SCH (09:27)
[2019-12-03] MEDS: polyethylene glycoL 3350 17 GM PACKET PO SCH (09:27)
[2019-12-03] MEDS: CITALOPRAM 10 MG TABLET PO SCH (09:27)
[2019-12-03] MEDS: METOPROLOL SUCCINATE 25 MG TABLET PO SCH (09:28)
[2019-12-03] MEDS: amLODIPine 5 MG TABLET PO SCH (09:28)
[2019-12-03] MEDS: ASPIRIN 325 MG TABLET PO SCH (09:28)
[2019-12-03] MEDS: LORazepam 0.5 MG TABLET PO PRN (10:37)
--- NOTE | 2019-12-03 18:17 | DISCHARGE SUMMARY ---
"Discharge Summary Admit Date: 12/29/19 Discharge Date: 12/03/19 Discharging Provider: Smiley Gonsales MD Primary Care Provider: RIYA Lobato Code Status: Do Not Attempt Resuscitation Condition at Discharge: Fair Discharge Disposition: Home, Self Care - DIAGNOSES Discharge Diagnoses with Status of Each Condition: 1. Acute on chronic systolic congestive heart failure 2. Takotsubo cardiomyopathy 3. COPD exacerbation 4. Acute on chronic respiratory failure with hypoxia 5. Hyponatremia 6. Hypertension 7. Elevated troponins - HPI History of Present Illness: 79-year-old female who was admitted September 25 with acute, severe, middle of the night shortness of breath waking her from her sleep. Echocardiogram at that time showed an ejection fraction of 55 to 60%. And she had pulmonary vascular c ongestion on chest x-ray without edema. She was treated as a COPD exacerbation. She then returned October 22 with flash pulmonary edema once again. This time troponins were elevated. Initial troponin was 6. She then subsequently peaked at 352. As such she was treated as an end STEMI. A repeat echocardiogram showed a dilated LV and a thinned and severely hypokinetic anterior wall, septum, apex and distal inferior wall with LVEF 35%. She was put on BiPAP for the flash pulmonary edema. She was also treated as COPD exacerbation again. Initial sodium was 127. Initial blood pressure was 200 systolic. She was transferred to [facility]. There echocardiogram showed an ejection fraction of 45% with apical hypokinesis. Coronary angiogram showed normal coronary arteries. Pulmonology found her to have severe pulmonary disease. She was discharged needing home health as well as 24-hour supervision secondary to her medical status. Patient has been home for 1 month. She now presents to us again with cough for 3 to 4 days, worsening shortness of breath. She saw her PCP the day before admission and was prescribed prednisone and benzodiazepine. Today she was no better after nebulizers and she called EMS. She was felt to be in acute respiratory failure superimposed on chronic respiratory failure with hypoxia. She was placed on BiPAP. Chest x-ray was negative for acute cardiopulmonary abnormality. She was hypertensive. Once again hyponatremic at 127. Troponin was 25.1 and BNP was 152. - CONSULTS | PROCEDURES Procedures: 1. Chest x-ray showing no acute cardiopulmonary abnormality. 2. Troponin 25.1, #2 it was 133.3 - HOSPITAL COURSE Hospital Course: The patient was treated as acute respiratory failure superimposed on chronic respiratory failure with hypoxia. This was due to COPD exacerbation more than it was due to acute on chronic systolic heart failure. She is felt to have takotsobu cardiomyopathy. Troponins are felt to be elevated due to this and not to another NSTEMI. She was sent home from [facility] with beta-blockers and SUZIE inhibitors. The beta yadi she was on was carvedilol which is a nonselective beta-yadi and may have added to bronchospasm. Carvedilol was changed to Toprol-XL. She was also on lisinopril and this is been stopped because of cough and she was changed to losartan. Hydrochlorothiazide was stopped because she was euvolemic and it was felt this was adding to hyponatremia. In the outpatient setting, after this discharge, she would be a candidate for Lasix or spironolactone if she develops volume overload. Because of her hypertension on admission, the losartan was increased to 100 mg. Her highest blood pressure during her stay was 181/83. At discharge she was 146/73. COPD exacerbation was treated with steroids, nebulizers, Mucinex. She gradually improved and is being sent home on a tapered steroid dose. Again, lisinopril was stopped because of cough and she was changed to losartan. She had some constipation during her stay which resolved with bowel protocol. Hyponatremia was monitored. Other than her diuretics being changed there were no other changes. She was admitted with a sodium of 127 and she went up to 129 and was discharged at 127 again. During her stay the patient expressed a desire to transition to palliative treatment. As such the patient will be seen by Dr. Ward Johnson in the [facility] setting. At discharge temperature was 36.6, pulse 72, blood pressure 146/73, respirations 16 and she is 96% saturated on 2 L. She is not going home on oxygen. She is very dyspneic and minimal effort causes her to become anxious and tachypneic. But she does not have any JVD, and there are no crackles. With her anxiety she can get slightly tachycardic at about 100 but will go down to the 80s and 70s pulse rate. Abdomen is benign, normal bowel sounds. The extremities do not have any edema. She is able to get out of bed with increased respiratory effort, and manifest some deafness. She is asked to follow through with Dr. Johnson. HydroDIURIL is being resumed at discharge but she is asked to discuss this with Dr. Johnson or her primary care provider. The change in medications with regards to losartan and Toprol were noted. Greater than 30 minutes was spent coordinating discharge. - ALLERGIES Allergies/Adverse Reactions: Allergies Allergy/AdvReac Type Severity Reaction Status Date / Time hydrocodone [From Vicodin] Allergy Itching Verified 11/28/19 12:21 raloxifene [From Evista] Allergy Rash Verified 11/28/19 12:21 tramadol Allergy Itching Verified 11/28/19 12:21 valacyclovir Allergy tongue Verified 11/28/19 12:21 swelling alendronate sodium AdvReac gi upset Verified 11/28/19 14:49 [From Fosamax] varenicline [From Chantix] AdvReac PARANOIA Verified 11/28/19 14:49 - MEDICATIONS Home Medications: Ambulatory Orders Medication Instructions Recorded Confirmed Albuterol Sulfate [Proair Hfa 2 puffs INH Q4H PRN #0 09/28/19 11/28/19 Inhaler] Amlodipine Besylate 10 mg PO DAILY #0 09/28/19 11/28/19 Aspirin 162.5 mg PO DAILY #0 09/28/19 11/28/19 Atorvastatin Calcium 40 mg PO QPM #0 09/28/19 11/28/19 Budesonide [Budesonide EC] 9 mg PO DAILY #0 09/28/19 11/28/19 Ipratropium/Albuterol [Duoneb] 3 ml INH Q6H PRN #24 neb 09/28/19 11/28/19 Potassium Chloride [Klor-Con 10] 10 meq PO DAILY #0 09/28/19 11/28/19 Citalopram Hydrobromide 10 mg PO DAILY 11/28/19 11/28/19 [Citalopram HBr] LORazepam [Ativan] 0.5 mg PO DAILY PRN MDD 0.5 MG 11/28/19 11/28/19 Tiotropium Grady [Spiriva] 1 puffs INH DAILY 11/28/19 11/28/19 hydroCHLOROthiazide [Hydrodiuril] 25 mg PO DAILY 11/28/19 11/28/19 LORazepam [Ativan] 0.5 mg PO DAILY PRN #30 tablet 12/03/19 Losartan [Cozaar] 100 mg PO DAILY #30 tablet 12/03/19 Metoprolol Succinate [Toprol Xl] 25 mg PO DAILY #30 tablet 12/03/19 Montelukast [Singulair] 10 mg PO QPM #30 tablet 12/03/19 predniSONE [Deltasone] 20 mg PO .TAPER #18 tablet 12/03/19 - LABS Result Diagrams: 12/01/19 05:27 12/01/19 05:27"
== END 2019-12-03 10:45 | disposition home or self-care (01) | DRG 190 ==
LOC: ED 12:08 → ICU 14:42 → MS2 11-30 16:42
PROVIDERS: ADMIT Internal Medicine; ATTEND Specialist
DX: J43.9 Emphysema, unspecified (principal); I50.41 Acute combined systolic (congestive) and diastolic (congestive) heart failure; J96.21 Acute and chronic respiratory failure with hypoxia; E78.00 Pure hypercholesterolemia, unspecified; N30.20 Other chronic cystitis without hematuria; E87.1 Hypo-osmolality and hyponatremia; I11.0 Hypertensive heart disease with heart failure; F41.9 Anxiety disorder, unspecified; R79.89 Other specified abnormal findings of blood chemistry; I44.7 Left bundle-branch block, unspecified; K59.00 Constipation, unspecified; R05 Cough; T46.4X5A Adverse effect of angiotensin-converting-enzyme inhibitors, initial encounter; Y92.009 Unspecified place in unspecified non-institutional (private) residence as the place of occurrence of the external cause; R32 Unspecified urinary incontinence; R35.0 Frequency of micturition; J32.9 Chronic sinusitis, unspecified; M19.90 Unspecified osteoarthritis, unspecified site; M54.9 Dorsalgia, unspecified; H54.7 Unspecified visual loss; H91.90 Unspecified hearing loss, unspecified ear; Z96.649 Presence of unspecified artificial hip joint; Z66 Do not resuscitate; Z51.5 Encounter for palliative care; Z79.51 Long term (current) use of inhaled steroids; Z79.52 Long term (current) use of systemic steroids; Z79.82 Long term (current) use of aspirin; Z87.891 Personal history of nicotine dependence; Z99.81 Dependence on supplemental oxygen; I25.2 Old myocardial infarction
CPT/HCPCS: 36415; 71045; 80048; 80053; 81001; 82803; 83690; 83735; 83880; 84300; 84484; 85025; 85610; 87150; 87275; 87276; 93005; 94640; 94660; 96365; 96367; 96375; 97161; 97165; 97530; 99285; A9270; J1650; J2060; 81003; 87086

== ENCOUNTER 2020-01-05 14:46 | Outpatient (CLI) | payer MEDICARE, OTHER | END 2020-01-05 14:47 | LOC: EMS 14:46 | PROVIDERS: ATTEND Surgery | DX: Z51.5 Encounter for palliative care (principal) | CPT/HCPCS: A0425; A0428 ==